=== PATIENT | female | born 1955 | race Caucasian/White ===

== ENCOUNTER → 2017-12-26 14:20 | Outpatient (CLI) | payer OTHER, SELFPAY ==
--- NOTE | 2017-12-26 | DI.MG.S_ITS ---
BILATERAL DIGITAL SCREENING MAMMOGRAM 3D/2D WITH CAD: 12/26/2017 CLINICAL: Routine screening. Family history of breast cancer. Comparison is made to exams dated: 04/11/2016 mammogram, 12/06/2013 mammogram, and 04/17/2010 mammogram - [facility]. There are scattered fibroglandular elements in both breasts. Current study was also evaluated with a Computer Aided Detection (CAD) system. There is a benign fine calcification within the skin of the right breast at 6 o'clock. There is a benign fine calcification within the skin of the left breast at 6 o'clock. No other significant masses or calcifications are seen in either breast. There has been no significant interval change. IMPRESSION: There is no mammographic evidence of malignancy. A 1 year screening mammogram is recommended. This exam was interpreted at Station ID: [id number]. NOTE: For mammograms, a report in lay terms will be sent to the patient. Approximately 15% of breast malignancies will not be visualized mammographically. In the management of a palpable breast mass, a negative mammogram must not discourage biopsy of a clinically suspicious lesion. Electronically Signed By: Adrián duran/heather:12/26/2017 16:20:25 letter sent: Normal Exam ACR BI-RADS Category 2: Benign Finding(s) 3342F
== END ==
PROVIDERS: PCP Family Medicine; Visit Provider Family Medicine
DX: Z12.31 Encounter for screening mammogram for malignant neoplasm of breast (principal); Z80.3 Family history of malignant neoplasm of breast
CPT/HCPCS: 77063; 77067

== ENCOUNTER → 2018-01-26 09:53 | Outpatient (CLI) | payer OTHER, SELFPAY ==
[2018-01-26 10:57] LABS: Alanine Aminotransferase 43 IU/L (9-52); Albumin 4.3 g/dL (3.5-5.0); Albumin Globulin Ratio 1.4 (1.0-2.8); Alkaline Phosphatase 62 U/L (38-126); Aspartate Aminotransferase 26 IU/L (14-36); BUN Creatinine Ratio 26.7 (6-22); Bilirubin Total 0.5 mg/dL (0.2-1.3); Blood Urea Nitrogen 16 mg/dL (7-17); Calcium 9.8 mg/dL (8.4-10.2); Carbon Dioxide 29 mmol/L (22-32); Chloride 101 mmol/L (98-107); Estimated Glomerular Filt Rate > 60.0 mL/min (>60); Globulin 3.1 g/dL (1.7-4.1); Glucose 96 mg/dL (80-110); HEMOLYSIS < 15 (0-50); Potassium 4.1 mmol/L (3.4-5.1); Sodium 140 mmol/L (137-145); Total Protein 7.4 g/dL (6.3-8.2)
[2018-01-26 11:04] LABS: Add Manual Diff / Slide Review NO; Eosinophils Percent Auto 1.7 % (2-4); Hematocrit 42.2 % (36-46); Mean Corpuscular HGB Conc 35.6 % (30-36); Mean Corpuscular Volume 109.9 fL (80-100); Monocytes Percent Auto 14.3 % (3-14); Neutrophils Absolute Auto 2500 /uL (3000-5900); Platelet Count 277 X10^3/uL (150-400); Red Blood Cell Count 3.84 X10^6/uL (4.0-5.2); Red Cell Distribution Width 15.7 % (11.6-14.8); White Blood Cell Count 4.2 X10^3/uL (4.5-11.0)
[2018-01-26 11:05] LABS: Mean Corpuscular Hemoglobin 39.1 PG (26-34)
== END ==
PROVIDERS: Family Provider Family Medicine; PCP Family Medicine; Visit Provider Internal Medicine Hematology & Oncology
DX: D68.61 Antiphospholipid syndrome (principal)
CPT/HCPCS: 36415; 80053; 85025; 85597; 85613; 85730; 86147

== ENCOUNTER → 2019-02-06 08:13 | Outpatient (CLI) | payer OTHER, SELFPAY ==
--- NOTE | 2019-02-06 | DI.MG.S_ITS ---
BILATERAL DIGITAL SCREENING MAMMOGRAM 3D/2D WITH CAD: 02/06/2019 CLINICAL: Routine screening. Family history of breast cancer. Comparison is made to exams dated: 12/26/2017 mammogram, 04/11/2016 mammogram, and 12/06/2013 mammogram - [facility]. The tissue of both breasts is heterogeneously dense. This may lower the sensitivity of mammography. Current study was also evaluated with a Computer Aided Detection (CAD) system. No significant masses, calcifications, or other findings are seen in either breast. There has been no significant interval change. IMPRESSION: NEGATIVE There is no mammographic evidence of malignancy. A 1 year screening mammogram is recommended. This exam was interpreted at Station ID: [id number]. NOTE: For mammograms, a report in lay terms will be sent to the patient. Approximately 15% of breast malignancies will not be visualized mammographically. In the management of a palpable breast mass, a negative mammogram must not discourage biopsy of a clinically suspicious lesion. Electronically Signed By: Mando sarmiento/heather:02/08/2019 07:31:49 letter sent: Normal Exam ACR BI-RADS Category 1: Negative 3341F
== END ==
PROVIDERS: PCP Family Medicine; Visit Provider Family Medicine
DX: Z12.31 Encounter for screening mammogram for malignant neoplasm of breast (principal); Z80.3 Family history of malignant neoplasm of breast
CPT/HCPCS: 77063; 77067

== ENCOUNTER → 2019-02-22 16:21 | Outpatient (CLI) | payer OTHER, SELFPAY ==
[2019-02-22 18:45] LABS: TSH w/ Reflex to FT4 1.53 uIU/mL (0.47-4.68)
== END ==
PROVIDERS: PCP Family Medicine; Visit Provider Family Medicine
DX: E03.9 Hypothyroidism, unspecified (principal)
CPT/HCPCS: 36415; 84443

== ENCOUNTER → 2019-03-11 09:20 | Oncology outpatient (ONC) | payer OTHER, SELFPAY ==
[2018-02-12 11:53] VITALS: BP 129/81; PULSE 70; RESP 18; TEMP 36.8; O2SAT 95
--- NOTE | 2018-02-12 12:23 | P.PNONC_ITS ---
PN -Subjective Interval history: Sakshi Garcia is 63 year old female. She carries a diagnosis of antiphospholipid antibody syndrome (APS) secondary to lupus anticoagulant. 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 Hypercoagulable workup dated 2006 and 2015: Factor II and factor V Leiden mutation negative (04/15/2006). Antithrombin III activity level normal at 113 ( 01/08/2016). Homocystine level 6.7 (normal less than 12). Anticardiolipin antibody for IgA IgG IgM all <6 ( normal 0-12). Beta-2 glycoprotein antibodies for IgG, IgA and IgM less than 5, 9, and 7, respectively (normal less than 20). Lupus anticoagulant detected on 05/16/2006: Dilute Thiago viper venom test positive at 82.6 seconds, (normal less than 44.5 seconds). She has been followed by Dr. Falk, and lifelong anticoagulation was recommended. She was started on coumadin and continues with Coumadin with INR checks every month which she does at home report. She presents today for her 1 year clinical evaluation. He was last seen by Dr. Falk on 02/11/2017. Clinically, she reports no bleeding or new events of leg pain or chest pain. - Additional ROS All systems PM: reviewed and no additional remarkable complaints except as stated Home Medications and Allergies Home Medications Medication Instructions Recorded Confirmed Type CHOLECALCIFEROL (VITAMIN D) 2,000 iu PO Q DAY #0 09/24/11 01/30/18 History [6 MP] 100 mg Q DAY #0 09/24/11 01/30/18 History infliximab [Remicade] 100 mg IV #0 09/24/11 01/30/18 History enoxaparin [Lovenox] 100 mg SQ QDAY #22 syr 03/28/17 01/30/18 Rx warfarin 7.5 mg tablet 7.5 mg PO QDAY #100 tab 09/25/17 01/30/18 Rx mercaptopurine 50 mg tablet 50 mg PO QDAY #30 tab 10/21/17 01/30/18 Rx levothyroxine 125 mcg tablet 62.5 mcg PO QAM #45 tab 01/07/18 01/30/18 Rx metoprolol tartrate 100 mg tablet 50 mg PO BID #90 tab 01/07/18 01/30/18 Rx omeprazole 20 mg capsule,delayed 20 mg PO QDAY #90 cap 01/07/18 01/30/18 Rx release spironolactone 25 mg tablet 75 mg PO BID #540 tab 01/07/18 01/30/18 Rx Allergies Allergy/AdvReac Type Severity Reaction Status Date / Time sulfamethoxazole Allergy Mild Verified 01/30/18 15:04 [From Bactrim] trimethoprim [From Bactrim] Allergy Mild Verified 01/30/18 15:04 Exam Vital signs: Last Vital Signs Temp 98.3 F 02/12/18 11:53 Pulse 70 02/12/18 11:53 Resp 18 02/12/18 11:53 BP 129/81 02/12/18 11:53 Pulse Ox 95 02/12/18 11:53 ECOG 1 Narrative: Gen: WDWN, NAD, pleasant and cooperative, here by herself. Heent: NCAT, EOMI, PERLLA, aniteric. Neck: supple, no palpable thyromegaly, no palpable lymphadenopathy Rest: no wheezes. clear to auscultation bilaterally Card: RRR, S1 and S2 normal, no MRG Abd: soft, non-tender, no palpable organomegaly Ext: no pitting edema noted Neuro: AOx3, nonfocal. Results - Labs Reviewed. Assessment and Plan (1) Venous thromboembolism (VTE) Problem details: She carries a diagnosis of antiphospholipid antibody syndrome (APS) secondary to lupus anticoagulant. 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 Assessment and Plan: Clinically, she has been doing well. I will continue current coumadin with INR monitoring without any changes. Return to clinic in one year.
[2019-02-15 12:07] LABS: Add Manual Diff / Slide Review NO; Basophils Absolute Auto 100 /uL (0-100); Basophils Percent Auto 0.9 % (0-2); Eosinophils Absolute Auto 100 /uL (0-450); Eosinophils Percent Auto 1.9 % (2-4); Hematocrit 44.8 % (36-46); Hemoglobin 15.5 g/dL (12.0-16.0); Lymphocytes Absolute Auto 1300 /uL (1100-4500); Lymphocytes Percent Auto 22.2 % (25-40); Mean Corpuscular HGB Conc 34.5 % (30-36); Mean Corpuscular Hemoglobin 36.4 PG (26-34); Mean Corpuscular Volume 105.6 fL (80-100); Monocytes Absolute Auto 600 /uL (0-900); Monocytes Percent Auto 10.7 % (3-14); Neutrophils Absolute Auto 3800 /uL (1500-7000); Neutrophils Percent Auto 64.3 % (50-75); Platelet Count 315 X10^3/uL (150-400); Red Blood Cell Count 4.25 X10^6/uL (4.0-5.2); Red Cell Distribution Width 14.3 % (11.6-14.8); White Blood Cell Count 5.9 X10^3/uL (4.5-11.0)
[2019-02-15 12:17] LABS: Alanine Aminotransferase 23 IU/L (<35); Albumin 4.6 g/dL (3.5-5.0); Albumin Globulin Ratio 1.4 (1.0-2.8); Alkaline Phosphatase 80 U/L (38-126); Aspartate Aminotransferase 26 IU/L (14-36); BUN Creatinine Ratio 24.3 (6-22); Bilirubin Total 0.5 mg/dL (0.2-1.3); Blood Urea Nitrogen 17 mg/dL (7-17); Calcium 9.8 mg/dL (8.4-10.2); Carbon Dioxide 31 mmol/L (22-32); Chloride 102 mmol/L (98-107); Estimated Glomerular Filt Rate > 60.0 mL/min (>60); Globulin 3.2 g/dL (1.7-4.1); Glucose 91 mg/dL (80-110); HEMOLYSIS < 15 (0-50); Potassium 3.9 mmol/L (3.4-5.1); Sodium 141 mmol/L (137-145); Total Protein 7.8 g/dL (6.3-8.2)
[2019-02-15 12:22] LABS: D Dimer < 200 ng/mL (<230)
--- NOTE | 2019-02-16 10:39 | ONC.SCHED ---
Patient has been moved for a new patient. Please don't move again.
[2019-03-11 09:54] VITALS: BP 123/76; PULSE 76; RESP 18; TEMP 36.8; O2SAT 96
--- NOTE | 2019-03-11 10:07 | P.PNONC_ITS ---
PN -Subjective Interval history: ID/CC: Sakshi Garcia is 63 year old female with APS and multiple VTE. Hematogy History: She carries a diagnosis of antiphospholipid antibody syndrome (APS) secondary to lupus anticoagulant. 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 Hypercoagulable workup dated 2006 and 2015: Factor II and factor V Leiden mutation negative (04/15/2006). Antithrombin III activity level normal at 113 (01/08/2016). Homocystine level 6.7 (normal less than 12). Anticardiolipin antibody for IgA IgG IgM all <6 ( normal 0-12). Beta-2 glycoprotein antibodies for IgG, IgA and IgM less than 5, 9, and 7, respectively (normal less than 20). Lupus anticoagulant detected on 05/16/2006: Dilute Thiago viper venom test positive at 82.6 seconds, (normal less than 44.5 seconds). She has been followed by Dr. Falk, and lifelong anticoagulation was recommended. She was started on coumadin and continues with Coumadin with INR checks every month which she does at home report. She presents today for her 1 year clinical evaluation. He was last seen by Dr. Falk on 02/11/2017. Treatments: Coumadin Interim Events: She is not using Coumadin and has been followed by Terrance Vallejo. She tolerated very well. No bleeding events. No worsening shortness of breath or chest pain. No abdominal pain. No lower extremity swelling. - Additional ROS All systems PM: reviewed and no additional remarkable complaints except as stated Home Medications and Allergies Home Medications Medication Instructions Recorded Confirmed Type CHOLECALCIFEROL (VITAMIN D) 2,000 iu PO Q DAY #0 09/24/11 03/11/19 History Remicade 100 mg IV Q12W #0 09/24/11 03/11/19 History omeprazole 20 mg capsule,delayed 20 mg PO QDAY #90 cap 01/07/18 03/11/19 Rx release warfarin 7.5 mg tablet 7.5 mg PO QDAY #100 tab 06/17/18 03/11/19 Rx prothrombin time test strips #6 each 07/09/19 01/23/20 Rx mercaptopurine 50 mg tablet 50 mg PO DAILY #90 tab 12/02/18 03/11/19 Rx metoprolol tartrate 100 mg tablet See Rx Instructions .ROUTE 12/03/18 03/11/19 Rx .COMPLEX #90 tablet spironolactone 25 mg tablet See Rx Instructions .ROUTE 12/03/18 03/11/19 Rx .COMPLEX #540 tablet warfarin 5 mg tablet 5 mg PO DAILY #30 tab 02/22/19 03/11/19 Rx levothyroxine 125 mcg tablet See Rx Instructions .ROUTE 02/23/19 03/11/19 Rx .COMPLEX #45 tablet Allergies Allergy/AdvReac Type Severity Reaction Status Date / Time sulfamethoxazole Allergy Mild Verified 02/02/19 09:41 [From Bactrim] trimethoprim [From Bactrim] Allergy Mild Verified 02/02/19 09:41 Exam Vital signs: Vital Signs Temp Pulse Resp BP Pulse Ox 03/11/19 09:54 98.3 F 76 18 123/76 96 Intake and Output 03/10/19 03/11/19 03/11/19 23:59 07:59 15:59 Other: Weight 72.5 kg Patient Weight 03/11/19 23:59 Weight 72.5 kg Narrative: Gen: WDWN, NAD, pleasant and cooperative. HEENT: NCAT, EOMI, PERRLA, anicteric sclera. Neck: Supple, No palpable thyromegaly or lymphadenopathy. Respiratory: CTAB, no wheezes audible. No JVD Cardiovascular: RRR, S1 and S2 normal, no M/G/R. Abdomen: Soft, NTND, BS normal, no palpable organomegaly Extremities: No LE pitting edema. Lymphatic: no palpable lymph nodes in the neck, axillae, or groins. Neurological: AOx3, CN II-XII grossly intact. No focal motor or sensory deficit. Psychiatric: Good judgment and insight; normal affect; normal thought process; cooperative, no depression, no anxiety. Results - Labs Laboratory Last Values WBC 5.9 X10^3/uL (4.5-11.0) 02/15/19 11:55 RBC 4.25 X10^6/uL (4.0-5.2) 02/15/19 11:55 Hgb 15.5 g/dL (12.0-16.0) 02/15/19 11:55 Hct 44.8 % (36-46) 02/15/19 11:55 MCV 105.6 fL (80-100) H 02/15/19 11:55 MCH 36.4 PG (26-34) H 02/15/19 11:55 MCHC 34.5 % (30-36) 02/15/19 11:55 RDW 14.3 % (11.6-14.8) 02/15/19 11:55 Plt Count 315 X10^3/uL (150-400) 02/15/19 11:55 Neut % (Auto) 64.3 % (50-75) 02/15/19 11:55 Lymph % (Auto) 22.2 % (25-40) L 02/15/19 11:55 Barry % (Auto) 10.7 % (3-14) 02/15/19 11:55 Eos % (Auto) 1.9 % (2-4) L 02/15/19 11:55 Baso % (Auto) 0.9 % (0-2) 02/15/19 11:55 Neut # (Auto) 3800 /uL (7419-6130) 02/15/19 11:55 Lymph # (Auto) 1300 /uL (6999-2692) 02/15/19 11:55 Barry # (Auto) 600 /uL (0-900) 02/15/19 11:55 Eos # (Auto) 100 /uL (0-450) 02/15/19 11:55 Baso # (Auto) 100 /uL (0-100) 02/15/19 11:55 D-Dimer < 200 ng/mL (<230) 02/15/19 11:55 Sodium 141 mmol/L (137-145) 02/15/19 11:55 Potassium 3.9 mmol/L (3.4-5.1) 02/15/19 11:55 Chloride 102 mmol/L (98-107) 02/15/19 11:55 Carbon Dioxide 31 mmol/L (22-32) 02/15/19 11:55 BUN 17 mg/dL (7-17) 02/15/19 11:55 Creatinine 0.70 mg/dL (0.52-1.04) 02/15/19 11:55 Estimated GFR > 60.0 mL/min (>60) 02/15/19 11:55 BUN/Creatinine Ratio 24.3 (6-22) H 02/15/19 11:55 Glucose 91 mg/dL (80-110) 02/15/19 11:55 Calcium 9.8 mg/dL (8.4-10.2) 02/15/19 11:55 Total Bilirubin 0.5 mg/dL (0.2-1.3) 02/15/19 11:55 AST 26 IU/L (14-36) 02/15/19 11:55 ALT 23 IU/L (<35) 02/15/19 11:55 Alkaline Phosphatase 80 U/L (38-126) 02/15/19 11:55 Total Protein 7.8 g/dL (6.3-8.2) 02/15/19 11:55 Albumin 4.6 g/dL (3.5-5.0) 02/15/19 11:55 Globulin 3.2 g/dL (1.7-4.1) 02/15/19 11:55 Albumin/Globulin Ratio 1.4 (1.0-2.8) 02/15/19 11:55 Assessment and Plan (1) Venous thromboembolism (VTE) Overview: 64 year old with antiphospholipid antibody syndrome (APS) secondary to lupus anticoagulant and three separate VTE events including portal vein thrombosis in December 2005, right renal vein thrombosis measuring 5 cm extending into the inferior vena cava in March 08, 2006, and right lower extremity DVT in 03/15/2006. Assessment: Clinically, she has been doing well. I recommend continue current coumadin with INR monitoring. I talked with the patient and her that she can either continue follow-up with me or follow-up her primary care provider. If there is any new change or new concern, I encouraged her to call us for a follow-up visit. Patient voiced understanding. Plan: RTC PRN.
== END ==
PROVIDERS: Family Provider Family Medicine; PCP Family Medicine; Visit Provider Internal Medicine Hematology & Oncology
DX: D68.62 Lupus anticoagulant syndrome (principal); Z86.718 Personal history of other venous thrombosis and embolism; Z79.01 Long term (current) use of anticoagulants
CPT/HCPCS: 36415; 80053; 85025; 85379; 99214

== ENCOUNTER 2020-07-17 22:50 | Emergency (ER) | payer MEDICARE, OTHER, SELFPAY ==
--- NOTE | 2020-07-17 22:58 | DI.CT.S_ITS ---
PROCEDURE: CT HEAD/BRAIN WO CON INDICATIONS: trauma TECHNIQUE: Noncontrast 4.5 mm thick angled axial sections acquired from the foramen magnum to the vertex, with coronal and sagittal reformats. For radiation dose reduction, the following was used: automated exposure control, adjustment of mA and/or kV according to patient size. COMPARISON: None. FINDINGS: Image quality: Excellent. CSF spaces: Basal cisterns are patent. No extra-axial fluid collections. The ventricles are symmetric in size and shape. Brain: No intracranial bleeds or masses. There is cerebral volume loss for age, with resultant ventricular and sulcal prominence. There are periventricular and deep white matter chronic small vessel ischemic changes. Skull and face: Calvarium and visualized facial bones appear intact, without suspicious lesions. Sinuses: Visualized sinuses and mastoids are clear. IMPRESSION: Negative for acute stroke, hemorrhage, or mass. No evidence of significant intracranial sequelae of acute trauma. Comment: Final report is concordant with preliminary interpretation provided by [facility]. Dictated by: Eriberto Cook M.D. on 07/18/2020 at 7:50 Approved by: Eriberto Cook M.D. on 07/18/2020 at 7:51
--- NOTE | 2020-07-17 22:58 | DI.CT.S_ITS ---
PROCEDURE: CT CERVICAL SPINE WO CON INDICATIONS: trauma TECHNIQUE: Noncontrast 3 mm thick sections acquired from the skull base to the T4 level. Sagittal and coronal reformats were then constructed. For radiation dose reduction, the following was used: automated exposure control, adjustment of mA and/or kV according to patient size. COMPARISON: None. FINDINGS: Image quality: Excellent. Bones: No fractures or dislocations. Visualized superior ribs are intact. Severe cervical spondylitic change. A large right posterior osteophyte at C2-C3 results in at least moderate narrowing of the right side of the canal at that level. A large left posterior osteophyte at C4-C5 severely narrows the left side of the canal at that level. There is moderate canal stenosis at C5-C6 and C6-C7. There is multilevel bony foraminal narrowing, including severe bilateral foraminal narrowing at C4-C5 and C5-C6. Soft tissues: Prevertebral soft tissues are normal in thickness. No paravertebral hematomas. No apical pneumothoraces. IMPRESSION: 1. No evidence acute cervical fracture or dislocation. 2. Severe cervical spondylosis with multilevel canal stenosis and foraminal stenosis. Comment: Final report is concordant with preliminary interpretation provided by [facility]. Dictated by: Eriberto Cook M.D. on 07/18/2020 at 7:59 Approved by: Eriberto Cook M.D. on 07/18/2020 at 8:01
[2020-07-17 23:00] VITALS: BP 124/76; PULSE 87; RESP 20; TEMP 37.5; O2SAT 97
--- NOTE | 2020-07-18 00:11 | ED_ITS ---
HPI - Fall General Chief Complaint: Trauma Stated Complaint: FALL HIT HEAD Time Seen by Provider: 07/18/20 00:10 Source: patient and family Mode of arrival: Wheelchair History of Present Illness HPI Narrative: Patient is a 65-year-old female who is an alcoholic on Coumadin for antiphospholipid antibody presenting after a ground level fall. She was sleeping she got out of bed tripped on the step stool to get into her bed hitting the nightstand. heard right away and came up there was no loss of consciousness. She has no neck pain she has a mild right ankle pains is ambulatory on. She does drink alcohol and admits to drinking alcohol tonight. Related Data Home Medications Medication Instructions Recorded Confirmed Remicade 100 mg IV Q12W #0 09/24/11 03/11/19 Previous Rx's Medication Instructions Recorded warfarin 7.5 mg tablet 7.5 mg PO QDAY #100 tab 06/17/18 prothrombin time test strips #6 each 08/25/18 warfarin 5 mg tablet 5 mg PO DAILY #90 tab 08/03/19 mercaptopurine 50 mg tablet 50 mg PO DAILY #90 tab 10/11/19 spironolactone 25 mg tablet See Rx Instructions .ROUTE 10/11/19 .COMPLEX #540 tablet omeprazole 20 mg capsule,delayed 20 mg PO QDAY #90 cap 10/21/19 release levothyroxine 125 mcg tablet See Rx Instructions .ROUTE 06/06/20 .COMPLEX #45 tablet metoprolol tartrate 100 mg tablet See Rx Instructions .ROUTE 06/06/20 .COMPLEX #90 tablet disulfiram 250 mg tablet 250 mg PO DAILY #90 tab 06/08/20 Allergies Allergy/AdvReac Type Severity Reaction Status Date / Time sulfamethoxazole Allergy Mild Verified 06/08/20 10:10 [From Bactrim] trimethoprim [From Bactrim] Allergy Mild Verified 06/08/20 10:10 Review of Systems Review of Systems Narrative: GENERAL: Denies chills, fatigue, malaise, fever, sweats, travel HEENT: Denies sinus pain, ear pain, sore throat, difficulty swallowing, neck pain RESPIRATORY: Denies dyspnea, cough, wheezing, hemoptysis, sputum. CARDIOVASCULAR: Denies chest pain, palpitations, orthopnea, edema GASTROINTESTINAL: Denies nausea, vomiting, abdominal pain, diarrhea, constipation, melena. : Denies dysuria, frequency, incontinence, hematuria, urinary retention, flank pain. MUSCULOSKELETAL: Denies weakness, joint pain, or bony pain SKIN: No rash, no erythema, no pruritus NEUROLOGIC: Head injury, see HPI PSYCHIATRIC: No concerning psychosocial issues. 12 point review of systems is negative except for those stated above and HPI Patient History Medical History Antiphospholipid antibody syndrome Deep vein thrombosis Depression Psoriasis Ulcerative colitis Surgical History S/P total abdominal hysterectomy and bilateral salpingo-oophorectomy Family History Mother Depression Father No problems noted. Social History marital status: Smoking Status: Never smoker alcohol intake: current (ON OCCASION) substance use type: does not use Smoking Status: Never smoker Exam Initial Vital Signs Initial Vital Signs: Vital Signs Temperature 99.5 F 07/17/20 23:00 Pulse Rate 87 07/17/20 23:00 Respiratory Rate 20 07/17/20 23:00 Blood Pressure 124/76 07/17/20 23:00 Pulse Oximetry 97 07/17/20 23:00 GENERAL: Alert well-appearing 65-year-old female and in no acute distress. HEENT: Head small right posterior contusion,EOMI, pupils reactive, face symmetric, moist mucous membranes NECK: No vertebral tenderness no step-off CARDIOVASCULAR: Regular rate and rhythm without murmurs, rubs or gallops. RESPIRATORY: Breath sounds equal bilaterally, no wheezes rales or rhonchi. ABDOMEN: Soft, nontender. Normoactive bowel sounds all 4 quadrants. No guarding or rebound. EXTREMITIES: Normal range of motion, no clubbing or edema. Neurovascularly intact. No swelling of right lower ankle distal pedal pulse intact no pain over malleoli NEUROLOGICAL: Alert and oriented x4.Normal gait and speech. Cranial nerves II through XII grossly intact. Good egrekn-wh-oojo, good [id number], strength equal bilaterally, no dysarthria or aphasia, sensation in tact to soft touch bilaterally, no visual changes, no facial droop SKIN: Warm, dry, no laceration, no petechiae, no rashes or lesions. Course Orders Ordered: ED Orders 07/17/20 22:58 CT cervical spine wo con Stat CT head/brain wo con Stat Vital Signs Vital signs: Vital Signs - 8 hr 07/17/20 23:00 Temperature 99.5 F Pulse Rate 87 Respiratory Rate 20 Blood Pressure 124/76 Pulse Oximetry 97 MDM - Fall Imaging Data CT - cervical spine: Radiologist's Impression: PROCEDURE: CT CERVICAL SPINE WO CON INDICATIONS: trauma TECHNIQUE: Noncontrast 3 mm thick sections acquired from the skull base to the T4 level. Sagittal and coronal reformats were then constructed. For radiation dose reduction, the following was used: automated exposure control, adjustment of mA and/or kV according to patient size. COMPARISON: None. FINDINGS: Image quality: Excellent. Bones: No fractures or dislocations. Visualized superior ribs are intact. Se karen cervical spondylitic change. A large right posterior osteophyte at C2-C3 results in at least moderate narrowing of the right side of the canal at that level. A large left posterior osteophyte at C4-C5 severely narrows the left side of the canal at that level. There is moderate canal stenosis at C5-C6 and C6-C7. There is multilevel bony foraminal narrowing, including severe bilateral foraminal narrowing at C4-C5 and C5-C6. Soft tissues: Prevertebral soft tissues are normal in thickness. No paravertebral hematomas. No apical pneumothoraces. IMPRESSION: 1. No evidence acute cervical fracture or dislocation. 2. Severe cervical spondylosis with multilevel canal stenosis and foraminal stenosis. Comment: Final report is concordant with preliminary interpretation provided by [facility]. Dictated by: Eriberto Cook M.D. on 07/18/2020 at 7:59 CT scan - head: Radiologist's Impression: PROCEDURE: CT HEAD/BRAIN WO CON INDICATIONS: trauma TECHNIQUE: Noncontrast 4.5 mm thick angled axial sections acquired from the foramen magnum to the vertex, with coronal and sagittal reformats. For radiation dose reduction, the following was used: automated exposure control, adjustment of mA and/or kV according to patient size. COMPARISON: None. FINDINGS: Image quality: Excellent. CSF spaces: Basal cisterns are patent. No extra-axial fluid collections. The ventricles are symmetric in size and shape. Brain: No intracranial bleeds or masses. There is cerebral volume loss for age, with resultant ventricular and sulcal prominence. There are periventricular and deep white matter chronic small vessel ischemic changes. Skull and face: Calvarium and visualized facial bones appear intact, without suspicious lesions. Sinuses: Visualized sinuses and mastoids are clear. IMPRESSION: Negative for acute stroke, hemorrhage, or mass. No evidence of significant intracranial sequelae of acute trauma. Comment: Final report is concordant with preliminary interpretation provided by [facility]. Dictated by: Eriberto Cook M.D. on 07/18/2020 at 7:50 MDM Narrative Medical decision making narrative: The patient is offered imaging of her ankle but she does not wanted at this time. She is on Coumadin she checked her INR at home it was actually subtherapeutic according her 1.7. She has a small contusion. Head CT is negative. She overall is feeling better and would like to go home. Her is with her and agrees this. Discharge Plan Departure Patient Disposition: Home Clinical Impression: Closed head injury, Right ankle sprain Instructions: Closed Head Injury Activity Restrictions/Additional Instructions: *You have been diagnosed with closed head injury right ankle sprain *What to do: At this time CT scans are negative. Increase activity as tolerated. If still having pain and right ankle you may require x-ray *Continue to take medications as directed Tylenol 650 mg only needed for pain *Follow up with your primary care provider in 2-3 days *Return to ER if you should have persistent vomiting, confusion, weakness numbness or tingling or any new, worsening or concerning symptoms Prescriptions: No Action disulfiram 250 mg tablet 250 mg PO DAILY Qty: 90 RF: 3 Remicade 100 MG recon soln 100 mg IV Q12W Qty: 0 RF: 0 warfarin [Coumadin] 7.5 mg tablet 7.5 mg PO QDAY Qty: 100 RF: 2 Hold Instructions: change dose (DME) [place] PT strip See Dose Instructions .ROUTE .MEDSUPPLY Qty: 6 RF: 11 warfarin 5 mg tablet 5 mg PO DAILY Qty: 90 RF: 3 spironolactone 25 mg tablet See Rx Instructions .ROUTE .COMPLEX Qty: 540 RF: 3 mercaptopurine 50 mg tablet 50 mg PO DAILY Qty: 90 RF: 3 omeprazole 20 mg capsule,delayed release(DR/EC) 20 mg PO QDAY Qty: 90 RF: 3 metoprolol tartrate 100 mg tablet See Rx Instructions .ROUTE .COMPLEX Qty: 90 RF: 0 levothyroxine 125 mcg tablet See Rx Instructions .ROUTE .COMPLEX Qty: 45 RF: 0 Referrals: Terrance Barrientos MD [Primary Care Provider] -
[2020-07-18 00:23] VITALS: BP 101/64; PULSE 87; RESP 18; O2SAT 92
== END 2020-07-18 00:24 | disposition home or self-care (01) ==
PROVIDERS: Emergency Provider Emergency Medicine; PCP Family Medicine
DX: S09.90XA Unspecified injury of head, initial encounter (principal); Z79.01 Long term (current) use of anticoagulants; W19.XXXA Unspecified fall, initial encounter; S93.401A Sprain of unspecified ligament of right ankle, initial encounter
CPT/HCPCS: 70450; 72125; 99283; 99284

== ENCOUNTER → 2020-08-23 14:36 | Outpatient (CLI) | payer MEDICARE, OTHER, SELFPAY ==
[2020-08-24 15:36] LABS: SARS CoV19 IgG Negative (Negative); SARS-CoV19- IgM Negative (Negative)
== END ==
PROVIDERS: PCP Family Medicine; Referring Provider Family Medicine; Visit Provider Family Medicine
DX: D84.9 Immunodeficiency, unspecified (principal); Z20.822 Contact with and (suspected) exposure to COVID-19
CPT/HCPCS: 36415; 86769

== ENCOUNTER → 2020-11-13 15:24 | Outpatient (CLI) | payer MEDICARE, OTHER, SELFPAY | PROVIDERS: PCP Family Medicine; Referring Provider Family Medicine; Visit Provider Family Medicine | DX: D68.61 Antiphospholipid syndrome (principal); K51.90 Ulcerative colitis, unspecified, without complications | CPT/HCPCS: 36415; 86769 ==

== ENCOUNTER 2021-06-04 16:59 | Emergency (ER) | payer MEDICARE, OTHER, SELFPAY ==
[2021-06-04 17:04] VITALS: BP 146/91; PULSE 83; RESP 18; TEMP 36.4; O2SAT 100
[2021-06-04 17:25] LABS: Add Manual Diff / Slide Review NO; Basophils Absolute Auto 100 /uL (0-100); Basophils Percent Auto 0.9 % (0-2); Eosinophils Absolute Auto 100 /uL (0-450); Eosinophils Percent Auto 1.8 % (2-4); Hematocrit 47.3 % (36-46); Hemoglobin 16.2 g/dL (12.0-16.0); Lymphocytes Absolute Auto 1100 /uL (1100-4500); Lymphocytes Percent Auto 13.9 % (25-40); Mean Corpuscular HGB Conc 34.3 % (30-36); Mean Corpuscular Hemoglobin 34.3 PG (26-34); Mean Corpuscular Volume 100.1 fL (80-100); Monocytes Absolute Auto 900 /uL (0-900); Monocytes Percent Auto 11.9 % (3-14); Neutrophils Absolute Auto 5600 /uL (1500-7000); Neutrophils Percent Auto 71.5 % (50-75); Platelet Count 319 X10^3/uL (150-400); Red Blood Cell Count 4.73 X10^6/uL (4.0-5.2); Red Cell Distribution Width 14.8 % (11.6-14.8); White Blood Cell Count 7.8 X10^3/uL (4.5-11.0)
[2021-06-04 17:47] LABS: BUN Creatinine Ratio 18.7 (6-22); Blood Urea Nitrogen 14 mg/dL (7-17); C-Reactive Protein Quant 1.2 mg/dL (<1.0); Calcium 9.5 mg/dL (8.4-10.2); Carbon Dioxide 27 mmol/L (22-32); Chloride 106 mmol/L (98-107); Estimated Glomerular Filt Rate > 60 mL/min (>60); Glucose 104 mg/dL (80-110); HEMOLYSIS < 15 (0-50); Sodium 140 mmol/L (137-145)
[2021-06-04 18:00] LABS: Erythrocyte Sedimentation Rate 8 MM/HR (0-20)
--- NOTE | 2021-06-04 20:45 | ED_ITS ---
HPI - Recheck/Abnormal Lab/Rx General Chief Complaint: Recheck/Abnormal Lab/Rx Stated Complaint: JAW PAIN Time Seen by Provider: 06/04/21 17:03 Source: patient Mode of arrival: Ambulatory History of Present Illness HPI narrative: 66-year-old female nonsmoker with history of ulcerative colitis and atrial fibrillation on Coumadin presents with her for evaluation of a left- sided jaw pain which has been present over the past few days. She denies any headache or blurred vision. She denies any neurologic symptoms such as difficulty with speech, dizziness, ataxia or extremity numbness, weakness or tingling. She denies any dental pain or intraoral drainage. She denies any eye pain, blurred or double vision. She has had no chest pain or shortness of breath and denies cough or fever. She has had no nausea or vomiting. She p resented initially to the walk-in clinic and was sent here for evaluation of the possibility of giant cell arteritis. Related Data Previous Rx's Medication Instructions Recorded warfarin 7.5 mg tablet (Coumadin) 7.5 mg PO QDAY #100 tab 06/17/18 prothrombin time test strips #6 each 08/25/18 ([facility] PT) disulfiram 250 mg tablet 250 mg PO DAILY #90 tab 06/08/20 levothyroxine 125 mcg tablet See Rx Instructions .ROUTE 08/17/20 .COMPLEX #45 tablet metoprolol tartrate 100 mg tablet See Rx Instructions .ROUTE 08/17/20 .COMPLEX #90 tablet warfarin 5 mg tablet 5 mg PO DAILY #90 tab 08/22/20 mercaptopurine 50 mg tablet 50 mg PO DAILY #90 tab 11/10/20 omeprazole 20 mg capsule,delayed 20 mg PO QDAY #90 cap 11/10/20 release spironolactone 25 mg tablet See Rx Instructions .ROUTE 11/10/20 .COMPLEX #540 tablet Allergies Allergy/AdvReac Type Severity Reaction Status Date / Time sulfamethoxazole Allergy Mild Verified 06/04/21 16:07 [From Bactrim] trimethoprim [From Bactrim] Allergy Mild Verified 06/04/21 16:07 Review of Systems Review of Systems Narrative: GENERAL: Denies chills, fatigue, malaise, fever, sweats. HEENT: See HPI RESPIRATORY: Denies dyspnea, cough, wheezing, hemoptysis, sputum. CARDIOVASCULAR: Denies chest pain, palpitations, orthopnea, edema, GASTROINTESTINAL: Denies nausea, vomiting, abdominal pain, diarrhea, constipation, melena. : Denies dysuria, frequency, incontinence, hematuria, urinary retention. MUSCULOSKELETAL: denies weakness, joint pain, or bony pain SKIN: Denies rash, skin lesions, or other NEUROLOGIC: Denies weakness, headache, numbness, change in speech, confusion, seizures, incoordination. PSYCHIATRIC: No concerning psychosocial issues. 12 point review of systems is negative except for those stated above Patient History Medical History (Updated 06/04/21 @ 21:35 by Marcelino Renteria DO) Antiphospholipid antibody syndrome Deep vein thrombosis Depression Psoriasis Ulcerative colitis Surgical History S/P total abdominal hysterectomy and bilateral salpingo-oophorectomy Family History Mother Depression Father No problems noted. Social History marital status: Smoking Status: Never smoker alcohol intake: current (ON OCCASION) substance use type: does not use Smoking Status: Never smoker Exam Narrative Exam Narrative: GENERAL: [66] year old patient appears stated age. Well-developed patient, in no obvious or significant distress HEAD: Atraumatic. Normocephalic. Note temporal tenderness, inflammation EYES: Pupils equal round and reactive. Extraocular motions intact. No scleral icterus. No injection or drainage. ENT: Patient tender to palpation in left TMJ, no popping or clicking, increased pain with lateral motion of as well as opening and closing, Nose without bleeding, purulent drainage. Throat without erythema, tonsillar hypertrophy or exudate. Airway patent. NECK: Trachea midline. Non tender CARDIOVASCULAR: Regular rate and rhythm without murmurs, gallops, or rubs. RESPIRATORY: Clear to auscultation. Breath sounds equal bilaterally. No wheezes, rales, or rhonchi. GASTROINTESTINAL: Abdomen soft, non-tender, nondistended. EXTREMITIES: No edema or joint tenderness. BACK: Nontender without deformity or crepitance. No flank tenderness. NEURO: AOx3. SKIN: No rash or erythema of visible areas NIH Stroke Scale 1a. LOC: Patient is alert and keenly responsive (0) 1b. LOC Questions: Patient answers both LOC questions accurately (0) 1c. LOC Commands: Patient performs both tasks correctly (0) 2. Best Gaze: Normal (0) 3. Visual: No visual loss (0) 4. Facial palsy: Normal symmetrical movements (0) 5. Motor arm: No drift (0) 6. Motor leg: No drift (0) 7. Limb ataxia: Absent (0) 8. Sensory: Normal (0) 9. Best language: No aphasia; normal (0) 10. Dysarthria: Normal (0) 11. Extinction and inattention: No abnormality (0) NIHSS: 0 Initial Vital Signs Initial Vital Signs: Vital Signs Temperature 97.5 F L 06/04/21 17:04 Pulse Rate 83 06/04/21 17:04 Respiratory Rate 18 06/04/21 17:04 Blood Pressure 146/91 H 06/04/21 17:04 Pulse Oximetry 100 06/04/21 17:04 Course Orders Ordered: ED Orders 06/04/21 17:15 BMP [Basic Metabolic Panel] Stat CBC Auto Diff [Complete Blood Count AUTO DIFF] Stat CRP [C-Reactive Protein Quant] Stat ESR [Erythrocyte Sedimentation Rate] Stat Vital Signs Vital signs: Vital Signs - 8 hr 06/04/21 21:39 Pulse Rate 78 Respiratory Rate 16 Blood Pressure 157/88 H Pulse Oximetry 93 MDM - Recheck/Abnormal Lab/Rx Lab Data Result diagrams: 06/04/21 17:15 06/04/21 17:15 Labs: Lab Results 06/04/21 06/04/21 Range/Units 17:15 17:15 WBC 7.8 (4.5-11.0) X10^3/uL RBC 4.73 (4.0-5.2) X10^6/uL Hgb 16.2 H (12.0-16.0) g/dL Hct 47.3 H (36-46) % MCV 100.1 H (80-100) fL MCH 34.3 H (26-34) PG MCHC 34.3 (30-36) % RDW 14.8 (11.6-14.8) % Plt Count 319 (150-400) X10^3/uL Neut % (Auto) 71.5 (50-75) % Lymph % (Auto) 13.9 L (25-40) % [place] % (Auto) 11.9 (3-14) % Eos % (Auto) 1.8 L (2-4) % Baso % (Auto) 0.9 (0-2) % Neut # (Auto) 5600 (8579-7118) /uL Lymph # (Auto) 1100 (5122-8102) /uL [place] # (Auto) 900 (0-900) /uL Eos # (Auto) 100 (0-450) /uL Baso # (Auto) 100 (0-100) /uL ESR 8 (0-20) MM/HR Sodium 140 (137-145) mmol/L Potassium 4.0 (3.4-5.1) mmol/L Chloride 106 (98-107) mmol/L Carbon Dioxide 27 (22-32) mmol/L BUN 14 (7-17) mg/dL Creatinine 0.75 (0.52-1.04) mg/dL Estimated GFR > 60 (>60) mL/min BUN/Creatinine Ratio 18.7 (6-22) Glucose 104 (80-110) mg/dL Calcium 9.5 (8.4-10.2) mg/dL C-Reactive Protein 1.2 H (<1.0) mg/dL MDM Narrative Medical decision making narrative: Patient has very reassuring history and physical exam. Multiple diagnoses considered including cardiac ischemia which is thought unlikely given history and physical. Giant cell arteritis is considered but thought unlikely given lack of temporal pain, no vision change, very minimally elevated inflammatory markers. TMJ pain considered most likely given history and physical. Extensive discussion at the bedside regarding her diagnosis and treatment options. Return precautions discussed and questions answered to her apparent satisfaction Discharge Plan Departure Patient Disposition: Home Clinical Impression: TMJ (temporomandibular joint disorder) Instructions: DI for Temporomandibular Disorder Activity Restrictions/Additional Instructions: *You have been diagnosed with [left-sided temporomandibular joint disorder] *What to do: *Please continue to take your regular medications as directed. [ ] New medication prescriptions sent to your pharmacy: [ ] [ ] New medication written as a paper prescription [ x] No new medications given *Please follow up with your primary care provider in 2-3 days, call for an appointment. Let them know you were seen in the Emergency Department and that we ask that you be seen in follow up. We will electronically transmit a record of today's note if your PCP is in our system *If you do not have a primary care provider please contact the [facility] Resource line at [phone]. They will ask some questions about your medical history and help get you set up with a doctor in the community. *Return to Emergency Department if you should have any new, worsening or concerning symptoms, such as [fever greater than 101 F, shaking chills, worsening pain, persistent vomiting or other bothersome symptoms] Prescriptions: No Action disulfiram 250 mg tablet 250 mg PO DAILY Qty: 90 3RF warfarin [Coumadin] 7.5 mg tablet 7.5 mg PO QDAY Qty: 100 2RF Hold Instructions: change dose Rx Instructions: Take 1.5 tabs (11.25mg)by mouth on Mon. Take 1 tab (7.5mg) the other 6 days or as directed. (DME) Co[facility] PT strip See Dose Instructions .ROUTE .MEDSUPPLY Qty: 6 11RF Dose Instruction: As directed Rx Instructions: As directed for blood coagulation testing every 2 weeks metoprolol tartrate 100 mg tablet See Rx Instructions .ROUTE .COMPLEX Qty: 90 3RF Dose Instruction: TAKE ONE-HALF (1/2) TABLET (50 MG) TWICE A DAY Rx Instructions: TAKE ONE-HALF (1/2) TABLET (50 MG) TWICE A DAY levothyroxine 125 mcg tablet See Rx Instructions .ROUTE .COMPLEX Qty: 45 3RF Dose Instruction: TAKE ONE-HALF (1/2) TABLET EVERY MORNING Rx Instructions: TAKE ONE-HALF (1/2) TABLET EVERY MORNING. warfarin 5 mg tablet 5 mg PO DAILY Qty: 90 3RF Rx Instructions: Take one tablet daily or as directed mercaptopurine 50 mg tablet 50 mg PO DAILY Qty: 90 3RF spironolactone 25 mg tablet See Rx Instructions .ROUTE .COMPLEX Qty: 540 3RF Dose Instruction: TAKE 3 TABLETS TWICE A DAY Rx Instructions: TAKE 3 TABLETS TWICE A DAY omeprazole 20 mg capsule,delayed release(DR/EC) 20 mg PO QDAY Qty: 90 3RF Referrals: Terrance Barrientos MD [Primary Care Provider] -
[2021-06-04 21:39] VITALS: BP 157/88; PULSE 78; RESP 16; O2SAT 93
== END 2021-06-04 21:40 | disposition home or self-care (01) ==
PROVIDERS: Emergency Medicine; Emergency Provider Emergency Medicine; PCP Family Medicine
DX: M26.602 Left temporomandibular joint disorder, unspecified (principal)
CPT/HCPCS: 80048; 85025; 85651; 86140; 99281; 99282

== ENCOUNTER → 2021-07-10 10:52 | Outpatient (CLI) | payer MEDICARE, OTHER, SELFPAY ==
--- NOTE | 2021-07-10 10:55 | DI.RAD.S_ITS ---
PROCEDURE: XR HIP W PEL IF DONE RT 2V INDICATIONS: hip and back TECHNIQUE: AP pelvis with lateral view(s) of the right hip(s). COMPARISON: None. FINDINGS: Bones: No fractures or dislocations. Moderate bilateral hip joint osteoarthritic changes are seen . No evidence of avascular necrosis of femoral head. Pelvic ring appears intact. No suspicious bony lesions. Degenerative disc disease in visualized lower lumbar spine is seen. Soft tissues: The visualized bowel gas pattern is normal. No suspicious soft tissue calcifications. Surgical clips are noted in lower pelvis. IVC filter is noted. IMPRESSION: Moderate bilateral hip joint osteoarthritis. No hip fracture or dislocation. No evidence of avascular necrosis. Dictated by: Temo Crowley M.D. on 07/10/2021 at 11:47 Approved by: Temo Crowley M.D. on 07/10/2021 at 11:50
--- NOTE | 2021-07-10 10:55 | DI.RAD.S_ITS ---
PROCEDURE: XR LUMBAR SPINE 2-3V INDICATIONS: hip and back TECHNIQUE: 3 views of the lumbar spine were acquired. COMPARISON: None. FINDINGS: Bones: 5 [id number] vertebrae are present. There is minimal 1-2 mm anterolisthesis of L4 on L5 and 4-6 mm retrolisthesis of L1 on L2, L2 on L3 and L3 on L4. Degenerative endplate changes and bilateral facet arthrosis throughout lumbar spine is seen. No vertebral body compression fractures. No suspicious bony lesions. Soft tissues: Overlying bowel gas pattern is normal. No suspicious soft tissue calcifications. IMPRESSION: Grade 1 spondylolisthesis throughout lumbar spine as described above. No acute compression fracture. Degenerative disc disease throughout lumbar spine. Dictated by: Temo Crowley M.D. on 07/10/2021 at 11:50 Approved by: Temo Crowley M.D. on 07/10/2021 at 11:51
== END ==
PROVIDERS: PCP Family Medicine; Referring Provider Family Medicine; Visit Provider Family Medicine
DX: M25.559 Pain in unspecified hip (principal); M43.16 Spondylolisthesis, lumbar region; M16.0 Bilateral primary osteoarthritis of hip
CPT/HCPCS: 72100; 73502

== ENCOUNTER → 2021-09-26 11:17 | Outpatient (CLI) | payer MEDICARE, OTHER, SELFPAY ==
--- NOTE | 2021-09-26 | DI.MG.S_ITS ---
BILATERAL DIGITAL SCREENING MAMMOGRAM 3D/2D WITH CAD: 09/26/2021 CLINICAL: Routine screening. Family history of breast cancer. Comparison is made to exams dated: 02/06/2019 mammogram, 12/26/2017 mammogram, and 04/11/2016 mammogram - [facility]. The tissue of both breasts is heterogeneously dense. This may lower the sensitivity of mammography. Current study was also evaluated with a Computer Aided Detection (CAD) system. No significant masses, calcifications, or other findings are seen in either breast. There has been no significant interval change. IMPRESSION: NEGATIVE There is no mammographic evidence of malignancy. A 1 year screening mammogram is recommended. Based on the Tyrer Cuzick model (a risk assessment model) the patient's lifetime risk is 6.9% and her 10 year risk is 3.4%. According to the ACR, ACS, and NCCN guidelines, an annual breast MRI exam along with mammogram is recommended if the patient's lifetime risk is 20% or greater. This exam was interpreted at Station ID: [id number]. NOTE: For mammograms, a report in lay terms will be sent to the patient. Approximately 15% of breast malignancies will not be visualized mammographically. In the management of a palpable breast mass, a negative mammogram must not discourage biopsy of a clinically suspicious lesion. Electronically Signed By: Terrance Valverde M.D., jr/heather:09/26/2021 15:12:26 letter sent: Normal Exam ACR BI-RADS Category 1: Negative [id number]
== END ==
PROVIDERS: Family Provider Family Medicine; PCP Family Medicine; Referring Provider Family Medicine; Visit Provider Family Medicine
DX: Z12.31 Encounter for screening mammogram for malignant neoplasm of breast (principal); Z80.3 Family history of malignant neoplasm of breast
CPT/HCPCS: 77063; 77067

== ENCOUNTER 2021-11-01 09:45 | Outpatient (RCR) | payer MEDICARE, OTHER, SELFPAY ==
--- NOTE | 2021-08-28 19:45 | PT.OIE ---
Current Diagnoses Pain in right hip (08/28/21) Dorsalgia, unspecified (08/28/21) Muscle weakness (generalized) (08/28/21) Past Medical History (Last Reviewed 07/18/20 @ 09:33 by Brittani Peterson DO) Antiphospholipid antibody syndrome Deep vein thrombosis Depression Psoriasis Ulcerative colitis Past Surgical History (Last Reviewed 07/18/20 @ 09:33 by Brittani Peterson DO) S/P total abdominal hysterectomy and bilateral salpingo-oophorectomy Visit Care Team Role Provider Type Terrance Barrientos MD Attending Provider Physician Family Provider Primary Care Provider Referring Provider Specialty: Family Practice Address: [address] [place] [address] Email: [email or web address] Physical Therapy Initial Evaluation PT-OP-A Visit Information Start: 08/23/21 17:58 Freq: Status: Active Protocol: Document 08/28/21 09:52 LRN (Rec: 08/28/21 12:46 LRN [id number]) Out-Patient Physical Therapy Visit Information Visit Information Visit Type Initial Evaluation Visit Start Time 09:52 Visit Stop Time 10:41 Total Visit Minutes 49 Visit Number 1 Evaluation Information Evaluation Date 08/28/21 Precautions Precautions Per intake form and pt: Osteoarthritis of R Hip, fingers & L toe (pre-surgery showed arthritis); DVT and 2 clots to R kidney and liver, and mild heart attack - in early 50's that pt attributes to being in bed a lot due sickness from Ulcerative colitis. 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 L TMJ dysfunction-couldn't open mouth x 1 (resolved on own) - 2 months ago. PT-OP-B Current Condition Start: 08/23/21 17:58 Freq: Status: Active Protocol: Document 08/28/21 09:52 LRN (Rec: 08/28/21 12:46 LRN [id number]) Current Condition History of Current Condition Onset Date R Hip pain 1 yr ago, Back pain ~ 6 months ago Current Complaints Deep R lateral hip pain, R LB/ SIJ pain History of Current Condition Started with R hip pain of insidious onset, recent x-rays showing arthritis. R low low back started to hurt because walking different. R Hip pain throbs, deep, Going up stairs painful, not painful descending, but fearful of falling. Denies falls on stairs. 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 Physical therapy for L hip 2017 for bursitis in [facility]. Had cortisone injections (2 in [place], 1 at [facility]), 3rd injection calmed the hip pain down to nothing, wouldn't even call it pain. Future Testing and Treatments Planned None. Developmental History Developmental History Mother of 2 children of vaginal births. Last difficulties due to bladder infections. 2 surgerical scars from hip to hip across abdomen due to 1) bladder lift at age 28-29, and 2) hyste age 40. Treatment Goals Patient/Caregiver Goals Pt goal with therapy: Walk daily to [facility] and back easily and without limp, Not have pain at night because hurting and disturbing sleep. Prior Functional Status Baseline Function- ADL's Independent Baseline Function- Mobility Independent Baseline Function- Work/School Walked 1-3 miles in neighborhoods/[place]. Baseline Function- Other No pain in R hip or R SIJ/LB previously. Current Functional Impairments (Reported) Functional Limitations- ADL's Interfers with sleeping, getting in/out of tub to shower (move slow and hangs onto sides), limited in bending over,. Balance has changed can't get in/out of tub without hanging onto sometihng. Denies difficulty with transfer up/down from commode. Functional Limitations- Mobility/Gait Interfers with walking, not able to walk to [facility] and back. Difficulty ascending stairs ( no difficulty descending stairs) Limps/Hobbles after prolonged sitting also after weeding. Personal Factors Other Personal Factors That May Effect OA R hip, Dx per pt of blood Therapy/Recovery clotting disorder. PT-OP-C Subjective Start: 08/23/21 17:58 Freq: Status: Active Protocol: Document 08/28/21 09:52 LRN (Rec: 08/28/21 12:46 LRN [id number]) Patient Questionnaires Lower Extremity Functional Scale LEFS Score 50 LEFS Impairment 20 to 39% Impaired (Score 48- 62) Oswestry Low Back Index Oswestry Score 18 Oswestry Impairment 1 to 19% Impaired (Score 1-19) OP-PT Pain Assessment Pain Assessment Grid Paper Pain Assessment Grid Completed Yes Location Hip Pain Location Details R hip Intensity 7 Description Radiating,Throbbing Frequency Intermittent Pain Duration Wakes at nihgt, not hurting going to bed Radiating Location Down into R leg to just beyond knee Pain Aggravating Factors Activity,Walking Other Pain Aggravating Factors NIghttime, any position Pain Alleviating Factors Cold,Medication Other Pain Alleviating Factors Tylenol to tolerate walking, ice to LB Low Back Pain Location Details R LB at SIJ Intensity 4 Scale Used Numeric (0 - 10) Frequency Intermittent Pain Aggravating Factors Walking Other Pain Aggravating Factors Sit to stand, turning over in bed and wakes up Pain Alleviating Factors Cold,Medication Other Pain Alleviating Factors Medication for R hip. PT-OP-J Posture/Palpation/Skin Start: 08/23/21 17:58 Freq: Status: Active Protocol: Document 08/28/21 09:52 LRN (Rec: 08/28/21 12:46 LRN [id number]) Posture Evaluation Position Standing Head/C-Spine Posture Forward Head L-Spine Posture Increased Lordosis,Shifted Left Shoulder Posture (R) Elevated Pelvis Posture Anteriorly Tilted,(R) Iliac Crest Superior Weight Distribution Weight Shifted Left Knee Posture (R) Excess Flexion Comments Posture Comments C-curve L/S with apex on left. Palpation Assessment Location R thigh Palpation Location R IT band Palpation Findings Tenderness LB Palpation Location R QL & R SIJ region Palpation Findings Muscle Guarding,Tenderness Palpation Details Sacrum in R rot. Paraspinals Palpation Location L Paraspinals of thoracic & lumbar region Palpation Findings Soft Tissue Tightness,Muscle Guarding PT-OP-K Range of Motion Start: 08/23/21 17:58 Freq: Status: Active Protocol: Document 08/28/21 09:52 LRN (Rec: 08/28/21 12:46 LRN [id number]) Lumbar Spine Range of Motion Lumbar Spine Active Degrees Testing Position Standing Flexion 40 Extension 12 Rotation Left 10 Rotation Right 5 Lateral Flexion Left 3 Lateral Flexion Right 5 ROM Limitations Pain Comments Trunk flexion is 40 deg's with hip flexion 25 deg's (true trunk flex is 15 deg's). Trunk extension is 12 deg's with hip ext 0 deg's (true trunk ext is 12 deg's). Hip Goniometric Range of Motion Hip Right Passive Hip ROM WFL No Testing Position Supine Straight Leg Raise 75 Abduction 40 Internal Rotation 20 External Rotation 70 Left Passive Testing Position Supine Straight Leg Raise 80 Abduction 40 Internal Rotation 25 External Rotation 75 PT-OP-L Special Tests Start: 08/23/21 17:58 Freq: Status: Active Protocol: Document 08/28/21 09:52 LRN (Rec: 08/28/21 12:46 LRN [id number]) Special Tests Lumbar Spine Special Tests Straight Leg Raise Test Results - bilaterally Comments 75 R, 80 L Compression Test Results neg Comments No increase pain, pt losses stability in L/S extension direction Standing Flexion Test Results neg Comments No change in R LBP Slump Test Results R LE: neg Comments No change in R LBP Hip Special Tests [place] Resisted Hip Flexion Test Results R hip: Positive Comments Pain Log Roll Test Test Results neg Comments No change in pain WILLIAMS Test Results R hip: Positive Comments Pain deep in R hip joint. PT-OP-M Strength Start: 08/23/21 17:58 Freq: Status: Active Protocol: Document 08/28/21 09:52 LRN (Rec: 08/28/21 12:46 LRN [id number]) Trunk Strength Trunk Manual Muscle Testing Core Stabilization Loss of core stability with R LE mvmt. Hip Strength Hip Manual Muscle Testing Right Flexion (L2) 5 Normal External Rotation 5 Normal Internal Rotation 3- Fair- Left Flexion (L2) 4 Good External Rotation 3+ Fair+ Internal Rotation 3- Fair- PT-OP-Q Treatments Start: 08/23/21 17:58 Freq: Status: Active Protocol: Document 08/28/21 09:52 LRN (Rec: 08/28/21 12:46 LRN [id number]) Self-Care/Home Management Treatment Education Patient Education Home Exercise Program Other Education Discussed results of evaluation, goals, and plan of care (POC). Pt agreeable to goals and POC. Activities Self-Care/Home Management Activities I/S pt in HEP: DKTC and rotation (LTR) stretch, Equal weightbearing (WBing) through Iscial Tubs in sitting and equal WBing in LE's in standing. PT-OP-T Assessment and Plan Start: 08/23/21 17:58 Freq: Status: Active Protocol: Document 08/28/21 09:52 LRN (Rec: 08/28/21 12:46 LRN [id number]) Physical Therapy Assessment Rehab Potential Rehabilitation Potential Good Evaluation Complexity Number of Personal Factors/Comorbidities 1-2 Number of Body Systems Impaired 4 or More Clinical Presentation at Evaluation Evolving Impairments Impairments Gait,Pain,Posture,ROM,Strength Goals Four Impairment Decreased function. Impairment Function limited due to pain: LEFS score 50 (20-39% impaired, score 48-62) JOHN: = 18/100 (1-19% impaired, score 1-19). Prison Goal (LTG) Improve function per LEFS score > 62 (1-19% impaired, score 63-79), or JOHN score 10 or less. LTG Duration 11/25/21 Three Impairment Decreased ambulatory ability due to R hip pain. Impairment Antalgic gait. Not able to walk for exercise due to R hip pain. Short Term Goal (STG) Pt will be able to tolerate walking [place]/[address] [place] back prior to onset of pain causing antalgic gait. STG Duration 10/12/21 Prison Goal (LTG) Walk daily to [place] and back easily and without limp, LTG Duration 11/25/21 Two Impairment R hip pain (6-7) & R LBP (3 -/) Impairment Diffculty sleeping due to R hip and R low back pain. Short Term Goal (STG) Pt will be educated in best positions for nighttime sleep to minimize R hip/R LB pain. STG Duration 08/31/21 Pen And Pencil Repairer Goal (LTG) Pt will be able to sleep at night in a comfortable position without disturbing sleep due to pain. LTG Duration 11/25/21 One Impairment Lacks appropriate HEP Short Term Goal (STG) Pt will be educated in proper standing posture to minimize LB strain. STG Duration 09/14/21 Pen And Pencil Repairer Goal (LTG) Pt will be independent with a self care HEP to manage her R hip/LBP. LTG Duration 11/25/21 Assessment Summary Assessment Pt presents with R hip pain that is mechanical in nature, probably due to degeneration at the R hip and lateral hip pain due to dysfunctional gait mechanics. Pt has decreased R passive hip mobility, primarily with IR (~5 deg's less than L side). Trunk mobility is very limited due to back pain. She also presents with + provacation tests for R SIJ dysfunction and soft tissue dysfunction of her R low back, most notably at her R Quadratus Lumorum. Mechanically X-ray report indicates DDD of the lower lumbar spine that may be causeing some of her increased R LB/hip pain with gait. At this time neural tests for the lumbar spine are negative. 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 Iontophoresis may be helpful with this pateint; therefore if you feel it would be appropriate for this patient please sign the POC. Please contact me if you have any questions or concerns using this modality. The pt will benefit from skilled physical therapy to achieve the above stated goals. Physical Therapy Plan Frequency and Duration Frequency of Treatment 2x/Week Plan of Care Start Date 08/28/21 Plan of Care End Date 11/25/21 Therapeutic Interventions Therapeutic Interventions Aquatic Therapy,Gait Training, Home Exercise Program,Joint Mobilizations,Manual Therapy, Neuromuscular Re-education, Patient/Caregiver Education, Self-Care/Home Management,Soft Tissue Mobilization,Taping, Therapeutic Exercises Modalities Cold Pack/Ice Massage,Hot Packs Other Therapeutic Interventions Iontophoresis with 4mg/ml Dexamethasone with Sodium Phosphate. Next Visit Focus/Plan Next Note Type Treatment Note Next Visit Plan HEP: trunk flex/R rot, L SB), Piriformis stretch (jimmie), Hamstring/neural stretch (R>L) , Core stab, Check Leg length/SIJ positioning & R IT Band. Check Provocation Tests: R hip Scour & Piriformis. Assess hip strength, (AB/AD/ ext), hip ext mobility ( iliopsoas); sacral balance. POC: Improve trunk mobility ( flex, R rot, L SB); posture and transfer training; manual therapy (balance pelvis, scar mob, R Ilipsoas & QL release, K-tape at R hip and R QL & abdomen; Core Stabilization; Gait training.
--- NOTE | 2021-08-28 19:46 | PT.OPPOC ---
Physical, Occupational & Speech Therapy At [facility] Current Diagnoses Pain in right hip (08/28/21) Dorsalgia, unspecified (08/28/21) Muscle weakness (generalized) (08/28/21) Visit Care Team Role Provider Type Terrance Barrientos MD Attending Provider Physician Family Provider Primary Care Provider Referring Provider Specialty: Family Practice Address: [address] [place] [address], [facility] Email: [email or web address] Plan Of Care PT-OP-T Assessment and Plan Start: 08/23/21 17:58 Freq: Status: Active Protocol: Document 08/28/21 09:52 LRN (Rec: 08/28/21 12:46 LRN [id number]) Physical Therapy Assessment Rehab Potential Rehabilitation Potential Good Evaluation Complexity Number of Personal Factors/Comorbidities 1-2 Number of Body Systems Impaired 4 or More Clinical Presentation at Evaluation Evolving Impairments Impairments Gait,Pain,Posture,ROM,Strength Goals Four Impairment Decreased function. Impairment Function limited due to pain: LEFS score 50 (20-39% impaired, score 48-62) JOHN: 9/50 = 18/100 (1-19% impaired, score 1-19). Underwriting Support Specialist Goal (LTG) Improve function per LEFS score > 62 (1-19% impaired, score 63-79), or JOHN score 10 or less. LTG Duration 11/25/21 Three Impairment Decreased ambulatory ability due to R hip pain. Impairment Antalgic gait. Not able to walk for exercise due to R hip pain. Short Term Goal (STG) Pt will be able to tolerate walking 1/[address] to [place] and back prior to onset of pain causing antalgic gait. STG Duration 10/12/21 [facility] Goal (LTG) Walk daily to [place] park and back easily and without limp, LTG Duration 11/25/21 Two Impairment R hip pain (6-7) & R LBP (3 -05/27) Impairment Diffculty sleeping due to R hip and R low back pain. Short Term Goal (STG) Pt will be educated in best positions for nighttime sleep to minimize R hip/R LB pain. STG Duration 08/31/21 Underwriting Support Specialist Goal (LTG) Pt will be able to sleep at night in a comfortable position without disturbing sleep due to pain. LTG Duration 11/25/21 One Impairment Lacks appropriate HEP Short Term Goal (STG) Pt will be educated in proper standing posture to minimize LB strain. STG Duration 09/14/21 [facility] Goal (LTG) Pt will be independent with a self care HEP to manage her R hip/LBP. LTG Duration 11/25/21 Assessment Summary Assessment Pt presents with R hip pain that is mechanical in nature, probably due to degeneration at the R hip and lateral hip pain due to dysfunctional gait mechanics. Pt has decreased R passive hip mobility, primarily with IR (~5 deg's less than L side). Trunk mobility is very limited due to back pain. She also presents with + provacation tests for R SIJ dysfunction and soft tissue dysfunction of her R low back, most notably at her R Quadratus Lumorum. Mechanically X-ray report indicates DDD of the lower lumbar spine that may be causeing some of her increased R LB/hip pain with gait. At this time neural tests for the lumbar spine are negative. 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 Iontophoresis may be helpful with this pateint; therefore if you feel it would be appropriate for this patient please sign the POC. Please contact me if you have any questions or concerns using this modality. The pt will benefit from skilled physical therapy to achieve the above stated goals. Physical Therapy Plan Frequency and Duration Frequency of Treatment 2x/Week Plan of Care Start Date 08/28/21 Plan of Care End Date 11/25/21 Therapeutic Interventions Therapeutic Interventions Aquatic Therapy,Gait Training, Home Exercise Program,Joint Mobilizations,Manual Therapy, Neuromuscular Re-education, Patient/Caregiver Education, Self-Care/Home Management,Soft Tissue Mobilization,Taping, Therapeutic Exercises Modalities Cold Pack/Ice Massage,Hot Packs Other Therapeutic Interventions Iontophoresis with 4mg/ml Dexamethasone with Sodium Phosphate. Next Visit Focus/Plan Next Note Type Treatment Note Next Visit Plan HEP: trunk flex/R rot, L SB), Piriformis stretch (jimmie), Hamstring/neural stretch (R>L) , Core stab, Check Leg length/SIJ positioning & R IT Band. Check Provocation Tests: R hip Scour & Piriformis. Assess hip strength, (AB/AD/ ext), hip ext mobility ( iliopsoas); sacral balance. POC: Improve trunk mobility ( flex, R rot, L SB); posture and transfer training; manual therapy (balance pelvis, scar mob, R Ilipsoas & QL release, K-tape at R hip and R QL & abdomen; Core Stabilization; Gait training. Plan of Care Dates Plan of Care Start Date 08/28/21 Plan of Care End Date 11/25/21 Electronically Signed by: Kamala Parnell, PT 08/28/21 1946 If you are in agreement with this Plan of Care, please return a signed and dated copy. I have reviewed this Plan of Care and certify that the skilled therapy services above are required to meet the patient?s needs. Physician Signature Date Printed Name and Credentials Clinical Instructor Signature Printed Name and Credentials
--- NOTE | 2021-08-31 17:27 | PT.OTN ---
Current Diagnoses Pain in right hip (08/31/21) Dorsalgia, unspecified (08/31/21) Muscle weakness (generalized) (08/31/21) Physical Therapy Treatment Note PT-OP-A Visit Information Start: 08/23/21 17:58 Freq: Status: Active Protocol: Document 08/31/21 09:57 LRN (Rec: 08/31/21 10:41 LRN [id number]) Out-Patient Physical Therapy Visit Information Visit Information Visit Type Treatment Note Visit Start Time 09:58 Visit Stop Time 10:39 Total Visit Minutes 41 Visit Number 2 PT-OP-B Current Condition Start: 08/23/21 17:58 Freq: Status: Active Protocol: Document 08/28/21 09:52 LRN (Rec: 08/28/21 12:46 LRN [id number]) Current Condition History of Current Condition Onset Date R Hip pain 1 yr ago, Back pain ~ 6 months ago Current Complaints Deep R lateral hip pain, R LB/ SIJ pain History of Current Condition Started with R hip pain of insidious onset, recent x-rays showing arthritis. R low low back started to hurt because walking different. R Hip pain throbs, deep, Going up stairs painful, not painful descending, but fearful of falling. Denies falls on stairs. 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 Physical therapy for L hip 2017 for bursitis in [facility]. Had cortisone injections (2 in [place], 1 at [facility]), 3rd injection calmed the hip pain down to nothing, wouldn't even call it pain. Future Testing and Treatments Planned None. Developmental History Developmental History Mother of 2 children of vaginal births. Last difficulties due to bladder infections. 2 surgerical scars from hip to hip across abdomen due to 1) bladder lift at age 28-29, and 2) hyste age 40. Treatment Goals Patient/Caregiver Goals Pt goal with therapy: Walk daily to [place] park and back easily and without limp, Not have pain at night because hurting and disturbing sleep. Prior Functional Status Baseline Function- ADL's Independent Baseline Function- Mobility Independent Baseline Function- Work/School Walked 1-3 miles in neighborhoods/[place]. Baseline Function- Other No pain in R hip or R SIJ/LB previously. Current Functional Impairments (Reported) Functional Limitations- ADL's Interfers with sleeping, getting in/out of tub to shower (move slow and hangs onto sides), limited in bending over,. Balance has changed can't get in/out of tub without hanging onto sometihng. Denies difficulty with transfer up/down from commode. Functional Limitations- Mobility/Gait Interfers with walking, not able to walk to [place] park and back. Difficulty ascending stairs ( no difficulty descending stairs) Limps/Hobbles after prolonged sitting also after weeding. Personal Factors Other Personal Factors That May Effect OA R hip, Dx per pt of blood Therapy/Recovery clotting disorder. PT-OP-C Subjective Start: 08/23/21 17:58 Freq: Status: Active Protocol: Document 08/31/21 09:57 LRN (Rec: 08/31/21 10:41 LRN [id number]) OP-PT Subjective Patient Comments Patient Comments R Hip bothers her most when driving, moving the R LE into the car is very painful. Getting in on passenger side is not painful. Moderate pain in R hip. PT-OP-J Posture/Palpation/Skin Start: 08/23/21 17:58 Freq: Status: Active Protocol: Document 08/31/21 09:57 LRN (Rec: 08/31/21 10:41 LRN [id number]) Palpation Assessment Location Leg length Palpation Location Ankles Palpation Details Supine L leg long > Long sit R leg long. PT-OP-K Range of Motion Start: 08/23/21 17:58 Freq: Status: Active Protocol: Document 08/28/21 09:52 LRN (Rec: 08/28/21 12:46 LRN [id number]) Lumbar Spine Range of Motion Lumbar Spine Active Degrees Testing Position Standing Flexion 40 Extension 12 Rotation Left 10 Rotation Right 5 Lateral Flexion Left 3 Lateral Flexion Right 5 ROM Limitations Pain Comments Trunk flexion is 40 deg's with hip flexion 25 deg's (true trunk flex is 15 deg's). Trunk extension is 12 deg's with hip ext 0 deg's (true trunk ext is 12 deg's). Hip Goniometric Range of Motion Hip Right Passive Hip ROM WFL No Testing Position Supine Straight Leg Raise 75 Abduction 40 Internal Rotation 20 External Rotation 70 Left Passive Testing Position Supine Straight Leg Raise 80 Abduction 40 Internal Rotation 25 External Rotation 75 PT-OP-L Special Tests Start: 08/23/21 17:58 Freq: Status: Active Protocol: Document 08/28/21 09:52 LRN (Rec: 08/28/21 12:46 LRN [id number]) Special Tests Lumbar Spine Special Tests Straight Leg Raise Test Results - bilaterally Comments 75 R, 80 L Compression Test Results neg Comments No increase pain, pt losses stability in L/S extension direction Standing Flexion Test Results neg Comments No change in R LBP Slump Test Results R LE: neg Comments No change in R LBP Hip Special Tests [facility] Resisted Hip Flexion Test Results R hip: Positive Comments Pain Log Roll Test Test Results neg Comments No change in pain WILLIAMS Test Results R hip: Positive Comments Pain deep in R hip joint. PT-OP-M Strength Start: 08/23/21 17:58 Freq: Status: Active Protocol: Document 08/28/21 09:52 LRN (Rec: 08/28/21 12:46 LRN [id number]) Trunk Strength Trunk Manual Muscle Testing Core Stabilization Loss of core stability with R LE mvmt. Hip Strength Hip Manual Muscle Testing Right Flexion (L2) 5 Normal External Rotation 5 Normal Internal Rotation 3- Fair- Left Flexion (L2) 4 Good External Rotation 3+ Fair+ Internal Rotation 3- Fair- PT-OP-Q Treatments Start: 08/23/21 17:58 Freq: Status: Active Protocol: Document 08/31/21 09:57 LRN (Rec: 08/31/21 10:41 LRN [id number]) Therapeutic Exercises Supine Exercises Transfer training Supine Exercise Name In/out of car, up/down chair, picking up purse, rolling over , supine<>sit. Comments Much cuing needed for equal WBing & for understanding of core stab w/mvmts TA tightening Supine Exercise Name Training to tighten and to hold. Use of haha, cough, and with transfers Comments Pt able to TA tight best with cue of Cough. Manual Therapy Treatment Soft Tissue Mobilization Balancing of sacrum Body Location Sacrum, Ischial Tuberosity's. Mobilization Type Myofascial Release,Sustained Pressure Intensity/Depth Moderate Body Position Prone Comments Correction obtained. Pt had no pain unless lifting R LE Joint Mobilizations L innominate Joint L SIJ Direction Correcting schedule checker rot/inflare Body Position Supine R innominate Joint R SIJ Direction Correcting an anterior rot Body Position Supine PT-OP-T Assessment and Plan Start: 08/23/21 17:58 Freq: Status: Active Protocol: Document 08/31/21 09:57 LRN (Rec: 08/31/21 10:41 LRN [id number]) Physical Therapy Assessment Goals Four Impairment Decreased function. Impairment Function limited due to pain: LEFS score 50 (20-39% impaired, score 48-62) JOHN: 9/50 = 18/100 (1-19% impaired, score 1-19). [facility] Goal (LTG) Improve function per LEFS score > 62 (1-19% impaired, score 63-79), or JOHN score 10 or less. LTG Duration 11/25/21 Three Impairment Decreased ambulatory ability due to R hip pain. Impairment Antalgic gait. Not able to walk for exercise due to R hip pain. Short Term Goal (STG) Pt will be able to tolerate walking 1/[address] to [place] park and back prior to onset of pain causing antalgic gait. STG Duration 10/12/21 [facility] Goal (LTG) Walk daily to [place] park and back easily and without limp, LTG Duration 11/25/21 Two Impairment R hip pain (6-7/10) & R LBP (3 -4/10) Impairment Diffculty sleeping due to R hip and R low back pain. Short Term Goal (STG) Pt will be educated in best positions for nighttime sleep to minimize R hip/R LB pain. STG Duration 08/31/21 [facility] Goal (LTG) Pt will be able to sleep at night in a comfortable position without disturbing sleep due to pain. LTG Duration 11/25/21 One Impairment Lacks appropriate HEP Short Term Goal (STG) Pt will be educated in proper standing posture to minimize LB strain. STG Duration 09/14/21 Med Specialist Goal (LTG) Pt will be independent with a self care HEP to manage her R hip/LBP. (08/31/21: I/S pt in TA tightening for core stability) LTG Duration 11/25/21 (08/31/21: Progressed) Assessment Summary Assessment Pt has poor ability to contract TA; therefore much training needed. Pt requires phys and verbal cuing throughout treatment. Pt had + response to Sacral balancing with change in pain at the start to discomfort of R hip. Pt pain does not appear to be joint related with - Scour test of R hip. Physical Therapy Plan Frequency and Duration Frequency of Treatment 2x/Week Plan of Care Start Date 08/28/21 Plan of Care End Date 11/25/21 Next Visit Focus/Plan Next Note Type Treatment Note Next Visit Plan Assess response to treatment and further sacral balance if needed. Educate pt in best sleeping positions to decrease R hip/ LBP (STG #2). Review Core stab TA tightening. HEP: trunk flex/R rot, L SB), Piriformis stretch (jimmie), Hamstring/neural stretch (R>L) . Check R IT Band. Check Provocation Tests: R Piriformis. Assess hip strength, (AB/AD/ ext), hip ext mobility ( iliopsoas). POC: Improve trunk mobility ( flex, R rot, L SB); posture and painfree transfers; manual therapy (balance pelvis, scar mob, R Ilipsoas & QL release, K-tape at R hip and R QL & abdomen; Core Stabilization; Gait training.
--- NOTE | 2021-09-04 17:17 | PT.OTN ---
Current Diagnoses Pain in right hip (09/04/21) Dorsalgia, unspecified (09/04/21) Muscle weakness (generalized) (09/04/21) Physical Therapy Treatment Note PT-OP-A Visit Information Start: 08/23/21 17:58 Freq: Status: Active Protocol: Document 09/04/21 10:33 LRN (Rec: 09/04/21 11:18 LRN [id number]) Out-Patient Physical Therapy Visit Information Visit Information Visit Type Treatment Note Visit Start Time 10:33 Visit Stop Time 11:13 Total Visit Minutes 40 Visit Number 3 Evaluation Information Evaluation Date 08/28/21 Precautions Precautions Per intake form and pt: Osteoarthritis of R Hip, fingers & L toe (pre-surgery showed arthritis); DVT and 2 clots to R kidney and liver, and mild heart attack - in early 50's that pt attributes to being in bed a lot due sickness from Ulcerative colitis. 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 L TMJ dysfunction-couldn't open mouth x 1 (resolved on own) - 2 months ago. PT-OP-B Current Condition Start: 08/23/21 17:58 Freq: Status: Active Protocol: Document 08/28/21 09:52 LRN (Rec: 08/28/21 12:46 LRN [id number]) Current Condition History of Current Condition Onset Date R Hip pain 1 yr ago, Back pain ~ 6 months ago Current Complaints Deep R lateral hip pain, R LB/ SIJ pain History of Current Condition Started with R hip pain of insidious onset, recent x-rays showing arthritis. R low low back started to hurt because walking different. R Hip pain throbs, deep, Going up stairs painful, not painful descending, but fearful of falling. Denies falls on stairs. 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 Physical therapy for L hip 2017 for bursitis in [facility]. Had cortisone injections (2 in [place], 1 at [facility]), 3rd injection calmed the hip pain down to nothing, wouldn't even call it pain. Future Testing and Treatments Planned None. Developmental History Developmental History Mother of 2 children of vaginal births. Last difficulties due to bladder infections. 2 surgerical scars from hip to hip across abdomen due to 1) bladder lift at age 28-29, and 2) hyste age 40. Treatment Goals Patient/Caregiver Goals Pt goal with therapy: Walk daily to [place] park and back easily and without limp, Not have pain at night because hurting and disturbing sleep. Prior Functional Status Baseline Function- ADL's Independent Baseline Function- Mobility Independent Baseline Function- Work/School Walked 1-3 miles in neighborhoods/[place]. Baseline Function- Other No pain in R hip or R SIJ/LB previously. Current Functional Impairments (Reported) Functional Limitations- ADL's Interfers with sleeping, getting in/out of tub to shower (move slow and hangs onto sides), limited in bending over,. Balance has changed can't get in/out of tub without hanging onto sometihng. Denies difficulty with transfer up/down from commode. Functional Limitations- Mobility/Gait Interfers with walking, not able to walk to [place] park and back. Difficulty ascending stairs ( no difficulty descending stairs) Limps/Hobbles after prolonged sitting also after weeding. Personal Factors Other Personal Factors That May Effect OA R hip, Dx per pt of blood Therapy/Recovery clotting disorder. PT-OP-C Subjective Start: 08/23/21 17:58 Freq: Status: Active Protocol: Document 09/04/21 10:33 LRN (Rec: 09/04/21 11:18 LRN [id number]) OP-PT Subjective Patient Comments Patient Comments Feeling pretty good. Trying to get in/out of car as taught . Since last visit pain is not as intense in the R hip. Turning over in bed, doesn't hurt as much. PT-OP-J Posture/Palpation/Skin Start: 08/23/21 17:58 Freq: Status: Active Protocol: Document 08/31/21 09:57 LRN (Rec: 08/31/21 10:41 LRN [id number]) Palpation Assessment Location Leg length Palpation Location Ankles Palpation Details Supine L leg long > Long sit R leg long. PT-OP-K Range of Motion Start: 08/23/21 17:58 Freq: Status: Active Protocol: Document 08/28/21 09:52 LRN (Rec: 08/28/21 12:46 LRN [id number]) Lumbar Spine Range of Motion Lumbar Spine Active Degrees Testing Position Standing Flexion 40 Extension 12 Rotation Left 10 Rotation Right 5 Lateral Flexion Left 3 Lateral Flexion Right 5 ROM Limitations Pain Comments Trunk flexion is 40 deg's with hip flexion 25 deg's (true trunk flex is 15 deg's). Trunk extension is 12 deg's with hip ext 0 deg's (true trunk ext is 12 deg's). Hip Goniometric Range of Motion Hip Right Passive Hip ROM WFL No Testing Position Supine Straight Leg Raise 75 Abduction 40 Internal Rotation 20 External Rotation 70 Left Passive Testing Position Supine Straight Leg Raise 80 Abduction 40 Internal Rotation 25 External Rotation 75 PT-OP-L Special Tests Start: 08/23/21 17:58 Freq: Status: Active Protocol: Document 08/28/21 09:52 LRN (Rec: 08/28/21 12:46 LRN [id number]) Special Tests Lumbar Spine Special Tests Straight Leg Raise Test Results - bilaterally Comments 75 R, 80 L Compression Test Results neg Comments No increase pain, pt losses stability in L/S extension direction Standing Flexion Test Results neg Comments No change in R LBP Slump Test Results R LE: neg Comments No change in R LBP Hip Special Tests [facility] Resisted Hip Flexion Test Results R hip: Positive Comments Pain Log Roll Test Test Results neg Comments No change in pain WILLIAMS Test Results R hip: Positive Comments Pain deep in R hip joint. PT-OP-M Strength Start: 08/23/21 17:58 Freq: Status: Active Protocol: Document 08/28/21 09:52 LRN (Rec: 08/28/21 12:46 LRN [id number]) Trunk Strength Trunk Manual Muscle Testing Core Stabilization Loss of core stability with R LE mvmt. Hip Strength Hip Manual Muscle Testing Right Flexion (L2) 5 Normal External Rotation 5 Normal Internal Rotation 3- Fair- Left Flexion (L2) 4 Good External Rotation 3+ Fair+ Internal Rotation 3- Fair- PT-OP-Q Treatments Start: 08/23/21 17:58 Freq: Status: Active Protocol: Document 09/04/21 10:33 LRN (Rec: 09/04/21 11:18 LRN [id number]) Therapeutic Exercises Supine Exercises PPT Supine Exercise Name PPT w/Glut squeeze Reps/Minutes 10SH x 10 Comments Extra time for training. TA tightening Supine Exercise Name Training to tighten and to hold. Use of haha, cough, and with transfers Comments Pt able to TA tight best with cue of Cough. Sitting Exercises Trunk flex stretch Sitting Exercise Name Trunk FB to stretch R QL Reps/Minutes 4' Comments Extra time to determine max tolerated stretch and position Manual Therapy Treatment Soft Tissue Mobilization R IT Band Body Location R IT band mid and proximal to hip Mobilization Type Myofascial Release Intensity/Depth Superficial Body Position Prone R Trunk Body Location Fascial rot to R Mobilization Type Myofascial Release Intensity/Depth Superficial Body Position Prone Self-Care/Home Management Treatment Education Patient Education Posture Other Education Educated and practiced positioning for nighttime in sidelie bilaterally. Pillow under knee when in L sidelie. Discussed avoiding twisting of back and dropping forward of R knee. PT-OP-T Assessment and Plan Start: 08/23/21 17:58 Freq: Status: Active Protocol: Document 09/04/21 10:33 LRN (Rec: 09/04/21 11:18 LRN [id number]) Physical Therapy Assessment Goals Four Impairment Decreased function. Impairment Function limited due to pain: LEFS score 50 (20-39% impaired, score 48-62) JOHN: 9/50 = 18/100 (1-19% impaired, score 1-19). Director Of Database Marketing Goal (LTG) Improve function per LEFS score > 62 (1-19% impaired, score 63-79), or JOHN score 10 or less. LTG Duration 11/25/21 Three Impairment Decreased ambulatory ability due to R hip pain. Impairment Antalgic gait. Not able to walk for exercise due to R hip pain. Short Term Goal (STG) Pt will be able to tolerate walking 1/[address] to [place] park and back prior to onset of pain causing antalgic gait. STG Duration 10/12/21 Director Of Database Marketing Goal (LTG) Walk daily to [facility] and back easily and without limp, LTG Duration 11/25/21 Two Impairment R hip pain (6-7/10) & R LBP (3 -4/10) Impairment Diffculty sleeping due to R hip and R low back pain. Short Term Goal (STG) Pt will be educated in best positions for nighttime sleep to minimize R hip/R LB pain. STG Duration 08/31/21 (09/04/21; MET GOAL) Director Of Database Marketing Goal (LTG) Pt will be able to sleep at night in a comfortable position without disturbing sleep due to pain. LTG Duration 11/25/21 One Impairment Lacks appropriate HEP Short Term Goal (STG) Pt will be educated in proper standing posture to minimize LB strain. STG Duration 09/14/21 Intermediate Goal (LTG) Pt will be independent with a self care HEP to manage her R hip/LBP. (08/31/21: I/S pt in TA tightening for core stability) (09/04/21: I/S pt in trunk flex stretch in sitting) LTG Duration 11/25/21 (09/04/21: Progressed) Progress Towards Goals Progress Comments Progressed HEP. Less pain getting in/out of car. STG #2 MET. Assessment Summary Assessment Pt pelvis appears balanced. Still sore from mobilization. She had tightness of her trunk fascia in R rotation in prone. Cuing needed for TA stab, veronica at start of breathing and during breathing . Pt not able to contract TA during spontaneous laugh or cough. She is having less pain getting in/out of car when stabilizing core and moving legs together. Physical Therapy Plan Frequency and Duration Frequency of Treatment 2x/Week Plan of Care Start Date 08/28/21 Plan of Care End Date 11/25/21 Next Visit Focus/Plan Next Note Type Treatment Note Next Visit Plan Review I/S HEP: sitting trunk flex stretch and issue handout . HEP: trunk flex/R rot, L SB), Piriformis stretch (jimmie), Hamstring/neural stretch (R>L) . Check R IT Band. Check Provocation Tests: R Piriformis. Assess hip strength, (AB/AD/ ext), hip ext mobility ( iliopsoas). POC: Improve trunk mobility ( flex, R rot, L SB); posture and painfree transfers; manual therapy (scar mob, R Ilipsoas & QL release, K-tape at R hip and R QL & abdomen, balance pelvis as needed; Core Stabilization; Gait training.
--- NOTE | 2021-09-07 17:13 | PT.OTN ---
Current Diagnoses Pain in right hip (09/07/21) Dorsalgia, unspecified (09/07/21) Muscle weakness (generalized) (09/07/21) Physical Therapy Treatment Note PT-OP-A Visit Information Start: 08/23/21 17:58 Freq: Status: Active Protocol: Document 09/07/21 09:49 LRN (Rec: 09/07/21 10:33 LRN [id number]) Out-Patient Physical Therapy Visit Information Visit Information Visit Type Treatment Note Visit Start Time 09:49 Visit Stop Time 10:31 Total Visit Minutes 42 Visit Number 4 Evaluation Information Evaluation Date 08/28/21 Precautions Precautions Per intake form and pt: Osteoarthritis of R Hip, fingers & L toe (pre-surgery showed arthritis); DVT and 2 clots to R kidney and liver, and mild heart attack - in early 50's that pt attributes to being in bed a lot due sickness from Ulcerative colitis. 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 L TMJ dysfunction-couldn't open mouth x 1 (resolved on own) - 2 months ago. PT-OP-B Current Condition Start: 08/23/21 17:58 Freq: Status: Active Protocol: Document 08/28/21 09:52 LRN (Rec: 08/28/21 12:46 LRN [id number]) Current Condition History of Current Condition Onset Date R Hip pain 1 yr ago, Back pain ~ 6 months ago Current Complaints Deep R lateral hip pain, R LB/ SIJ pain History of Current Condition Started with R hip pain of insidious onset, recent x-rays showing arthritis. R low low back started to hurt because walking different. R Hip pain throbs, deep, Going up stairs painful, not painful descending, but fearful of falling. Denies falls on stairs. 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 Physical therapy for L hip 2017 for bursitis in [facility]. Had cortisone injections (2 in [place], [address] [facility]), 3rd injection calmed the hip pain down to nothing, wouldn't even call it pain. Future Testing and Treatments Planned None. Developmental History Developmental History Mother of 2 children of vaginal births. Last difficulties due to bladder infections. 2 surgerical scars from hip to hip across abdomen due to 1) bladder lift at age 28-29, and 2) hyste age 40. Treatment Goals Patient/Caregiver Goals Pt goal with therapy: Walk daily to [place] park and back easily and without limp, Not have pain at night because hurting and disturbing sleep. Prior Functional Status Baseline Function- ADL's Independent Baseline Function- Mobility Independent Baseline Function- Work/School Walked 1-3 miles in neighborhoods/[place]. Baseline Function- Other No pain in R hip or R SIJ/LB previously. Current Functional Impairments (Reported) Functional Limitations- ADL's Interfers with sleeping, getting in/out of tub to shower (move slow and hangs onto sides), limited in bending over,. Balance has changed can't get in/out of tub without hanging onto sometihng. Denies difficulty with transfer up/down from commode. Functional Limitations- Mobility/Gait Interfers with walking, not able to walk to [place] park and back. Difficulty ascending stairs ( no difficulty descending stairs) Limps/Hobbles after prolonged sitting also after weeding. Personal Factors Other Personal Factors That May Effect OA R hip, Dx per pt of blood Therapy/Recovery clotting disorder. PT-OP-C Subjective Start: 08/23/21 17:58 Freq: Status: Active Protocol: Document 09/07/21 09:49 LRN (Rec: 09/07/21 10:33 LRN [id number]) OP-PT Subjective Patient Comments Patient Comments Pain now a 3/10, nighttime 4-5 /10. States after the last session everything felt good ( able to amb stairs normal) until last night, woke several times due to R hip, back and lateral thigh. Tried using pillow btn legs but wasn't helpful. PT-OP-J Posture/Palpation/Skin Start: 08/23/21 17:58 Freq: Status: Active Protocol: Document 08/31/21 09:57 LRN (Rec: 08/31/21 10:41 LRN [id number]) Palpation Assessment Location Leg length Palpation Location Ankles Palpation Details Supine L leg long > Long sit R leg long. PT-OP-K Range of Motion Start: 08/23/21 17:58 Freq: Status: Active Protocol: Document 08/28/21 09:52 LRN (Rec: 08/28/21 12:46 LRN [id number]) Lumbar Spine Range of Motion Lumbar Spine Active Degrees Testing Position Standing Flexion 40 Extension 12 Rotation Left 10 Rotation Right 5 Lateral Flexion Left 3 Lateral Flexion Right 5 ROM Limitations Pain Comments Trunk flexion is 40 deg's with hip flexion 25 deg's (true trunk flex is 15 deg's). Trunk extension is 12 deg's with hip ext 0 deg's (true trunk ext is 12 deg's). Hip Goniometric Range of Motion Hip Right Passive Hip ROM WFL No Testing Position Supine Straight Leg Raise 75 Abduction 40 Internal Rotation 20 External Rotation 70 Left Passive Testing Position Supine Straight Leg Raise 80 Abduction 40 Internal Rotation 25 External Rotation 75 PT-OP-L Special Tests Start: 08/23/21 17:58 Freq: Status: Active Protocol: Document 08/28/21 09:52 LRN (Rec: 08/28/21 12:46 LRN [id number]) Special Tests Lumbar Spine Special Tests Straight Leg Raise Test Results - bilaterally Comments 75 R, 80 L Compression Test Results neg Comments No increase pain, pt losses stability in L/S extension direction Standing Flexion Test Results neg Comments No change in R LBP Slump Test Results R LE: neg Comments No change in R LBP Hip Special Tests [facility] Resisted Hip Flexion Test Results R hip: Positive Comments Pain Log Roll Test Test Results neg Comments No change in pain WILLIAMS Test Results R hip: Positive Comments Pain deep in R hip joint. PT-OP-M Strength Start: 08/23/21 17:58 Freq: Status: Active Protocol: Document 08/28/21 09:52 LRN (Rec: 08/28/21 12:46 LRN [id number]) Trunk Strength Trunk Manual Muscle Testing Core Stabilization Loss of core stability with R LE mvmt. Hip Strength Hip Manual Muscle Testing Right Flexion (L2) 5 Normal External Rotation 5 Normal Internal Rotation 3- Fair- Left Flexion (L2) 4 Good External Rotation 3+ Fair+ Internal Rotation 3- Fair- PT-OP-Q Treatments Start: 08/23/21 17:58 Freq: Status: Active Protocol: Document 09/07/21 09:49 LRN (Rec: 09/07/21 10:33 LRN [id number]) Manual Therapy Treatment Soft Tissue Mobilization R Trunk Body Location Fascial rot to R Mobilization Type Myofascial Release Intensity/Depth Superficial Body Position Prone Balancing of sacrum Body Location Sacrum, Ischial Tuberosity's. Mobilization Type Myofascial Release,Sustained Pressure Intensity/Depth Moderate Body Position Prone Comments Correction obtained. 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 Impairment Function limited due to pain: LEFS score 50 (20-39% impaired, score 48-62) JOHN: 9/50 = 18/100 (1-19% impaired, score 1-19). Penitentiary Goal (LTG) Improve function per LEFS score > 62 (1-19% impaired, score 63-79), or JOHN score 10 or less. LTG Duration 11/25/21 Three Impairment Decreased ambulatory ability due to R hip pain. Impairment Antalgic gait. Not able to walk for exercise due to R hip pain. Short Term Goal (STG) Pt will be able to tolerate walking 1/[address] to [facility] and back prior to onset of pain causing antalgic gait. STG Duration 10/12/21 Green Energy Marketing Analyst Goal (LTG) Walk daily to [facility] and back easily and without limp, LTG Duration 11/25/21 Two Impairment R hip pain (6-7/10) & R LBP (3 -4/10) Impairment Diffculty sleeping due to R hip and R low back pain. Short Term Goal (STG) Pt will be educated in best positions for nighttime sleep to minimize R hip/R LB pain. STG Duration 08/31/21 (09/04/21; MET GOAL) Penitentiary Goal (LTG) Pt will be able to sleep at night in a comfortable position without disturbing sleep due to pain. LTG Duration 11/25/21 One Impairment Lacks appropriate HEP Short Term Goal (STG) Pt will be educated in proper standing posture to minimize LB strain. STG Duration 09/14/21 Green Energy Marketing Analyst Goal (LTG) Pt will be independent with a self care HEP to manage her R hip/LBP. (08/31/21: I/S pt in TA tightening for core stability) (09/04/21: I/S pt in trunk flex stretch in sitting) LTG Duration 11/25/21 (09/04/21: Progressed) Assessment Summary Assessment DDD of L/S and arthritis in hips. Pt presents with pelvic obliquity that is not stabilized, possibly from daily activities. Pt has poor awareness of proper body mechanics. Correction of her R rotated sacrum and anterior rot innominate was not completed. Was not able to balance pelvis/sacrum. She has muscle guarding of her LB and sacrum is in flexion. Poor core stabilization. Pt needs to use cryotherapy more at home. Held review of sitting trunk flex stretch due to pt in flare up. Physical Therapy Plan Frequency and Duration Frequency of Treatment 2x/Week Plan of Care Start Date 08/28/21 Plan of Care End Date 11/25/21 Next Visit Focus/Plan Next Note Type Treatment Note Next Visit Plan Review I/S HEP: sitting trunk flex stretch and issue handout . HEP: trunk flex/R rot, L SB), Piriformis stretch (jimmie), Hamstring/neural stretch (R>L) . Check R IT Band. Check Provocation Tests: R Piriformis. Assess hip strength, (AB/AD/ ext), hip ext mobility ( iliopsoas). POC: Improve trunk mobility ( flex, R rot, L SB); posture and painfree transfers; manual therapy (scar mob, R Ilipsoas & QL release, K-tape at R hip and R QL & abdomen, balance pelvis as needed; Core Stabilization; Gait training.
--- NOTE | 2021-09-11 13:30 | PT.OTN ---
Current Diagnoses Pain in right hip (09/11/21) Dorsalgia, unspecified (09/11/21) Muscle weakness (generalized) (09/11/21) Physical Therapy Treatment Note PT-OP-A Visit Information Start: 08/23/21 17:58 Freq: Status: Active Protocol: Document 09/11/21 09:50 LRN (Rec: 09/11/21 10:35 LRN [id number]) Out-Patient Physical Therapy Visit Information Visit Information Visit Type Treatment Note Visit Start Time 09:50 Visit Stop Time 10:32 Total Visit Minutes 42 Visit Number 5 Evaluation Information Evaluation Date 08/28/21 Precautions Precautions Per intake form and pt: Osteoarthritis of R Hip, fingers & L toe (pre-surgery showed arthritis); DVT and 2 clots to R kidney and liver, and mild heart attack - in early 50's that pt attributes to being in bed a lot due sickness from Ulcerative colitis. 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 L TMJ dysfunction-couldn't open mouth x 1 (resolved on own) - 2 months ago. PT-OP-B Current Condition Start: 08/23/21 17:58 Freq: Status: Active Protocol: Document 08/28/21 09:52 LRN (Rec: 08/28/21 12:46 LRN [id number]) Current Condition History of Current Condition Onset Date R Hip pain 1 yr ago, Back pain ~ 6 months ago Current Complaints Deep R lateral hip pain, R LB/ SIJ pain History of Current Condition Started with R hip pain of insidious onset, recent x-rays showing arthritis. R low low back started to hurt because walking different. R Hip pain throbs, deep, Going up stairs painful, not painful descending, but fearful of falling. Denies falls on stairs. 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 Physical therapy for L hip 2017 for bursitis in [facility]. Had cortisone injections (2 in [place], 1 at [facility]), 3rd injection calmed the hip pain down to nothing, wouldn't even call it pain. Future Testing and Treatments Planned None. Developmental History Developmental History Mother of 2 children of vaginal births. Last difficulties due to bladder infections. 2 surgerical scars from hip to hip across abdomen due to 1) bladder lift at age 28-29, and 2) hyste age 40. Treatment Goals Patient/Caregiver Goals Pt goal with therapy: [place] and back easily and without limp, Not have pain at night because hurting and disturbing sleep. Prior Functional Status Baseline Function- ADL's Independent Baseline Function- Mobility Independent Baseline Function- Work/School Walked 1-3 miles in neighborhoods/[place]. Baseline Function- Other No pain in R hip or R SIJ/LB previously. Current Functional Impairments (Reported) Functional Limitations- ADL's Interfers with sleeping, getting in/out of tub to shower (move slow and hangs onto sides), limited in bending over,. Balance has changed can't get in/out of tub without hanging onto sometihng. Denies difficulty with transfer up/down from commode. Functional Limitations- Mobility/Gait Interfers with walking, not able to walk to [place] and back. Difficulty ascending stairs ( no difficulty descending stairs) Limps/Hobbles after prolonged sitting also after weeding. Personal Factors Other Personal Factors That May Effect OA R hip, Dx per pt of blood Therapy/Recovery clotting disorder. PT-OP-C Subjective Start: 08/23/21 17:58 Freq: Status: Active Protocol: Document 09/11/21 09:50 LRN (Rec: 09/11/21 10:35 LRN [id number]) OP-PT Subjective Patient Comments Patient Comments States she has had visitors and was climbing in and out of cars, and she is in a lot of pain in the R LB. Pain rated 5/10 PT-OP-J Posture/Palpation/Skin Start: 08/23/21 17:58 Freq: Status: Active Protocol: Document 08/31/21 09:57 LRN (Rec: 08/31/21 10:41 LRN [id number]) Palpation Assessment Location Leg length Palpation Location Ankles Palpation Details Supine L leg long > Long sit R leg long. PT-OP-K Range of Motion Start: 08/23/21 17:58 Freq: Status: Active Protocol: Document 08/28/21 09:52 LRN (Rec: 08/28/21 12:46 LRN [id number]) Lumbar Spine Range of Motion Lumbar Spine Active Degrees Testing Position Standing Flexion 40 Extension 12 Rotation Left 10 Rotation Right 5 Lateral Flexion Left 3 Lateral Flexion Right 5 ROM Limitations Pain Comments Trunk flexion is 40 deg's with hip flexion 25 deg's (true trunk flex is 15 deg's). Trunk extension is 12 deg's with hip ext 0 deg's (true trunk ext is 12 deg's). Hip Goniometric Range of Motion Hip Right Passive Hip ROM WFL No Testing Position Supine Straight Leg Raise 75 Abduction 40 Internal Rotation 20 External Rotation 70 Left Passive Testing Position Supine Straight Leg Raise 80 Abduction 40 Internal Rotation 25 External Rotation 75 PT-OP-L Special Tests Start: 08/23/21 17:58 Freq: Status: Active Protocol: Document 08/28/21 09:52 LRN (Rec: 08/28/21 12:46 LRN [id number]) Special Tests Lumbar Spine Special Tests Straight Leg Raise Test Results - bilaterally Comments 75 R, 80 L Compression Test Results neg Comments No increase pain, pt losses stability in L/S extension direction Standing Flexion Test Results neg Comments No change in R LBP Slump Test Results R LE: neg Comments No change in R LBP Hip Special Tests [facility] Resisted Hip Flexion Test Results R hip: Positive Comments Pain Log Roll Test Test Results neg Comments No change in pain WILLIAMS Test Results R hip: Positive Comments Pain deep in R hip joint. PT-OP-M Strength Start: 08/23/21 17:58 Freq: Status: Active Protocol: Document 08/28/21 09:52 LRN (Rec: 08/28/21 12:46 LRN [id number]) Trunk Strength Trunk Manual Muscle Testing Core Stabilization Loss of core stability with R LE mvmt. Hip Strength Hip Manual Muscle Testing Right Flexion (L2) 5 Normal External Rotation 5 Normal Internal Rotation 3- Fair- Left Flexion (L2) 4 Good External Rotation 3+ Fair+ Internal Rotation 3- Fair- PT-OP-Q Treatments Start: 08/23/21 17:58 Freq: Status: Active Protocol: Document 09/11/21 09:50 LRN (Rec: 09/11/21 10:35 LRN [id number]) Therapeutic Exercises Supine Exercises R KTC stretch Supine Exercise Name R KTC stretch Equipment Used Strap Comments Extra time to find max tolerated stretch PPT Supine Exercise Name PPT w/Glut squeeze Reps/Minutes 10SH x 10 Comments Extra time for training. TA tightening Supine Exercise Name Training to tighten and to hold. Use with transfers Comments Extra time for awareness of tightening L > R. Manual Therapy Treatment Soft Tissue Mobilization R Piriformis Body Location R Piriformis REILLY stretch Body Position Prone Comments pillow under chest Balancing of sacrum Body Location Sacrum, Ischial Tuberosity's. Mobilization Type Myofascial Release,Sustained Pressure Intensity/Depth Moderate Body Position Prone Comments Correction obtained. Pt had no pain unless lifting R LE Joint Mobilizations L innominate Joint L SIJ Direction Correcting outflare Body Position Supine R innominate Joint R SIJ Direction Correcting inflare Body Position Supine Self-Care/Home Management Treatment Education Patient Education Body Mechanics Other Education Transfer training sit<>supine onto R side of plinth. Activities Self-Care/Home Management Activities I/S pt in active hip ER/IR and stretch to hip ER (fig 4 sitting) and hip IR stretch ( knee to opp shldr in fig 4 position) prior to standing after prolonged sitting. PT-OP-T Assessment and Plan Start: 08/23/21 17:58 Freq: Status: Active Protocol: Document 09/11/21 09:50 LRN (Rec: 09/11/21 10:35 LRN [id number]) Physical Therapy Assessment Goals Four Impairment Decreased function. Impairment Function limited due to pain: LEFS score 50 (20-39% impaired, score 48-62) JOHN: 9/50 = 18/100 (1-19% impaired, score 1-19). Skilled Nursing Goal (LTG) Improve function per LEFS score > 62 (1-19% impaired, score 63-79), or JOHN score 10 or less. LTG Duration 11/25/21 Three Impairment Decreased ambulatory ability due to R hip pain. Impairment Antalgic gait. Not able to walk for exercise due to R hip pain. Short Term Goal (STG) Pt will be able to tolerate walking 1/[address] to [place] [employer] and back prior to onset of pain causing antalgic gait. STG Duration 10/12/21 Skilled Nursing Goal (LTG) Walk daily to [facility] and back easily and without limp, LTG Duration 11/25/21 Two Impairment R hip pain (6-7/10) & R LBP (3 -4/10) Impairment Diffculty sleeping due to R hip and R low back pain. Short Term Goal (STG) Pt will be educated in best positions for nighttime sleep to minimize R hip/R LB pain. STG Duration 08/31/21 (09/04/21; MET GOAL) Skilled Nursing Goal (LTG) Pt will be able to sleep at night in a comfortable position without disturbing sleep due to pain. LTG Duration 11/25/21 One Impairment Lacks appropriate HEP Short Term Goal (STG) Pt will be educated in proper standing posture to minimize LB strain. STG Duration 09/14/21 Skilled Nursing Goal (LTG) Pt will be independent with a self care HEP to manage her R hip/LBP. (08/31/21: I/S pt in TA tightening for core stability) (09/04/21: I/S pt in trunk flex stretch in sitting) LTG Duration 11/25/21 (09/04/21: Progressed) Progress Towards Goals Progress Comments Pain decreased from 5/10 to 4/ 10 after treatment. Assessment Summary Assessment Pt in R LB flare up after getting in/out of cars. SKTC stretch before PPT, KTC and TA ex's was helpful to loosen QL . Not able to fully correct sacral torsion, but corrected innominate inflare/outflare. Pt was mildly less in pain after treatement. Physical Therapy Plan Frequency and Duration Frequency of Treatment 2x/Week Plan of Care Start Date 08/28/21 Plan of Care End Date 11/25/21 Next Visit Focus/Plan Next Note Type Treatment Note Next Visit Plan Review I/S HEP: sitting trunk flex stretch and issue handout . Might try K-tape to relax R QL if ms guarding persists. HEP: trunk flex/R rot, L SB), Piriformis stretch (jimmie), Hamstring/neural stretch (R>L) . Check R IT Band. Check Provocation Tests: R Piriformis. Assess hip strength, (AB/AD/ ext), hip ext mobility ( iliopsoas). POC: Improve trunk mobility ( flex, R rot, L SB); posture and painfree transfers; manual therapy (scar mob, R Ilipsoas & QL release, K-tape at R hip and R QL & abdomen, balance pelvis as needed; Core Stabilization; Gait training.
--- NOTE | 2021-09-14 13:16 | PT.OTN ---
Current Diagnoses Pain in right hip (09/14/21) Dorsalgia, unspecified (09/14/21) Muscle weakness (generalized) (09/14/21) Physical Therapy Treatment Note PT-OP-A Visit Information Start: 08/23/21 17:58 Freq: Status: Active Protocol: Document 09/14/21 09:51 LRN (Rec: 09/14/21 10:35 LRN [id number]) Out-Patient Physical Therapy Visit Information Visit Information Visit Type Treatment Note Visit Start Time 09:51 Visit Stop Time 10:31 Total Visit Minutes 40 Visit Number 6 Evaluation Information Evaluation Date 08/28/21 Precautions Precautions Per intake form and pt: Osteoarthritis of R Hip, fingers & L toe (pre-surgery showed arthritis); DVT and 2 clots to R kidney and liver, and mild heart attack - in early 50's that pt attributes to being in bed a lot due sickness from Ulcerative colitis. 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 L TMJ dysfunction-couldn't open mouth x 1 (resolved on own) - 2 months ago. PT-OP-B Current Condition Start: 08/23/21 17:58 Freq: Status: Active Protocol: Document 08/28/21 09:52 LRN (Rec: 08/28/21 12:46 LRN [id number]) Current Condition History of Current Condition Onset Date R Hip pain 1 yr ago, Back pain ~ 6 months ago Current Complaints Deep R lateral hip pain, R LB/ SIJ pain History of Current Condition Started with R hip pain of insidious onset, recent x-rays showing arthritis. R low low back started to hurt because walking different. R Hip pain throbs, deep, Going up stairs painful, not painful descending, but fearful of falling. Denies falls on stairs. 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 Physical therapy for L hip 2017 for bursitis in [facility]. Had cortisone injections (2 in [place], 1 at [facility]), 3rd injection calmed the hip pain down to nothing, wouldn't even call it pain. Future Testing and Treatments Planned None. Developmental History Developmental History Mother of 2 children of vaginal births. Last difficulties due to bladder infections. 2 surgerical scars from hip to hip across abdomen due to 1) bladder lift at age 28-29, and 2) hyste age 40. Treatment Goals Patient/Caregiver Goals Pt goal with therapy: Walk daily [place] and back easily and without limp, Not have pain at night because hurting and disturbing sleep. Prior Functional Status Baseline Function- ADL's Independent Baseline Function- Mobility Independent Baseline Function- Work/School Walked 1-3 miles in neighborhoods/[place]. Baseline Function- Other No pain in R hip or R SIJ/LB previously. Current Functional Impairments (Reported) Functional Limitations- ADL's Interfers with sleeping, getting in/out of tub to shower (move slow and hangs onto sides), limited in bending over,. Balance has changed can't get in/out of tub without hanging onto sometihng. Denies difficulty with transfer up/down from commode. Functional Limitations- Mobility/Gait Interfers with walking, not able to walk to [place] and back. Difficulty ascending stairs ( no difficulty descending stairs) Limps/Hobbles after prolonged sitting also after weeding. Personal Factors Other Personal Factors That May Effect OA R hip, Dx per pt of blood Therapy/Recovery clotting disorder. PT-OP-C Subjective Start: 08/23/21 17:58 Freq: Status: Active Protocol: Document 09/14/21 09:51 LRN (Rec: 09/14/21 10:35 LRN [id number]) OP-PT Subjective Patient Comments Patient Comments R hip woke her up at night laying or L side: R hip and down the leg was 7/10; currently 3-4/10 PT-OP-J Posture/Palpation/Skin Start: 08/23/21 17:58 Freq: Status: Active Protocol: Document 08/31/21 09:57 LRN (Rec: 08/31/21 10:41 LRN [id number]) Palpation Assessment Location Leg length Palpation Location Ankles Palpation Details Supine L leg long > Long sit R leg long. PT-OP-K Range of Motion Start: 08/23/21 17:58 Freq: Status: Active Protocol: Document 08/28/21 09:52 LRN (Rec: 08/28/21 12:46 LRN [id number]) Lumbar Spine Range of Motion Lumbar Spine Active Degrees Testing Position Standing Flexion 40 Extension 12 Rotation Left 10 Rotation Right 5 Lateral Flexion Left 3 Lateral Flexion Right 5 ROM Limitations Pain Comments Trunk flexion is 40 deg's with hip flexion 25 deg's (true trunk flex is 15 deg's). Trunk extension is 12 deg's with hip ext 0 deg's (true trunk ext is 12 deg's). Hip Goniometric Range of Motion Hip Right Passive Hip ROM WFL No Testing Position Supine Straight Leg Raise 75 Abduction 40 Internal Rotation 20 External Rotation 70 Left Passive Testing Position Supine Straight Leg Raise 80 Abduction 40 Internal Rotation 25 External Rotation 75 PT-OP-L Special Tests Start: 08/23/21 17:58 Freq: Status: Active Protocol: Document 08/28/21 09:52 LRN (Rec: 08/28/21 12:46 LRN [id number]) Special Tests Lumbar Spine Special Tests Straight Leg Raise Test Results - bilaterally Comments 75 R, 80 L Compression Test Results neg Comments No increase pain, pt losses stability in L/S extension direction Standing Flexion Test Results neg Comments No change in R LBP Slump Test Results R LE: neg Comments No change in R LBP Hip Special Tests [facility] Resisted Hip Flexion Test Results R hip: Positive Comments Pain Log Roll Test Test Results neg Comments No change in pain WILLIAMS Test Results R hip: Positive Comments Pain deep in R hip joint. PT-OP-M Strength Start: 08/23/21 17:58 Freq: Status: Active Protocol: Document 08/28/21 09:52 LRN (Rec: 08/28/21 12:46 LRN [id number]) Trunk Strength Trunk Manual Muscle Testing Core Stabilization Loss of core stability with R LE mvmt. Hip Strength Hip Manual Muscle Testing Right Flexion (L2) 5 Normal External Rotation 5 Normal Internal Rotation 3- Fair- Left Flexion (L2) 4 Good External Rotation 3+ Fair+ Internal Rotation 3- Fair- PT-OP-Q Treatments Start: 08/23/21 17:58 Freq: Status: Active Protocol: Document 09/14/21 09:51 LRN (Rec: 09/14/21 10:35 LRN [id number]) Therapeutic Exercises Sitting Exercises Trunk Rot Sitting Exercise Name Trunk Rot stretch Side right Reps/Minutes 1' Manual Therapy Treatment Soft Tissue Mobilization L QL Body Location L QL Mobilization Type Strumming,Sustained Pressure R Trunk Body Location Upper trunk Fascial rot to R Mobilization Type Myofascial Release Intensity/Depth Superficial Body Position Prone Balancing of sacrum Body Location Sacrum at KINGSLEY & shear, Ischial Tuberosity's. Mobilization Type Myofascial Release,Sustained Pressure Intensity/Depth Moderate Body Position Prone Comments Correction obtained. Pt had no pain unless lifting R LE Joint Mobilizations L innominate Joint L SIJ Direction Correcting L chair mechanic rot/ inflare R innominate Joint R SIJ Direction Correcting Body Position Supine Self-Care/Home Management Treatment Education Patient Education Home Exercise Program Activities Self-Care/Home Management Activities Issued & reviewed HEP: Sitting QL stretch of R rot & Standing trunk SB to stretch R side of body. PT-OP-T Assessment and Plan Start: 08/23/21 17:58 Freq: Status: Active Protocol: Document 09/14/21 09:51 LRN (Rec: 09/14/21 10:35 LRN [id number]) Physical Therapy Assessment Goals Four Impairment Decreased function. Impairment Function limited due to pain: LEFS score 50 (20-39% impaired, score 48-62) JOHN: 9/50 = 18/100 (1-19% impaired, score 1-19). Fdc Goal (LTG) Improve function per LEFS score > 62 (1-19% impaired, score 63-79), or JOHN score 10 or less. LTG Duration 11/25/21 Three Impairment Decreased ambulatory ability due to R hip pain. Impairment Antalgic gait. Not able to walk for exercise due to R hip pain. Short Term Goal (STG) Pt will be able to tolerate walking 1/[address] to [facility] and back prior to onset of pain causing antalgic gait. STG Duration 10/12/21 Fdc Goal (LTG) Walk daily to [facility] and back easily and without limp, LTG Duration 11/25/21 Two Impairment R hip pain (6-7) & R LBP (3 -4/10) Impairment Diffculty sleeping due to R hip and R low back pain. Short Term Goal (STG) Pt will be educated in best positions for nighttime sleep to minimize R hip/R LB pain. STG Duration 08/31/21 (09/04/21; MET GOAL) [employer] Goal (LTG) Pt will be able to sleep at night in a comfortable position without disturbing sleep due to pain. LTG Duration 11/25/21 One Impairment Lacks appropriate HEP Short Term Goal (STG) Pt will be educated in proper standing posture to minimize LB strain. STG Duration 09/14/21 Fdc Goal (LTG) Pt will be independent with a self care HEP to manage her R hip/LBP. (08/31/21: I/S pt in TA tightening for core stability) (09/04/21: I/S pt in trunk flex stretch in sitting) (09/14/21: HEP: Trunk rot & SB stretch) LTG Duration 11/25/21 (09/14/21: Progressed) Progress Towards Goals Progress Comments Progressed HEP Assessment Summary Assessment Pt L innom posterior rot/ inflare appeared corrected, but sacrum remained mildly R rotated with increased R hip and R mid>upper back ms tightness. L QL was tight but appeared to normalized after STM. Pt reported feeling good after treatment, but noted dysfunctional body mechanics for picking up her items after therapy (rotating to bend over to reach and with feet in scissor positioning). Further body mechanics training may be needed. Pt is probably straining her R hip during the night due to her R knee dropping over the left when in L sidelie. Physical Therapy Plan Frequency and Duration Frequency of Treatment 2x/Week Plan of Care Start Date 08/28/21 Plan of Care End Date 11/25/21 Next Visit Focus/Plan Next Note Type Treatment Note Next Visit Plan Review issued R trunk rot & L SB stretch, review I/S HEP: sitting trunk flex stretch and issue handout. Might try K- tape to relax R hip ms if guarding persists. HEP: Piriformis stretch (R>L) , Hamstring/neural stretch (R> L). Check R IT Band. Check Provocation Tests: R Piriformis. Assess hip strength, (AB/AD/ ext), hip ext mobility ( iliopsoas). POC: Improve trunk mobility ( flex, R rot, L SB) & core stability; posture and painfree transfers; manual therapy (scar mob, R Ilipsoas & QL release, K-tape at R hip and R QL & abdomen, balance pelvis as needed; Gait training.
--- NOTE | 2021-09-21 10:30 | PT.OTN ---
Current Diagnoses Pain in right hip (09/21/21) Dorsalgia, unspecified (09/21/21) Muscle weakness (generalized) (09/21/21) Physical Therapy Treatment Note PT-OP-A Visit Information Start: 08/23/21 17:58 Freq: Status: Active Protocol: Document 09/21/21 09:51 SP (Rec: 09/21/21 10:37 SP [id number]) Out-Patient Physical Therapy Visit Information Visit Information Visit Type Treatment Note Visit Note TERESA Fallon assisted in ther ex instruction to pt under direct supervision and instruction of KILN FURNITURE SAW TENDER Reza throughout tx. Visit Start Time 09:51 Visit Stop Time 10:30 Total Visit Minutes 39 Visit Number 7 Number of KILN FURNITURE SAW TENDER Visits 1 Evaluation Information Evaluation Date 08/28/21 Precautions Precautions Per intake form and pt: Osteoarthritis of R Hip, fingers & L toe (pre-surgery showed arthritis); DVT and 2 clots to R kidney and liver, and mild heart attack - in early 50's that pt attributes to being in bed a lot due sickness from Ulcerative colitis. 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 L TMJ dysfunction-couldn't open mouth x 1 (resolved on own) - 2 months ago. PT-OP-B Current Condition Start: 08/23/21 17:58 Freq: Status: Active Protocol: Document 08/28/21 09:52 LRN (Rec: 08/28/21 12:46 LRN [id number]) Current Condition History of Current Condition Onset Date R Hip pain 1 yr ago, Back pain ~ 6 months ago Current Complaints Deep R lateral hip pain, R LB/ SIJ pain History of Current Condition Started with R hip pain of insidious onset, recent x-rays showing arthritis. R low low back started to hurt because walking different. R Hip pain throbs, deep, Going up stairs painful, not painful descending, but fearful of falling. Denies falls on stairs. 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 Physical therapy for L hip 2017 for bursitis in [facility]. Had cortisone injections (2 in [place], 1 at [facility]), 3rd injection calmed the hip pain down to nothing, wouldn't even call it pain. Future Testing and Treatments Planned None. Developmental History Developmental History Mother of 2 children of vaginal births. Last difficulties due to bladder infections. 2 surgerical scars from hip to hip across abdomen due to 1) bladder lift at age 28-29, and 2) hyste age 40. Treatment Goals Patient/Caregiver Goals Pt goal with therapy: Walk daily to [facility] and back easily and without limp, Not have pain at night because hurting and disturbing sleep. Prior Functional Status Baseline Function- ADL's Independent Baseline Function- Mobility Independent Baseline Function- Work/School Walked 1-3 miles in neighborhoods/[place]. Baseline Function- Other No pain in R hip or R SIJ/LB previously. Current Functional Impairments (Reported) Functional Limitations- ADL's Interfers with sleeping, getting in/out of tub to shower (move slow and hangs onto sides), limited in bending over,. Balance has changed can't get in/out of tub without hanging onto sometihng. Denies difficulty with transfer up/down from commode. Functional Limitations- Mobility/Gait Interfers with walking, not able to walk to [facility] and back. Difficulty ascending stairs ( no difficulty descending stairs) Limps/Hobbles after prolonged sitting also after weeding. Personal Factors Other Personal Factors That May Effect OA R hip, Dx per pt of blood Therapy/Recovery clotting disorder. PT-OP-C Subjective Start: 08/23/21 17:58 Freq: Status: Active Protocol: Document 09/21/21 09:51 SP (Rec: 09/21/21 10:37 SP [id number]) OP-PT Subjective Patient Comments Patient Comments Pt reports she can do stairs but she still hurts. Thinks that manual sometimes makes the pain worse. PT-OP-J Posture/Palpation/Skin Start: 08/23/21 17:58 Freq: Status: Active Protocol: Document 08/31/21 09:57 LRN (Rec: 08/31/21 10:41 LRN [id number]) Palpation Assessment Location Leg length Palpation Location Ankles Palpation Details Supine L leg long > Long sit R leg long. PT-OP-K Range of Motion Start: 08/23/21 17:58 Freq: Status: Active Protocol: Document 08/28/21 09:52 LRN (Rec: 08/28/21 12:46 LRN [id number]) Lumbar Spine Range of Motion Lumbar Spine Active Degrees Testing Position Standing Flexion 40 Extension 12 Rotation Left 10 Rotation Right 5 Lateral Flexion Left 3 Lateral Flexion Right 5 ROM Limitations Pain Comments Trunk flexion is 40 deg's with hip flexion 25 deg's (true trunk flex is 15 deg's). Trunk extension is 12 deg's with hip ext 0 deg's (true trunk ext is 12 deg's). Hip Goniometric Range of Motion Hip Right Passive Hip ROM WFL No Testing Position Supine Straight Leg Raise 75 Abduction 40 Internal Rotation 20 External Rotation 70 Left Passive Testing Position Supine Straight Leg Raise 80 Abduction 40 Internal Rotation 25 External Rotation 75 PT-OP-L Special Tests Start: 08/23/21 17:58 Freq: Status: Active Protocol: Document 08/28/21 09:52 LRN (Rec: 08/28/21 12:46 LRN [id number]) Special Tests Lumbar Spine Special Tests Straight Leg Raise Test Results - bilaterally Comments 75 R, 80 L Compression Test Results neg Comments No increase pain, pt losses stability in L/S extension direction Standing Flexion Test Results neg Comments No change in R LBP Slump Test Results R LE: neg Comments No change in R LBP Hip Special Tests [facility] Resisted Hip Flexion Test Results R hip: Positive Comments Pain Log Roll Test Test Results neg Comments No change in pain WILLIAMS Test Results R hip: Positive Comments Pain deep in R hip joint. PT-OP-M Strength Start: 08/23/21 17:58 Freq: Status: Active Protocol: Document 08/28/21 09:52 LRN (Rec: 08/28/21 12:46 LRN [id number]) Trunk Strength Trunk Manual Muscle Testing Core Stabilization Loss of core stability with R LE mvmt. Hip Strength Hip Manual Muscle Testing Right Flexion (L2) 5 Normal External Rotation 5 Normal Internal Rotation 3- Fair- Left Flexion (L2) 4 Good External Rotation 3+ Fair+ Internal Rotation 3- Fair- PT-OP-Q Treatments Start: 08/23/21 17:58 Freq: Status: Active Protocol: Document 09/21/21 09:51 SP (Rec: 09/21/21 10:37 SP [id number]) Therapeutic Exercises Supine Exercises Pelvic realignment ex Supine Exercise Name L HS isometric, R hip flexion isometric, B pelvic lift, reynaldo hip abd/ add Equipment Used (see manual 8/5) Reps/Minutes 5 sec hold x3 each Comments Time spent set up and gentle performance, no pain LTR Supine Exercise Name added to HEP Side bilateral Reps/Minutes 3 sec hold x5 each side Comments cued set up and form- good stretch response HS neural glide Supine Exercise Name added to HEP Side bilateral Equipment Used w / strap and AP Reps/Minutes 5 reps each side Comments cues for set up and good feedback painfree response ITB stretch Supine Exercise Name in PT Equipment Used use strap over foot Reps/Minutes 30 Comments Pt didn't tolerated ITB stretch so DC. piriformis stretch Supine Exercise Name foot over opp knee- added to HEP Side bilateral Equipment Used towel held behind thigh Reps/Minutes 30 Comments cues for set up and directioning R KTC stretch Supine Exercise Name R KTC stretch Equipment Used Strap Reps/Minutes 30 x2 Comments occasional cue for set up review TA tightening Supine Exercise Name Training to tighten and to hold, cues for with transfers Comments cued for log roll and TA during supine>sit stabilization Sitting Exercises Trunk flex stretch Sitting Exercise Name Trunk FB to stretch R QL Resistance HEP reviewed Reps/Minutes 15 sec x2 Comments better response to forward, not sheron deviate to L for RQL isolate Manual Therapy Treatment Soft Tissue Mobilization Balancing of sacrum Body Location L derotation posterior, R derotation anterior- utilized MET techniques Intensity/Depth Moderate Body Position Supine supported LE 90 hip /90 knee Comments manual then instructed L Isometric hamstring/LE ext manual, R isometric hip flexion and instruction on self. Pelvic realignment exercises. Ball squeeze between knees, isometric abd Level 2 TB around knees. Added to HEP Self-Care/Home Management Treatment Education Patient Education Home Exercise Program Other Education HEP review, added: LTR, HS neural glide, piriformis stretch, trunk flexion stretch , pelvic realignment exercises , see HOs provided. PT-OP-T Assessment and Plan Start: 08/23/21 17:58 Freq: Status: Active Protocol: Document 09/21/21 09:51 SP (Rec: 09/21/21 10:37 SP [id number]) Physical Therapy Assessment Goals Four Impairment Decreased function. Impairment Function limited due to pain: LEFS score 50 (20-39% impaired, score 48-62) JOHN: 9/50 = 18/100 (1-19% impaired, score 1-19). Prison Goal (LTG) Improve function per LEFS score > 62 (1-19% impaired, score 63-79), or JOHN score 10 or less. LTG Duration 11/25/21 Three Impairment Decreased ambulatory ability due to R hip pain. Impairment Antalgic gait. Not able to walk for exercise due to R hip pain. Short Term Goal (STG) Pt will be able to tolerate walking [address] [place] and back prior to onset of pain causing antalgic gait. STG Duration 10/12/21 Ampoule Examiner Goal (LTG) Walk daily to [place] and back easily and without limp, LTG Duration 11/25/21 Two Impairment R hip pain (6-7) & R LBP ( -05/27) Impairment Diffculty sleeping due to R hip and R low back pain. Short Term Goal (STG) Pt will be educated in best positions for nighttime sleep to minimize R hip/R LB pain. STG Duration 08/31/21 (09/04/21; MET GOAL) Ampoule Examiner Goal (LTG) Pt will be able to sleep at night in a comfortable position without disturbing sleep due to pain. LTG Duration 11/25/21 One Impairment Lacks appropriate HEP Short Term Goal (STG) Pt will be educated in proper standing posture to minimize LB strain. STG Duration 09/14/21 Prison Goal (LTG) Pt will be independent with a self care HEP to manage her R hip/LBP. (08/31/21: I/S pt in TA tightening for core stability) (09/04/21: I/S pt in trunk flex stretch in sitting) (09/14/21: HEP: Trunk rot & SB stretch) 09/21/21: added: LTR, HS neural glide, piriformis stretch, trunk flexion stretch, pelvic realignment exercises, see HOs provided. LTG Duration 11/25/21 (09/21/21: Progressed ) Assessment Summary Assessment Pt reported low to no pain during ther ex and newly added exercises/stretches, good stretch . Cued for gentle musculature engagement to not excessive recruit irritation to R hip/LB. Pt reported not significant change in pain 5- R hip/LB pain end tx but stated the ther ex found benefical and understood gentle movement/stretch. Recommend continue skilled therapy for psychological assistant with pain, trial functional strengthening mobility and assess response next tx. Physical Therapy Plan Frequency and Duration Frequency of Treatment 2x/Week Plan of Care Start Date 08/28/21 Plan of Care End Date 11/25/21 Therapeutic Interventions Therapeutic Interventions Aquatic Therapy,Gait Training, Home Exercise Program,Joint Mobilizations,Manual Therapy, Neuromuscular Re-education, Patient/Caregiver Education, Self-Care/Home Management,Soft Tissue Mobilization,Taping, Therapeutic Exercises Modalities Cold Pack/Ice Massage,Hot Packs Other Therapeutic Interventions Iontophoresis with 4mg/ml Dexamethasone with Sodium Phosphate. Next Visit Focus/Plan Next Note Type Treatment Note Next Visit Plan Assess response to stretching, pelvic realignment exercises added last tx. Next tx: functional mobility and gentle strengthening, maybe instruct self STMs ball wall glut/LB and or LE rolling pin for self massage relief. Ask if uses modalities for pain relief. POC: Review issued R trunk rot & L SB stretch, review I/S HEP: sitting trunk flex stretch and issue handout. Might try K-tape to relax R hip ms if guarding persists. HEP: Piriformis stretch (R>L) , Hamstring/neural stretch (R> L). Check R IT Band. Check Provocation Tests: R Piriformis. Assess hip strength, (AB/AD/ ext), hip ext mobility ( iliopsoas). POC: Improve trunk mobility ( flex, R rot, L SB) & core stability; posture and painfree transfers; manual therapy (scar mob, R Ilipsoas & QL release, K-tape at R hip and R QL & abdomen, balance pelvis as needed; Gait training.
--- NOTE | 2021-09-25 11:30 | PT.OTN ---
Current Diagnoses Pain in right hip (09/25/21) Dorsalgia, unspecified (09/25/21) Muscle weakness (generalized) (09/25/21) Physical Therapy Treatment Note PT-OP-A Visit Information Start: 08/23/21 17:58 Freq: Status: Active Protocol: Document 09/25/21 10:39 SP (Rec: 09/25/21 11:40 SP [id number]) Out-Patient Physical Therapy Visit Information Visit Information Visit Type Treatment Note Visit Start Time 10:39 Visit Stop Time 11:30 Total Visit Minutes 51 Visit Number 8 Number of [employer]BE[employer] INSPECTOR Visits 2 Evaluation Information Evaluation Date 08/28/21 Precautions Precautions Per intake form and pt: Osteoarthritis of R Hip, fingers & L toe (pre-surgery showed arthritis); DVT and 2 clots to R kidney and liver, and mild heart attack - in early 50's that pt attributes to being in bed a lot due sickness from Ulcerative colitis. 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 L TMJ dysfunction-couldn't open mouth x 1 (resolved on own) - 2 months ago. PT-OP-B Current Condition Start: 08/23/21 17:58 Freq: Status: Active Protocol: Document 08/28/21 09:52 LRN (Rec: 08/28/21 12:46 LRN [id number]) Current Condition History of Current Condition Onset Date R Hip pain 1 yr ago, Back pain ~ 6 months ago Current Complaints Deep R lateral hip pain, R LB/ SIJ pain History of Current Condition Started with R hip pain of insidious onset, recent x-rays showing arthritis. R low low back started to hurt because walking different. R Hip pain throbs, deep, Going up stairs painful, not painful descending, but fearful of falling. Denies falls on stairs. 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 Physical therapy for L hip 2017 [facility] burs[facility]. Had cortisone injections (2 in [place], 1 at [facility]), 3rd injection calmed the hip pain down to nothing, wouldn't even call it pain. Future Testing and Treatments Planned None. Developmental History Developmental History Mother of 2 children of vaginal births. Last difficulties due to bladder infections. 2 surgerical scars from hip to hip across abdomen due to 1) bladder lift at age 28-29, and 2) hyste age 40. Treatment Goals Patient/Caregiver Goals Pt goal with therapy: Walk daily to [facility] and back easily and without limp, Not have pain at night because hurting and disturbing sleep. Prior Functional Status Baseline Function- ADL's Independent Baseline Function- Mobility Independent Baseline Function- Work/School Walked 1-3 miles in neighborhoods/[place]. Baseline Function- Other No pain in R hip or R SIJ/LB previously. Current Functional Impairments (Reported) Functional Limitations- ADL's Interfers with sleeping, getting in/out of tub to shower (move slow and hangs onto sides), limited in bending over,. Balance has changed can't get in/out of tub without hanging onto sometihng. Denies difficulty with transfer up/down from commode. Functional Limitations- Mobility/Gait Interfers with walking, not able to walk to [place] and back. Difficulty ascending stairs ( no difficulty descending stairs) Limps/Hobbles after prolonged sitting also after weeding. Personal Factors Other Personal Factors That May Effect OA R hip, Dx per pt of blood Therapy/Recovery clotting disorder. PT-OP-C Subjective Start: 08/23/21 17:58 Freq: Status: Active Protocol: Document 09/25/21 10:39 SP (Rec: 09/25/21 11:40 SP [id number]) OP-PT Subjective Patient Comments Patient Comments Pt reports she is able to ascend/descend stairs with light contact rails receiprocal stepping light contact rail, able to walk from [place] to [facility] and back about 1 mile early in am and no LBP. LBP gets worse as day goes on. Reports hasn't been doing her exercises, procrastinates when remembers. PT-OP-J Posture/Palpation/Skin Start: 08/23/21 17:58 Freq: Status: Active Protocol: Document 08/31/21 09:57 LRN (Rec: 08/31/21 10:41 LRN [id number]) Palpation Assessment Location Leg length Palpation Location Ankles Palpation Details Supine L leg long > Long sit R leg long. PT-OP-K Range of Motion Start: 08/23/21 17:58 Freq: Status: Active Protocol: Document 08/28/21 09:52 LRN (Rec: 08/28/21 12:46 LRN [id number]) Lumbar Spine Range of Motion Lumbar Spine Active Degrees Testing Position Standing Flexion 40 Extension 12 Rotation Left 10 Rotation Right 5 Lateral Flexion Left 3 Lateral Flexion Right 5 ROM Limitations Pain Comments Trunk flexion is 40 deg's with hip flexion 25 deg's (true trunk flex is 15 deg's). Trunk extension is 12 deg's with hip ext 0 deg's (true trunk ext is 12 deg's). Hip Goniometric Range of Motion Hip Right Passive Hip ROM WFL No Testing Position Supine Straight Leg Raise 75 Abduction 40 Internal Rotation 20 External Rotation 70 Left Passive Testing Position Supine Straight Leg Raise 80 Abduction 40 Internal Rotation 25 External Rotation 75 PT-OP-L Special Tests Start: 08/23/21 17:58 Freq: Status: Active Protocol: Document 08/28/21 09:52 LRN (Rec: 08/28/21 12:46 LRN [id number]) Special Tests Lumbar Spine Special Tests Straight Leg Raise Test Results - bilaterally Comments 75 R, 80 L Compression Test Results neg Comments No increase pain, pt losses stability in L/S extension direction Standing Flexion Test Results neg Comments No change in R LBP Slump Test Results R LE: neg Comments No change in R LBP Hip Special Tests [facility] Resisted Hip Flexion Test Results R hip: Positive Comments Pain Log Roll Test Test Results neg Comments No change in pain WILLIAMS Test Results R hip: Positive Comments Pain deep in R hip joint. PT-OP-M Strength Start: 08/23/21 17:58 Freq: Status: Active Protocol: Document 08/28/21 09:52 LRN (Rec: 08/28/21 12:46 LRN [id number]) Trunk Strength Trunk Manual Muscle Testing Core Stabilization Loss of core stability with R LE mvmt. Hip Strength Hip Manual Muscle Testing Right Flexion (L2) 5 Normal External Rotation 5 Normal Internal Rotation 3- Fair- Left Flexion (L2) 4 Good External Rotation 3+ Fair+ Internal Rotation 3- Fair- PT-OP-Q Treatments Start: 08/23/21 17:58 Freq: Status: Active Protocol: Document 09/25/21 10:39 SP (Rec: 09/25/21 11:40 SP [id number]) Therapeutic Exercises Supine Exercises LTR Supine Exercise Name reviewed HEP Side bilateral Reps/Minutes 3 sec hold x5 each side Comments cued set up and form- good stretch response HS neural glide Supine Exercise Name reviewed HEP Side right Equipment Used w / strap and AP Reps/Minutes X10 AP Comments good feedback painfree stretch piriformis stretch Supine Exercise Name foot over opp knee- reviewed HEP Side bilateral Equipment Used towel held behind thigh Reps/Minutes 30 Comments cues for set up and directioning Sitting Exercises Trunk Rot Sitting Exercise Name Trunk Rot stretch R>L Side bilateral Resistance AAROM Equipment Used seated in chair, 1 UE on leg/ other chair seat Reps/Minutes 10s hold x5 Comments cued breath with hold- good feedback stretch Trunk flex stretch Sitting Exercise Name Trunk FB to stretch R QL Resistance HEP reviewed Reps/Minutes 15 sec x2 Comments better response to forward, not sheron deviate to L for RQL isolate Standing Exercises sink QL, ES stretch Standing Exercise Name added toHEP Resistance R>L Reps/Minutes 15 s hold x3 each side Comments good feedback response stretch self STMs Standing Exercise Name added to HEP- ball on wall glut, ES Side right Equipment Used racquetball Reps/Minutes 1 min Comments good feedback response Manual Therapy Treatment Soft Tissue Mobilization R Piriformis Body Location R Piriformis, QL Mobilization Type Myofascial Release,Sustained Pressure Body Position Sidelying Comments manual and instruction how use ball wall at home R IT Band Body Location R IT band mid and proximal to hip Mobilization Type Myofascial Release Intensity/Depth Superficial Body Position Sidelying Comments manual and instruction use of ball wall R Trunk Body Location Upper trunk Fascial rot to R Mobilization Type Myofascial Release Intensity/Depth Superficial Body Position Sidelying Comments manual QL, lat, intercostals Self-Care/Home Management Treatment Education Patient Education Home Exercise Program Other Education Initiated ball wall STMs in standing and sink stretch for LB stretch/massage. Ed for continued performance at home for carryover. PT-OP-R Modalities Start: 08/23/21 17:58 Freq: Status: Active Protocol: Document 09/25/21 10:39 SP (Rec: 09/25/21 11:40 SP [id number]) Hot Pack/Cold Pack Treatment MHP LB Location LB Patient Position Sitting Treatment Duration (minutes) 10 Patient Tolerance Good Comments Good feedback response to MHP for LB discomfort. Trial benefit for home use vs CP. Reported like the heat better. PT-OP-T Assessment and Plan Start: 08/23/21 17:58 Freq: Status: Active Protocol: Document 09/25/21 10:39 SP (Rec: 09/25/21 11:40 SP [id number]) Physical Therapy Assessment Goals Four Impairment Decreased function. Impairment Function limited due to pain: LEFS score 50 (20-39% impaired, score 48-62) JOHN: 50 = 18/100 (1-19% impaired, score 1-19). [facility] Goal (LTG) Improve function per LEFS score > 62 (1-19% impaired, score 63-79), or JOHN score 10 or less. LTG Duration 11/25/21 Three Impairment Decreased ambulatory ability due to R hip pain. Impairment Antalgic gait. Not able to walk for exercise due to R hip pain. Short Term Goal (STG) Pt will be able to tolerate walking [address] [place] park and back prior to onset of pain causing antalgic gait. 09/25/21: MET GOAL: was able to walk to park and back with no pain, did sit on bench for rest. STG Duration 10/12/21 GOAL MET: 09/25/21 [facility] Goal (LTG) Walk daily to [place] and back easily and without limp. 09/25/21: Progressing: maybe little trunk wt shift/ limp when returned to /from park and seated rest, can't walk there, full loop and back yet. LTG Duration 11/25/21 progressin09/25/21 Two Impairment R hip pain (6-7/10) & R LBP (3 -4/10) Impairment Diffculty sleeping due to R hip and R low back pain. Short Term Goal (STG) Pt will be educated in best positions for nighttime sleep to minimize R hip/R LB pain. STG Duration 08/31/21 (09/04/21; MET GOAL) [facility] Goal (LTG) Pt will be able to sleep at night in a comfortable position without disturbing sleep due to pain. LTG Duration 11/25/21 One Impairment Lacks appropriate HEP Short Term Goal (STG) Pt will be educated in proper standing posture to minimize LB strain. STG Duration 09/14/21 [facility] Goal (LTG) Pt will be independent with a self care HEP to manage her R hip/LBP. (08/31/21: I/S pt in TA tightening for core stability) (09/04/21: I/S pt in trunk flex stretch in sitting) (09/14/21: HEP: Trunk rot & SB stretch) 09/21/21: added: LTR, HS neural glide, piriformis stretch, trunk flexion stretch, pelvic realignment exercises, see HOs provided. LTG Duration 11/25/21 (09/21/21: Progressed ) Progress Towards Goals Progress Towards Goals Progressing Toward Goals Progress Comments MET STG #3. Assessment Summary Assessment Pt responded well to manual, stretching, stated little sore welcoming to [facility] trial for home use. Cues for set up stretch and ed for continued HEP at home throughout day for carryover response. Physical Therapy Plan Frequency and Duration Frequency of Treatment 2x/Week Plan of Care Start Date 08/28/21 Plan of Care End Date 11/25/21 Therapeutic Interventions Therapeutic Interventions Aquatic Therapy,Gait Training, Home Exercise Program,Joint Mobilizations,Manual Therapy, Neuromuscular Re-education, Patient/Caregiver Education, Self-Care/Home Management,Soft Tissue Mobilization,Taping, Therapeutic Exercises Modalities Cold Pack/Ice Massage,Hot Packs Other Therapeutic Interventions Iontophoresis with 4mg/ml Dexamethasone with Sodium Phosphate. Next Visit Focus/Plan Next Note Type Treatment Note Next Visit Plan Assess response to sink and supine HEP stretches, Next tx : functional mobility and gentle strengthening, use of HP home vs CP. Check goals POC: Review issued R trunk rot & L SB stretch, review I/S HEP: sitting trunk flex stretch and issue handout. Might try K-tape to relax R hip ms if guarding persists. HEP: Piriformis stretch (R>L) , Hamstring/neural stretch (R> L). Check R IT Band. Check Provocation Tests: R Piriformis. Assess hip strength, (AB/AD/ ext), hip ext mobility ( iliopsoas). POC: Improve trunk mobility ( flex, R rot, L SB) & core stability; posture and painfree transfers; manual therapy (scar mob, R Ilipsoas & QL release, K-tape at R hip and R QL & abdomen, balance pelvis as needed; Gait training.
--- NOTE | 2021-09-28 10:30 | PT.OTN ---
Current Diagnoses Pain in right hip (09/28/21) Dorsalgia, unspecified (09/28/21) Muscle weakness (generalized) (09/28/21) Physical Therapy Treatment Note PT-OP-A Visit Information Start: 08/23/21 17:58 Freq: Status: Active Protocol: Document 09/28/21 09:48 SP (Rec: 09/28/21 10:37 SP [id number]) Out-Patient Physical Therapy Visit Information Visit Information Visit Type Treatment Note Visit Note 10th visit next tx, due for PN Visit Start Time 09:48 Visit Stop Time 10:30 Total Visit Minutes 42 Visit Number 9 Number of TAPEMAN Visits 3 Evaluation Information Evaluation Date 08/28/21 Precautions Precautions Per intake form and pt: Osteoarthritis of R Hip, fingers & L toe (pre-surgery showed arthritis); DVT and 2 clots to R kidney and liver, and mild heart attack - in early 50's that pt attributes to being in bed a lot due sickness from Ulcerative colitis. 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 L TMJ dysfunction-couldn't open mouth x 1 (resolved on own) - 2 months ago. PT-OP-B Current Condition Start: 08/23/21 17:58 Freq: Status: Active Protocol: Document 08/28/21 09:52 LRN (Rec: 08/28/21 12:46 LRN [id number]) Current Condition History of Current Condition Onset Date R Hip pain 1 yr ago, Back pain ~ 6 months ago Current Complaints Deep R lateral hip pain, R LB/ SIJ pain History of Current Condition Started with R hip pain of insidious onset, recent x-rays showing arthritis. R low low back started to hurt because walking different. R Hip pain throbs, deep, Going up stairs painful, not painful descending, but fearful of falling. Denies falls on stairs. 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 Physical therapy for L hip 2017 for bursitis in [facility]. Had cortisone injections (2 in [place], 1 at [facility]), 3rd injection calmed the hip pain down to nothing, wouldn't even call it pain. Future Testing and Treatments Planned None. Developmental History Developmental History Mother of 2 children of vaginal births. Last difficulties due to bladder infections. 2 surgerical scars from hip to hip across abdomen due to 1) bladder lift at age 28-29, and 2) hyste age 40. Treatment Goals Patient/Caregiver Goals Pt goal with therapy: Walk daily to [facility] and back easily and without limp, Not have pain at night because hurting and disturbing sleep. Prior Functional Status Baseline Function- ADL's Independent Baseline Function- Mobility Independent Baseline Function- Work/School Walked 1-3 miles in neighborhoods/[place]. Baseline Function- Other No pain in R hip or R SIJ/LB previously. Current Functional Impairments (Reported) Functional Limitations- ADL's Interfers with sleeping, getting in/out of tub to shower (move slow and hangs onto sides), limited in bending over,. Balance has changed can't get in/out of tub without hanging onto sometihng. Denies difficulty with transfer up/down from commode. Functional Limitations- Mobility/Gait Interfers with walking, not able to walk to [place] and back. Difficulty ascending stairs ( no difficulty descending stairs) Limps/Hobbles after prolonged sitting also after weeding. Personal Factors Other Personal Factors That May Effect OA R hip, Dx per pt of blood Therapy/Recovery clotting disorder. PT-OP-C Subjective Start: 08/23/21 17:58 Freq: Status: Active Protocol: Document 09/28/21 09:48 SP (Rec: 09/28/21 10:37 SP [id number]) OP-PT Subjective Patient Comments Patient Comments Pt reports having pain over R LB into R buttocks today. She reports doing really well on stairs now. She also reports does walks in neighborhood aroudn blocks and doing well. PT-OP-J Posture/Palpation/Skin Start: 08/23/21 17:58 Freq: Status: Active Protocol: Document 08/31/21 09:57 LRN (Rec: 08/31/21 10:41 LRN [id number]) Palpation Assessment Location Leg length Palpation Location Ankles Palpation Details Supine L leg long > Long sit R leg long. PT-OP-K Range of Motion Start: 08/23/21 17:58 Freq: Status: Active Protocol: Document 08/28/21 09:52 LRN (Rec: 08/28/21 12:46 LRN [id number]) Lumbar Spine Range of Motion Lumbar Spine Active Degrees Testing Position Standing Flexion 40 Extension 12 Rotation Left 10 Rotation Right 5 Lateral Flexion Left 3 Lateral Flexion Right 5 ROM Limitations Pain Comments Trunk flexion is 40 deg's with hip flexion 25 deg's (true trunk flex is 15 deg's). Trunk extension is 12 deg's with hip ext 0 deg's (true trunk ext is 12 deg's). Hip Goniometric Range of Motion Hip Right Passive Hip ROM WFL No Testing Position Supine Straight Leg Raise 75 Abduction 40 Internal Rotation 20 External Rotation 70 Left Passive Testing Position Supine Straight Leg Raise 80 Abduction 40 Internal Rotation 25 External Rotation 75 PT-OP-L Special Tests Start: 08/23/21 17:58 Freq: Status: Active Protocol: Document 08/28/21 09:52 LRN (Rec: 08/28/21 12:46 LRN [id number]) Special Tests Lumbar Spine Special Tests Straight Leg Raise Test Results - bilaterally Comments 75 R, 80 L Compression Test Results neg Comments No increase pain, pt losses stability in L/S extension direction Standing Flexion Test Results neg Comments No change in R LBP Slump Test Results R LE: neg Comments No change in R LBP Hip Special Tests [facility] Resisted Hip Flexion Test Results R hip: Positive Comments Pain Log Roll Test Test Results neg Comments No change in pain WILLIAMS Test Results R hip: Positive Comments Pain deep in R hip joint. PT-OP-M Strength Start: 08/23/21 17:58 Freq: Status: Active Protocol: Document 08/28/21 09:52 LRN (Rec: 08/28/21 12:46 LRN [id number]) Trunk Strength Trunk Manual Muscle Testing Core Stabilization Loss of core stability with R LE mvmt. Hip Strength Hip Manual Muscle Testing Right Flexion (L2) 5 Normal External Rotation 5 Normal Internal Rotation 3- Fair- Left Flexion (L2) 4 Good External Rotation 3+ Fair+ Internal Rotation 3- Fair- PT-OP-Q Treatments Start: 08/23/21 17:58 Freq: Status: Active Protocol: Document 09/28/21 09:48 SP (Rec: 09/28/21 10:37 SP [id number]) Therapeutic Exercises Supine Exercises Pelvic realignment ex Supine Exercise Name L HS isometric, R hip flexion isometric, B pelvic lift, reynaldo hip abd/ add Equipment Used (see manual 8/5) Reps/Minutes 5 sec hold x3 each Comments Time spent set up and gentle performance, no pain LTR Supine Exercise Name reviewed HEP Side bilateral Reps/Minutes 3-5 sec hold x5 each side Comments good stretch response HS neural glide Supine Exercise Name reviewed HEP Side right Equipment Used w / strap and AP Reps/Minutes X10 AP Comments good feedback painfree active HS stretch piriformis stretch Supine Exercise Name foot over opp knee- reviewed HEP Side bilateral Equipment Used strap held behind thigh Reps/Minutes 30 x2 Comments cues for set up and directioning Sitting Exercises Trunk Rot Sitting Exercise Name Trunk Rot stretch R>L Side bilateral Resistance AAROM into rotation Equipment Used seated in chair with UE support on seat for over pressure stretch Reps/Minutes 10s hold x5 Comments cued breath with hold- good feedback stretch Trunk flex stretch Sitting Exercise Name Trunk FB to stretch for R QL Resistance HEP reviewed Reps/Minutes 15 sec x2 Comments good feedback stretch forward, not viering to side. Standing Exercises LS extension Standing Exercise Name added to HEP Equipment Used hands on hips, pelvis forward shift Reps/Minutes 5 sec hold x5 Comments good feedback LS stretch wall posture roll ups Standing Exercise Name added to HEP Equipment Used u Reps/Minutes x5 reps Comments cued TA segmental rolling spine up wall, CS neutral chin tuck/nod pos sink QL, ES stretch Standing Exercise Name reviewed HEP Resistance R>L Reps/Minutes 15 s hold x3 each side Comments good feedback response stretch to R L pelvis tilt Manual Therapy Treatment Soft Tissue Mobilization L QL Body Location R QL Mobilization Type Myofascial Release,Strumming, Sustained Pressure Intensity/Depth Moderate Body Position Prone over pillows Comments manual and instruction how use ball wall at home (hasn't gotten ball yet) R Piriformis Body Location R Piriformis, QL Mobilization Type Myofascial Release,Sustained Pressure Intensity/Depth Moderate Body Position Prone over pillows Comments manual and instruction how use ball wall at home (hasn't gotten ball yet) Self-Care/Home Management Treatment Education Patient Education Home Exercise Program Other Education Ed for continued stretching at home for carryover flex and mobility in hips. Added LS ext standing with good feedback stretch and wall roll up with ed for carryover tall elevated posture standing/walking to allow decrease forward posture and pressure on LS. Better understanding. PT-OP-R Modalities Start: 08/23/21 17:58 Freq: Status: Active Protocol: Document 09/25/21 10:39 SP (Rec: 09/25/21 11:40 SP [id number]) Hot Pack/Cold Pack Treatment MHP LB Location LB Patient Position Sitting Treatment Duration (minutes) 10 Patient Tolerance Good Comments Good feedback response to MHP for LB discomfort. Trial benefit for home use vs CP. Reported like the heat better. PT-OP-T Assessment and Plan Start: 08/23/21 17:58 Freq: Status: Active Protocol: Document 09/28/21 09:48 SP (Rec: 09/28/21 10:37 SP [id number]) Physical Therapy Assessment Goals Four Impairment Decreased function. Impairment Function limited due to pain: LEFS score 50 (20-39% impaired, score 48-62) JOHN: 50 = 18/100 (1-19% impaired, score 1-19). Intermediate Goal (LTG) Improve function per LEFS score > 62 (1-19% impaired, score 63-79), or JOHN score 10 or less. LTG Duration 11/25/21 Three Impairment Decreased ambulatory ability due to R hip pain. Impairment Antalgic gait. Not able to walk for exercise due to R hip pain. Short Term Goal (STG) Pt will be able to tolerate walking [address] [place] and back prior to onset of pain causing antalgic gait. 09/25/21: MET GOAL: was able to walk to park and back with no pain, did sit on bench for rest. STG Duration 10/12/21 GOAL MET: 09/25/21 Intermediate Goal (LTG) Walk daily to [place] and back easily and without limp. 09/25/21: Progressing: maybe little trunk wt shift/ limp when returned to /from park and seated rest, can't walk there, full loop and back yet. LTG Duration 11/25/21 progressin09/25/21 Two Impairment R hip pain (6-7/10) & R LBP (3 -4/10) Impairment Diffculty sleeping due to R hip and R low back pain. Short Term Goal (STG) Pt will be educated in best positions for nighttime sleep to minimize R hip/R LB pain. STG Duration 08/31/21 (09/04/21; MET GOAL) Director Of Rotc Goal (LTG) Pt will be able to sleep at night in a comfortable position without disturbing sleep due to pain. 09/28/21: progressing in 7 day incriment waking up 3 nights due to back pain. She reports takes Tylenol pm nightly to assist sleep. LTG Duration 11/25/21 progressing 09/28/21 One Impairment Lacks appropriate HEP Short Term Goal (STG) Pt will be educated in proper standing posture to minimize LB strain. 09/28/21: progressing: added wall posture for awareness in trunk alignment then away from wall. STG Duration 09/14/21 progressing 09/28/21 Intermediate Goal (LTG) Pt will be independent with a self care HEP to manage her R hip/LBP. (08/31/21: I/S pt in TA tightening for core stability) (09/04/21: I/S pt in trunk flex stretch in sitting) (09/14/21: HEP: Trunk rot & SB stretch) 09/21/21: added: LTR, HS neural glide, piriformis stretch, trunk flexion stretch, pelvic realignment exercises, see HOs provided. LTG Duration 11/25/21 (09/21/21: Progressed ) Assessment Summary Assessment Pt improved LB tension forward trunk flexion, HS neural glide and LS ext added to HEP with better understanding postural alignment with use wall to allow decrease LB tension. Ed for continued stretching and posturing at home for carryover outside of PT. Has noticed improvement in community walking since PT. Physical Therapy Plan Frequency and Duration Frequency of Treatment 2x/Week Plan of Care Start Date 08/28/21 Plan of Care End Date 11/25/21 Therapeutic Interventions Therapeutic Interventions Aquatic Therapy,Gait Training, Home Exercise Program,Joint Mobilizations,Manual Therapy, Neuromuscular Re-education, Patient/Caregiver Education, Self-Care/Home Management,Soft Tissue Mobilization,Taping, Therapeutic Exercises Modalities Cold Pack/Ice Massage,Hot Packs Other Therapeutic Interventions Iontophoresis with 4mg/ml Dexamethasone with Sodium Phosphate. Next Visit Focus/Plan Next Note Type Treatment Note Next Visit Plan Assess response to sink and supine HEP stretches, Next tx : functional mobility and gentle strengthening, use of HP home vs CP. Check goals POC: Review issued R trunk rot & L SB stretch, review I/S HEP: sitting trunk flex stretch and issue handout. Might try K-tape to relax R hip ms if guarding persists. HEP: Piriformis stretch (R>L) , Hamstring/neural stretch (R> L). Check R IT Band. Check Provocation Tests: R Piriformis. Assess hip strength, (AB/AD/ ext), hip ext mobility ( iliopsoas). POC: Improve trunk mobility ( flex, R rot, L SB) & core stability; posture and painfree transfers; manual therapy (scar mob, R Ilipsoas & QL release, K-tape at R hip and R QL & abdomen, balance pelvis as needed; Gait training.
--- NOTE | 2021-10-02 09:00 | PT.OTN ---
Current Diagnoses Pain in right hip (10/02/21) Dorsalgia, unspecified (10/02/21) Muscle weakness (generalized) (10/02/21) Physical Therapy Treatment Note PT-OP-A Visit Information Start: 08/23/21 17:58 Freq: Status: Active Protocol: Document 10/02/21 08:17 SP (Rec: 10/02/21 09:01 SP [id number]) Out-Patient Physical Therapy Visit Information Visit Information Visit Type Treatment Note Visit Note 11visit next tx, due for PN. Visit Start Time 08:17 Visit Stop Time 09:00 Total Visit Minutes 42 Visit Number 10 Number of ANODIZER Visits 4 Evaluation Information Evaluation Date 08/28/21 Precautions Precautions Per intake form and pt: Osteoarthritis of R Hip, fingers & L toe (pre-surgery showed arthritis); DVT and 2 clots to R kidney and liver, and mild heart attack - in early 50's that pt attributes to being in bed a lot due sickness from Ulcerative colitis. 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 L TMJ dysfunction-couldn't open mouth x 1 (resolved on own) - 2 months ago. PT-OP-B Current Condition Start: 08/23/21 17:58 Freq: Status: Active Protocol: Document 08/28/21 09:52 LRN (Rec: 08/28/21 12:46 LRN [id number]) Current Condition History of Current Condition Onset Date R Hip pain 1 yr ago, Back pain ~ 6 months ago Current Complaints Deep R lateral hip pain, R LB/ SIJ pain History of Current Condition Started with R hip pain of insidious onset, recent x-rays showing arthritis. R low low back started to hurt because walking different. R Hip pain throbs, deep, Going up stairs painful, not painful descending, but fearful of falling. Denies falls on stairs. 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 Physical therapy for L hip 2017 for bursitis in [facility]. Had cortisone injections (2 in [place], 1 at [facility]), 3rd injection calmed the hip pain down to nothing, wouldn't even call it pain. Future Testing and Treatments Planned None. Developmental History Developmental History Mother of 2 children of vaginal births. Last difficulties due to bladder infections. 2 surgerical scars from hip to hip across abdomen due to 1) bladder lift at age 28-29, and 2) hyste age 40. Treatment Goals Patient/Caregiver Goals Pt goal with therapy: Walk daily to [facility] and back easily and without limp, Not have pain at night because hurting and disturbing sleep. Prior Functional Status Baseline Function- ADL's Independent Baseline Function- Mobility Independent Baseline Function- Work/School Walked 1-3 miles in neighborhoods/[place]. Baseline Function- Other No pain in R hip or R SIJ/LB previously. Current Functional Impairments (Reported) Functional Limitations- ADL's Interfers with sleeping, getting in/out of tub to shower (move slow and hangs onto sides), limited in bending over,. Balance has changed can't get in/out of tub without hanging onto sometihng. Denies difficulty with transfer up/down from commode. Functional Limitations- Mobility/Gait Interfers with walking, not able to walk to [place] park and back. Difficulty ascending stairs ( no difficulty descending stairs) Limps/Hobbles after prolonged sitting also after weeding. Personal Factors Other Personal Factors That May Effect OA R hip, Dx per pt of blood Therapy/Recovery clotting disorder. PT-OP-C Subjective Start: 08/23/21 17:58 Freq: Status: Active Protocol: Document 10/02/21 08:17 SP (Rec: 10/02/21 09:01 SP [id number]) OP-PT Subjective Patient Comments Patient Comments Pt reports didn't sleep more than 2 hrs last night, had to get up due to back pain and utilized HP, stretching, self massage as instructed but didn 't help diminishpain. Doing ok today. Was able to increase 1 .5 miles with little more incline than used to needing to stop partial way for breath recovery but stated better. PT-OP-J Posture/Palpation/Skin Start: 08/23/21 17:58 Freq: Status: Active Protocol: Document 08/31/21 09:57 LRN (Rec: 08/31/21 10:41 LRN [id number]) Palpation Assessment Location Leg length Palpation Location Ankles Palpation Details Supine L leg long > Long sit R leg long. PT-OP-K Range of Motion Start: 08/23/21 17:58 Freq: Status: Active Protocol: Document 08/28/21 09:52 LRN (Rec: 08/28/21 12:46 LRN [id number]) Lumbar Spine Range of Motion Lumbar Spine Active Degrees Testing Position Standing Flexion 40 Extension 12 Rotation Left 10 Rotation Right 5 Lateral Flexion Left 3 Lateral Flexion Right 5 ROM Limitations Pain Comments Trunk flexion is 40 deg's with hip flexion 25 deg's (true trunk flex is 15 deg's). Trunk extension is 12 deg's with hip ext 0 deg's (true trunk ext is 12 deg's). Hip Goniometric Range of Motion Hip Right Passive Hip ROM WFL No Testing Position Supine Straight Leg Raise 75 Abduction 40 Internal Rotation 20 External Rotation 70 Left Passive Testing Position Supine Straight Leg Raise 80 Abduction 40 Internal Rotation 25 External Rotation 75 PT-OP-L Special Tests Start: 08/23/21 17:58 Freq: Status: Active Protocol: Document 08/28/21 09:52 LRN (Rec: 08/28/21 12:46 LRN [id number]) Special Tests Lumbar Spine Special Tests Straight Leg Raise Test Results - bilaterally Comments 75 R, 80 L Compression Test Results neg Comments No increase pain, pt losses stability in L/S extension direction Standing Flexion Test Results neg Comments No change in R LBP Slump Test Results R LE: neg Comments No change in R LBP Hip Special Tests Stinchfield Resisted Hip Flexion Test Results R hip: Positive Comments Pain Log Roll Test Test Results neg Comments No change in pain WILLIAMS Test Results R hip: Positive Comments Pain deep in R hip joint. PT-OP-M Strength Start: 08/23/21 17:58 Freq: Status: Active Protocol: Document 08/28/21 09:52 LRN (Rec: 08/28/21 12:46 LRN [id number]) Trunk Strength Trunk Manual Muscle Testing Core Stabilization Loss of core stability with R LE mvmt. Hip Strength Hip Manual Muscle Testing Right Flexion (L2) 5 Normal External Rotation 5 Normal Internal Rotation 3- Fair- Left Flexion (L2) 4 Good External Rotation 3+ Fair+ Internal Rotation 3- Fair- PT-OP-Q Treatments Start: 08/23/21 17:58 Freq: Status: Active Protocol: Document 10/02/21 08:17 SP (Rec: 10/02/21 09:01 SP [id number]) Therapeutic Exercises Supine Exercises bug Supine Exercise Name added to HEP: LE modified ext, hands front stationary Side bilateral Reps/Minutes 5 reps x2 Comments cued PPT, good core fac response, tires quickly limit 3-5 reps ed LTR Supine Exercise Name reviewed HEP Side bilateral Reps/Minutes 3-5 sec hold x5 each side Comments good stretch response HS neural glide Supine Exercise Name reviewed HEP Side right Equipment Used towel behind thigh, w/ added AP Reps/Minutes X10 AP Comments good feedback painfree active HS stretch piriformis stretch Supine Exercise Name foot over opp knee- reviewed HEP Side bilateral Equipment Used towel held behind thigh Reps/Minutes 30 x2 Comments cues for set up and directioning PPT Supine Exercise Name PPT w/ TA engagement Reps/Minutes 10SH x 10 Comments good feedback performs at home as well Sitting Exercises STS Sitting Exercise Name added to HEP: w/ TA fac Resistance arms crossed over chest Equipment Used mesh chair Reps/Minutes x5 Comments cued posturing, hip hinge- little back involvement but gone w/core cues Trunk flex stretch Sitting Exercise Name Trunk FB to stretch for R QL Resistance HEP reviewed Reps/Minutes 15 sec x2 Comments good feedback stretch forward, not viering to side. Standing Exercises resisted rows, ext Standing Exercise Name added to HEP Side bilateral Resistance TB #2 Reps/Minutes x10 each Comments ed for set up and posturing during performance sink QL, ES stretch Standing Exercise Name discussion review, not performed today: HEP Resistance R>L Reps/Minutes 15 s hold x3 each side Comments states has performed at home, discussed use out for walk Self-Care/Home Management Treatment Education Patient Education Home Exercise Program Other Education added deady bug 3-5 reps, standing rows, shld ext w/ #2 TB. Discussed compliant with stretching HEP and use pillows between BLEs doing at home sleep for spinal/ pelvic alignment. PT-OP-R Modalities Start: 08/23/21 17:58 Freq: Status: Active Protocol: Document 10/02/21 08:17 SP (Rec: 10/02/21 09:01 SP [id number]) Hot Pack/Cold Pack Treatment MHP LB Location LB Patient Position Sitting Treatment Duration (minutes) 4 Patient Tolerance Good Comments Good feedback response to MHP for LB discomfort. States uses at home. PT-OP-T Assessment and Plan Start: 08/23/21 17:58 Freq: Status: Active Protocol: Document 10/02/21 08:17 SP (Rec: 10/02/21 09:01 SP [id number]) Physical Therapy Assessment Goals Four Impairment Decreased function. Impairment Function limited due to pain: LEFS score 50 (20-39% impaired, score 48-62) JOHN: 950 = 18/100 (1-19% impaired, score 1-19). Surveillance Camera Technician Goal (LTG) Improve function per LEFS score > 62 (1-19% impaired, score 63-79), or JOHN score 10 or less. LTG Duration 11/25/21 Three Impairment Decreased ambulatory ability due to R hip pain. Impairment Antalgic gait. Not able to walk for exercise due to R hip pain. Short Term Goal (STG) Pt will be able to tolerate walking 1/[address] [place] park and back prior to onset of pain causing antalgic gait. 09/25/21: MET GOAL: was able to walk to park and back with no pain, did sit on bench for rest. STG Duration 10/12/21 GOAL MET: 09/25/21 Senior Living Goal (LTG) Walk daily to [place] park and back easily and without limp. 09/25/21: Progressing: maybe little trunk wt shift/ limp when returned to /from park and seated rest, can't walk there, full loop and back yet. 10/02/21: progressing able walk 1.5 miles with incline only breath recovery stand rest needed. LTG Duration 11/25/21 progressin10/02/21 Two Impairment R hip pain (6-7/10) & R LBP (3 -4/10) Impairment Diffculty sleeping due to R hip and R low back pain. Short Term Goal (STG) Pt will be educated in best positions for nighttime sleep to minimize R hip/R LB pain. STG Duration 08/31/21 (09/04/21; MET GOAL) Surveillance Camera Technician Goal (LTG) Pt will be able to sleep at night in a comfortable position without disturbing sleep due to pain. 09/28/21: progressing in 7 day incriment waking up 3 nights due to back pain. She reports takes Tylenol pm nightly to assist sleep. 10/02/21: progressing: was doing well but last night had back pain unableto get relief. LTG Duration 11/25/21 progressing 10/02/21 One Impairment Lacks appropriate HEP Short Term Goal (STG) Pt will be educated in proper standing posture to minimize LB strain. 09/28/21: progressing: added wall posture for awareness in trunk alignment then away from wall. STG Duration 09/14/21 progressing 09/28/21 Senior Living Goal (LTG) Pt will be independent with a self care HEP to manage her R hip/LBP. (08/31/21: I/S pt in TA tightening for core stability) (09/04/21: I/S pt in trunk flex stretch in sitting) (09/14/21: HEP: Trunk rot & SB stretch) 09/21/21: added: LTR, HS neural glide, piriformis stretch, trunk flexion stretch, pelvic realignment exercises, see HOs provided. 10/02/21: added , standing rows, shld ext w/ #2 TB, STS. LTG Duration 11/25/21 (10/02/21: Progressed) Assessment Summary Assessment Pt responded well to HEP review, added bug limited reps due to tires quickly, no pain. Pt reported little dizzy walking over to do standing exercise after supine activities. She reported didnt' take her BP meds or eat before left only coffee. BP 134/91 seated with recovery no dizziness. Pt reports very tired from lack of sleep, MHP felt good at end tx. Physical Therapy Plan Frequency and Duration Frequency of Treatment 2x/Week Plan of Care Start Date 08/28/21 Plan of Care End Date 11/25/21 Therapeutic Interventions Therapeutic Interventions Aquatic Therapy,Gait Training, Home Exercise Program,Joint Mobilizations,Manual Therapy, Neuromuscular Re-education, Patient/Caregiver Education, Self-Care/Home Management,Soft Tissue Mobilization,Taping, Therapeutic Exercises Modalities Cold Pack/Ice Massage,Hot Packs Other Therapeutic Interventions Iontophoresis with 4mg/ml Dexamethasone with Sodium Phosphate. Next Visit Focus/Plan Next Note Type Treatment Note Next Visit Plan Assess response to sink and supine HEP stretches, Next tx : functional mobility and gentle strengthening, use of HP home vs CP. Check goals POC: Review issued R trunk rot & L SB stretch, review I/S HEP: sitting trunk flex stretch and issue handout. Might try K-tape to relax R hip ms if guarding persists. HEP: Piriformis stretch (R>L) , Hamstring/neural stretch (R> L). Check R IT Band. Check Provocation Tests: R Piriformis. Assess hip strength, (AB/AD/ ext), hip ext mobility ( iliopsoas). POC: Improve trunk mobility ( flex, R rot, L SB) & core stability; posture and painfree transfers; manual therapy (scar mob, R Ilipsoas & QL release, K-tape at R hip and R QL & abdomen, balance pelvis as needed; Gait training.
--- NOTE | 2021-10-04 13:17 | PT.OTN ---
Current Diagnoses Pain in right hip (10/04/21) Dorsalgia, unspecified (10/04/21) Muscle weakness (generalized) (10/04/21) Physical Therapy Treatment Note PT-OP-A Visit Information Start: 08/23/21 17:58 Freq: Status: Active Protocol: Document 10/04/21 11:23 LRN (Rec: 10/04/21 12:15 LRN [id number]) Out-Patient Physical Therapy Visit Information Visit Information Visit Type Progress Note Visit Start Time 11:23 Visit Stop Time 12:02 Total Visit Minutes 39 Visit Number 11 Evaluation Information Evaluation Date 08/28/21 Precautions Precautions Per intake form and pt: Osteoarthritis of R Hip, fingers & L toe (pre-surgery showed arthritis); DVT and 2 clots to R kidney and liver, and mild heart attack - in early 50's that pt attributes to being in bed a lot due sickness from Ulcerative colitis. 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 L TMJ dysfunction-couldn't open mouth x 1 (resolved on own) - 2 months ago. PT-OP-B Current Condition Start: 08/23/21 17:58 Freq: Status: Active Protocol: Document 08/28/21 09:52 LRN (Rec: 08/28/21 12:46 LRN [id number]) Current Condition History of Current Condition Onset Date R Hip pain 1 yr ago, Back pain ~ 6 months ago Current Complaints Deep R lateral hip pain, R LB/ SIJ pain History of Current Condition Started with R hip pain of insidious onset, recent x-rays showing arthritis. R low low back started to hurt because walking different. R Hip pain throbs, deep, Going up stairs painful, not painful descending, but fearful of falling. Denies falls on stairs. 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 Physical therapy for L hip 2017 for bursitis in [facility]. Had cortisone injections (2 in [place], 1 at [facility]), 3rd injection calmed the hip pain down to nothing, wouldn't even call it pain. Future Testing and Treatments Planned None. Developmental History Developmental History Mother of 2 children of vaginal births. Last difficulties due to bladder infections. 2 surgerical scars from hip to hip across abdomen due to 1) bladder lift at age 28-29, and 2) hyste age 40. Treatment Goals Patient/Caregiver Goals Pt goal with therapy: Walk daily to [place] park and back easily and without limp, Not have pain at night because hurting and disturbing sleep. Prior Functional Status Baseline Function- ADL's Independent Baseline Function- Mobility Independent Baseline Function- Work/School Walked 1-3 miles in neighborhoods/[place]. Baseline Function- Other No pain in R hip or R SIJ/LB previously. Current Functional Impairments (Reported) Functional Limitations- ADL's Interfers with sleeping, getting in/out of tub to shower (move slow and hangs onto sides), limited in bending over,. Balance has changed can't get in/out of tub without hanging onto sometihng. Denies difficulty with transfer up/down from commode. Functional Limitations- Mobility/Gait Interfers with walking, not able to walk to [place] park and back. Difficulty ascending stairs ( no difficulty descending stairs) Limps/Hobbles after prolonged sitting also after weeding. Personal Factors Other Personal Factors That May Effect OA R hip, Dx per pt of blood Therapy/Recovery clotting disorder. PT-OP-C Subjective Start: 08/23/21 17:58 Freq: Status: Active Protocol: Document 10/04/21 11:23 LRN (Rec: 10/04/21 12:15 LRN [id number]) OP-PT Subjective Patient Comments Patient Comments States no change in last 2 days. Pt states she hasn't done her HEP today. Pt prefers no aquatic therapy due to fear of water. States her hip is not bothering her anymore and is able to do the stairs normal, not one at a time. Started going for walks again, 1.5 3 days ago on incline and level. Patient Questionnaires Oswestry Low Back Index Oswestry Score 10 Oswestry Impairment 1 to 19% Impaired (Score 1-19) OP-PT Pain Assessment Location Low Back Pain Location Details R LB Intensity 3 Scale Used Numeric (0 - 10) PT-OP-J Posture/Palpation/Skin Start: 08/23/21 17:58 Freq: Status: Active Protocol: Document 08/31/21 09:57 LRN (Rec: 08/31/21 10:41 LRN [id number]) Palpation Assessment Location Leg length Palpation Location Ankles Palpation Details Supine L leg long > Long sit R leg long. PT-OP-K Range of Motion Start: 08/23/21 17:58 Freq: Status: Active Protocol: Document 08/28/21 09:52 LRN (Rec: 08/28/21 12:46 LRN [id number]) Lumbar Spine Range of Motion Lumbar Spine Active Degrees Testing Position Standing Flexion 40 Extension 12 Rotation Left 10 Rotation Right 5 Lateral Flexion Left 3 Lateral Flexion Right 5 ROM Limitations Pain Comments Trunk flexion is 40 deg's with hip flexion 25 deg's (true trunk flex is 15 deg's). Trunk extension is 12 deg's with hip ext 0 deg's (true trunk ext is 12 deg's). Hip Goniometric Range of Motion Hip Right Passive Hip ROM WFL No Testing Position Supine Straight Leg Raise 75 Abduction 40 Internal Rotation 20 External Rotation 70 Left Passive Testing Position Supine Straight Leg Raise 80 Abduction 40 Internal Rotation 25 External Rotation 75 PT-OP-L Special Tests Start: 08/23/21 17:58 Freq: Status: Active Protocol: Document 08/28/21 09:52 LRN (Rec: 08/28/21 12:46 LRN [id number]) Special Tests Lumbar Spine Special Tests Straight Leg Raise Test Results - bilaterally Comments 75 R, 80 L Compression Test Results neg Comments No increase pain, pt losses stability in L/S extension direction Standing Flexion Test Results neg Comments No change in R LBP Slump Test Results R LE: neg Comments No change in R LBP Hip Special Tests Stinchfield Resisted Hip Flexion Test Results R hip: Positive Comments Pain Log Roll Test Test Results neg Comments No change in pain WILLIAMS Test Results R hip: Positive Comments Pain deep in R hip joint. PT-OP-M Strength Start: 08/23/21 17:58 Freq: Status: Active Protocol: Document 10/04/21 11:23 LRN (Rec: 10/04/21 12:15 LRN [id number]) Hip Strength Hip Manual Muscle Testing Right Flexion (L2) 5 Normal Extension (S1) 5 Normal Abduction 3 Fair Adduction 2 Poor External Rotation 5 Normal Internal Rotation 3 Fair Left Flexion (L2) 4 Good Extension (S1) 5 Normal Abduction 3 Fair Adduction 5 Normal External Rotation 3+ Fair+ Internal Rotation 3 Fair PT-OP-Q Treatments Start: 08/23/21 17:58 Freq: Status: Active Protocol: Document 10/04/21 11:23 LRN (Rec: 10/04/21 12:15 LRN [id number]) Therapeutic Exercises Supine Exercises bug Supine Exercise Name added to HEP: LE modified ext, hands front stationary Side bilateral Reps/Minutes 8 reps x2 Comments Extra time for positioning/ proper ex, cued PPT/and mvmt LTR Supine Exercise Name LTR (HEP) Side bilateral Reps/Minutes 3-5 sec hold x5 each side Comments Pt shows good understanding. HS neural glide Supine Exercise Name reviewed HEP Side right Equipment Used towel behind thigh, w/ added AP Reps/Minutes X10 AP Comments good feedback painfree active HS stretch piriformis stretch Supine Exercise Name foot over opp knee- (HEP) Side bilateral Equipment Used towel held behind thigh Reps/Minutes 30 x2 Comments cue for directioning Prone Exercises Hip Ext Prone Exercise Name Hip Ext Side bilateral Comments MMT taken Sidelying Exercises Hip AB/AD Sidelying Exercise Name Hip AB/AD Side bilateral Comments MMT taken Sitting Exercises Trunk Rot Sitting Exercise Name Trunk Rot stretch Side bilateral Reps/Minutes 10s hold x5 Trunk flex stretch Sitting Exercise Name Trunk FB to stretch for R QL Resistance HEP reviewed Reps/Minutes 10 sec x 10 Comments good feedback stretch forward, not viering to side. Self-Care/Home Management Treatment Education Patient Education Posture Other Education Discussed & educated pt in proper posture in sit, stand and presures in various positions. Issued and reviewed handouts for Cherry to safe movement. Activities Self-Care/Home Management Activities Verbally reviewed LB sink stretch. PT-OP-R Modalities Start: 08/23/21 17:58 Freq: Status: Active Protocol: Document 10/02/21 08:17 SP (Rec: 10/02/21 09:01 SP [id number]) Hot Pack/Cold Pack Treatment MHP LB Location LB Patient Position Sitting Treatment Duration (minutes) 4 Patient Tolerance Good Comments Good feedback response to MHP for LB discomfort. States uses at home. PT-OP-T Assessment and Plan Start: 08/23/21 17:58 Freq: Status: Active Protocol: Document 10/04/21 11:23 LRN (Rec: 10/04/21 12:15 LRN [id number]) Physical Therapy Assessment Rehab Potential Rehabilitation Potential Good Evaluation Complexity Number of Personal Factors/Comorbidities 1-2 Number of Body Systems Impaired 4 or More Clinical Presentation at Evaluation Evolving Impairments Impairments Gait,Pain,Posture,ROM,Strength Goals Four Impairment Decreased function. Impairment Function limited due to pain: LEFS score 50 (20-39% impaired, score 48-62) JOHN: 50 = 18/100 (1-19% impaired, score 1-19). [employer] Goal (LTG) Improve function per LEFS score > 62 (1-19% impaired, score 63-79), or JOHN score 10 or less. (10/04/21: JOHN score is 10)) LTG Duration 11/25/21 (10/04/21: MET GOAL) Three Impairment Decreased ambulatory ability due to R hip pain. Impairment Antalgic gait. Not able to walk for exercise due to R hip pain. Short Term Goal (STG) Pt will be able to tolerate walking 1/[address] [place] park and back prior to onset of pain causing antalgic gait. 09/25/21: MET GOAL: was able to walk to park and back with no pain, did sit on bench for rest. STG Duration 10/12/21 (GOAL MET: 09/25/21) [employer] Goal (LTG) Walk daily to [place] park and back easily and without limp. 09/25/21: Progressing: maybe little trunk wt shift/ limp when returned to /from park and seated rest, can't walk there, full loop and back yet. 10/02/21: progressing able walk 1.5 miles with incline only breath recovery stand rest needed. (10/04/21: Able to walk to park and back). LTG Duration 11/25/21 (progressin) Two Impairment R hip pain (6-7) & R LBP (3 -4/10) Impairment Diffculty sleeping due to R hip and R low back pain. Short Term Goal (STG) Pt will be educated in best positions for nighttime sleep to minimize R hip/R LB pain. STG Duration 08/31/21 (09/04/21; MET GOAL) Fdc Goal (LTG) Pt will be able to sleep at night in a comfortable position without disturbing sleep due to pain. 09/28/21: progressing in 7 day incriment waking up 3 nights due to back pain. She reports takes Tylenol pm nightly to assist sleep. 10/02/21: progressing: was doing well but last night had back pain unable to get relief . (10/04/21: Has R LBP most notably when turning, NO R hip pain). LTG Duration 11/25/21 (10/04/21: progressing) One Impairment Lacks appropriate HEP Short Term Goal (STG) Pt will be educated in proper standing posture to minimize LB strain. 09/28/21: progressing: added wall posture for awareness in trunk alignment then away from wall. STG Duration 09/14/21 progressing 09/28/21 [employer] Goal (LTG) Pt will be independent with a self care HEP to manage her R hip/LBP. (08/31/21: I/S pt in TA tightening for core stability) (09/04/21: I/S pt in trunk flex stretch in sitting) (09/14/21: HEP: Trunk rot & SB stretch) 09/21/21: added: LTR, HS neural glide, piriformis stretch, trunk flexion stretch, pelvic realignment exercises, see HOs provided. 10/02/21: added , standing rows, shld ext w/ #2 TB, STS. LTG Duration 11/25/21 (10/02/21: Progressed) Assessment Summary Assessment Pt is slowly improving with resolution of R hip pain and centralization of pain to the low back. The pt has just started core strengthening stabilization ex's and is weak , requiring more strengthening . She appears to have a good understanding of her LB sink stretch, sup and sitting trunk /hip stretches, but needed review for proper form and execution of stretches. Pt weakness in hip's. Pt will benefit from further physical therapy for core strengthening to return her to prior function and improved tolerance to activities. Physical Therapy Plan Frequency and Duration Frequency of Treatment 2x/Week Plan of Care Start Date 08/28/21 Plan of Care End Date 11/25/21 Therapeutic Interventions Therapeutic Interventions Gait Training,Home Exercise Program,Joint Mobilizations, Manual Therapy,Neuromuscular Re-education,Patient/Caregiver Education,Self-Care/Home Management,Soft Tissue Mobilization,Taping, Therapeutic Exercises Modalities Cold Pack/Ice Massage,Hot Packs Other Therapeutic Interventions Iontophoresis with 4mg/ml Dexamethasone with Sodium Phosphate. Next Visit Focus/Plan Next Note Type Treatment Note Next Visit Plan Next tx: functional mobility and gentle strengthening. Check R IT Band. End MH only due to hx of blood clots. HEP: Add ex's for hip strengthening: R AB/AD/IR; L AB/ER/IR. Assess: hip ext mobility ( iliopsoas). POC: Brent flexion for LBP due to DDD in lower lumbar spine. Improve trunk mobility (flex, R rot, L SB) & core stability; manual therapy (scar mob, R Ilipsoas & QL release, K-tape ?abdomen, balance pelvis as needed; Gait training.
--- NOTE | 2021-10-09 10:10 | PT.OTN ---
Current Diagnoses Pain in right hip (10/09/21) Dorsalgia, unspecified (10/09/21) Muscle weakness (generalized) (10/09/21) Physical Therapy Treatment Note PT-OP-A Visit Information Start: 08/23/21 17:58 Freq: Status: Active Protocol: Document 10/09/21 09:07 LRN (Rec: 10/09/21 10:08 LRN [id number]) Out-Patient Physical Therapy Visit Information Visit Information Visit Type Treatment Note Visit Start Time 09:07 Visit Stop Time 09:51 Total Visit Minutes 44 Visit Number 12 Evaluation Information Evaluation Date 08/28/21 Precautions Precautions Per intake form and pt: Osteoarthritis of R Hip, fingers & L toe (pre-surgery showed arthritis); DVT and 2 clots to R kidney and liver, and mild heart attack - in early 50's that pt attributes to being in bed a lot due sickness from Ulcerative colitis. 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 L TMJ dysfunction-couldn't open mouth x 1 (resolved on own) - 2 months ago. PT-OP-B Current Condition Start: 08/23/21 17:58 Freq: Status: Active Protocol: Document 08/28/21 09:52 LRN (Rec: 08/28/21 12:46 LRN [id number]) Current Condition History of Current Condition Onset Date R Hip pain 1 yr ago, Back pain ~ 6 months ago Current Complaints Deep R lateral hip pain, R LB/ SIJ pain History of Current Condition Started with R hip pain of insidious onset, recent x-rays showing arthritis. R low low back started to hurt because walking different. R Hip pain throbs, deep, Going up stairs painful, not painful descending, but fearful of falling. Denies falls on stairs. 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 Physical therapy for L hip 2017 for bursitis in [facility]. Had cortisone injections (2 in [place], 1 at [facility]), 3rd injection calmed the hip pain down to nothing, wouldn't even call it pain. Future Testing and Treatments Planned None. Developmental History Developmental History Mother of 2 children of vaginal births. Last difficulties due to bladder infections. 2 surgerical scars from hip to hip across abdomen due to 1) bladder lift at age 28-29, and 2) hyste age 40. Treatment Goals Patient/Caregiver Goals Pt goal with therapy: Walk daily to [place] park and back easily and without limp, Not have pain at night because hurting and disturbing sleep. Prior Functional Status Baseline Function- ADL's Independent Baseline Function- Mobility Independent Baseline Function- Work/School Walked 1-3 miles in neighborhoods/[place]. Baseline Function- Other No pain in R hip or R SIJ/LB previously. Current Functional Impairments (Reported) Functional Limitations- ADL's Interfers with sleeping, getting in/out of tub to shower (move slow and hangs onto sides), limited in bending over,. Balance has changed can't get in/out of tub without hanging onto sometihng. Denies difficulty with transfer up/down from commode. Functional Limitations- Mobility/Gait Interfers with walking, not able to walk to [place] park and back. Difficulty ascending stairs ( no difficulty descending stairs) Limps/Hobbles after prolonged sitting also after weeding. Personal Factors Other Personal Factors That May Effect OA R hip, Dx per pt of blood Therapy/Recovery clotting disorder. PT-OP-C Subjective Start: 08/23/21 17:58 Freq: Status: Active Protocol: Document 10/09/21 09:07 LRN (Rec: 10/09/21 10:08 LRN [id number]) OP-PT Subjective Patient Comments Patient Comments No change. Past 2 wks, LBP adiates into R side, intermittently, hip is doing really well. Pt will be leaving the are on 11/03/21, last PT appt 10/01/21. PT-OP-J Posture/Palpation/Skin Start: 08/23/21 17:58 Freq: Status: Active Protocol: Document 08/31/21 09:57 LRN (Rec: 08/31/21 10:41 LRN [id number]) Palpation Assessment Location Leg length Palpation Location Ankles Palpation Details Supine L leg long > Long sit R leg long. PT-OP-K Range of Motion Start: 08/23/21 17:58 Freq: Status: Active Protocol: Document 08/28/21 09:52 LRN (Rec: 08/28/21 12:46 LRN [id number]) Lumbar Spine Range of Motion Lumbar Spine Active Degrees Testing Position Standing Flexion 40 Extension 12 Rotation Left 10 Rotation Right 5 Lateral Flexion Left 3 Lateral Flexion Right 5 ROM Limitations Pain Comments Trunk flexion is 40 deg's with hip flexion 25 deg's (true trunk flex is 15 deg's). Trunk extension is 12 deg's with hip ext 0 deg's (true trunk ext is 12 deg's). Hip Goniometric Range of Motion Hip Right Passive Hip ROM WFL No Testing Position Supine Straight Leg Raise 75 Abduction 40 Internal Rotation 20 External Rotation 70 Left Passive Testing Position Supine Straight Leg Raise 80 Abduction 40 Internal Rotation 25 External Rotation 75 PT-OP-L Special Tests Start: 08/23/21 17:58 Freq: Status: Active Protocol: Document 08/28/21 09:52 LRN (Rec: 08/28/21 12:46 LRN [id number]) Special Tests Lumbar Spine Special Tests Straight Leg Raise Test Results - bilaterally Comments 75 R, 80 L Compression Test Results neg Comments No increase pain, pt losses stability in L/S extension direction Standing Flexion Test Results neg Comments No change in R LBP Slump Test Results R LE: neg Comments No change in R LBP Hip Special Tests [facility] Resisted Hip Flexion Test Results R hip: Positive Comments Pain Log Roll Test Test Results neg Comments No change in pain WILLIAMS Test Results R hip: Positive Comments Pain deep in R hip joint. PT-OP-M Strength Start: 08/23/21 17:58 Freq: Status: Active Protocol: Document 10/04/21 11:23 LRN (Rec: 10/04/21 12:15 LRN [id number]) Hip Strength Hip Manual Muscle Testing Right Flexion (L2) 5 Normal Extension (S1) 5 Normal Abduction 3 Fair Adduction 2 Poor External Rotation 5 Normal Internal Rotation 3 Fair Left Flexion (L2) 4 Good Extension (S1) 5 Normal Abduction 3 Fair Adduction 5 Normal External Rotation 3+ Fair+ Internal Rotation 3 Fair PT-OP-Q Treatments Start: 08/23/21 17:58 Freq: Status: Active Protocol: Document 10/09/21 09:07 LRN (Rec: 10/09/21 10:08 LRN [id number]) Therapeutic Exercises Supine Exercises bug Supine Exercise Name added to HEP: LE modified ext, hands front stationary Side bilateral Reps/Minutes 8 reps x2 Comments Extra time for positioning/ proper ex, cued PPT/and mvmt LTR Supine Exercise Name LTR (HEP) Side bilateral Reps/Minutes 3-5 sec hold x5 each side Comments Cuing for equal mvmvt side to side piriformis stretch Supine Exercise Name foot over opp knee- (HEP) Side bilateral Equipment Used towel held behind thigh Reps/Minutes 30 x2 Comments cue for directioning R KTC stretch Supine Exercise Name R KTC stretch Reps/Minutes 3' Comments Cuing for positioning: L leg straight Manual Therapy Treatment Soft Tissue Mobilization R Piriformis Body Location R Piriformis < Upper gluteals Mobilization Type Strumming,Sustained Pressure Intensity/Depth Moderate Body Position Prone Comments R piriformis & upper gluteals very tight. R IT Band Body Location R IT Band Body Position Supine Comments No STM due to no tenderness. R Trunk Body Location R QL Mobilization Type Strumming,Sustained Pressure Intensity/Depth Moderate Body Position Prone Comments Mant Manual Traction Lumbar Details Gentle traction with belt Body Position Hooklying Reps/Duration 4' Self-Care/Home Management Treatment Education Patient Education Body Mechanics Other Education Review of proper sup<>sit transfer and proper body mechanics for picking purse off the floor. PT-OP-R Modalities Start: 08/23/21 17:58 Freq: Status: Active Protocol: Document 10/02/21 08:17 SP (Rec: 10/02/21 09:01 SP [id number]) Hot Pack/Cold Pack Treatment MHP LB Location LB Patient Position Sitting Treatment Duration (minutes) 4 Patient Tolerance Good Comments Good feedback response to MHP for LB discomfort. States uses at home. PT-OP-T Assessment and Plan Start: 08/23/21 17:58 Freq: Status: Active Protocol: Document 10/09/21 09:07 LRN (Rec: 10/09/21 10:08 LRN [id number]) Physical Therapy Assessment Goals Four Impairment Decreased function. Impairment Function limited due to pain: LEFS score 50 (20-39% impaired, score 48-62) JOHN: 9/50 = 18/100 (1-19% impaired, score 1-19). Clothing Man Goal (LTG) Improve function per LEFS score > 62 (1-19% impaired, score 63-79), or JOHN score 10 or less. (10/04/21: JOHN score is 10)) LTG Duration 11/25/21 (10/04/21: MET GOAL) Three Impairment Decreased ambulatory ability due to R hip pain. Impairment Antalgic gait. Not able to walk for exercise due to R hip pain. Short Term Goal (STG) Pt will be able to tolerate walking 1/[address] to [place] park and back prior to onset of pain causing antalgic gait. 09/25/21: MET GOAL: was able to walk to park and back with no pain, did sit on bench for rest. STG Duration 10/12/21 (GOAL MET: 09/25/21) Fpc Goal (LTG) Walk daily to [place] park and back easily and without limp. 09/25/21: Progressing: maybe little trunk wt shift/ limp when returned to /from park and seated rest, can't walk there, full loop and back yet. 10/02/21: progressing able walk 1.5 miles with incline only breath recovery stand rest needed. (10/04/21: Able to walk to park and back). LTG Duration 11/25/21 (progressin) Two Impairment R hip pain (6-7) & R LBP (3 -05/27) Impairment Diffculty sleeping due to R hip and R low back pain. Short Term Goal (STG) Pt will be educated in best positions for nighttime sleep to minimize R hip/R LB pain. STG Duration 08/31/21 (09/04/21; MET GOAL) Fpc Goal (LTG) Pt will be able to sleep at night in a comfortable position without disturbing sleep due to pain. 09/28/21: progressing in 7 day incriment waking up 3 nights due to back pain. She reports takes Tylenol pm nightly to assist sleep. 10/02/21: progressing: was doing well but last night had back pain unable to get relief . (10/04/21: Has R LBP most notably when turning, NO R hip pain). LTG Duration 11/25/21 (10/04/21: progressing) One Impairment Lacks appropriate HEP Short Term Goal (STG) Pt will be educated in proper standing posture to minimize LB strain. 09/28/21: progressing: added wall posture for awareness in trunk alignment then away from wall. STG Duration 09/14/21 progressing 09/28/21 Clothing Man Goal (LTG) Pt will be independent with a self care HEP to manage her R hip/LBP. (08/31/21: I/S pt in TA tightening for core stability) (09/04/21: I/S pt in trunk flex stretch in sitting) (09/14/21: HEP: Trunk rot & SB stretch) 09/21/21: added: LTR, HS neural glide, piriformis stretch, trunk flexion stretch, pelvic realignment exercises, see HOs provided. 10/02/21: added , standing rows, shld ext w/ #2 TB, STS. LTG Duration 11/25/21 (10/02/21: Progressed) Assessment Summary Assessment R LB radiating into lateral trunk probably neural related to L/S. Brent Pain and tightness in R lumbar QL/ Paraspinals relieved with manual gentle lumbar traction. Pain not relieved with manual therapy with no pillow under abdomen, although pt felt pillow unnecessary. Physical Therapy Plan Frequency and Duration Frequency of Treatment 2x/Week Plan of Care Start Date 08/28/21 Plan of Care End Date 11/25/21 Next Visit Focus/Plan Next Note Type Treatment Note Next Visit Plan PT DC on 10/01/21. Next tx: LEFS Q, Review proper stand/sit posture with handout issued if needed (STG #1), progress functional mobility/core stability & gait training, Brent flexion ( due to DDD in lower lumbar spine), and gentle core strengthening. Assess: hip ext mobility ( iliopsoas). HEP: Add ex's for hip strengthening: R AB/AD/IR; L AB/ER/IR as tolerated. POC: Improve trunk mobility (flex, R rot, L SB). Manual therapy (scar mob, R Ilipsoas & QL release, ? K-tape abdomen , balance pelvis as needed. End MH only as needed due to hx of blood clots.
--- NOTE | 2021-10-11 09:47 | PT.OTN ---
Current Diagnoses Pain in right hip (10/11/21) Dorsalgia, unspecified (10/11/21) Muscle weakness (generalized) (10/11/21) Physical Therapy Treatment Note PT-OP-A Visit Information Start: 08/23/21 17:58 Freq: Status: Active Protocol: Document 10/11/21 09:06 SP (Rec: 10/11/21 09:58 SP [id number]) Out-Patient Physical Therapy Visit Information Visit Information Visit Type Treatment Note Visit Start Time 09:04 Visit Stop Time 09:47 Total Visit Minutes 43 Visit Number 13 Number of DECKHAND ENGINEER Visits 1 Evaluation Information Evaluation Date 08/28/21 Precautions Precautions Per intake form and pt: Osteoarthritis of R Hip, fingers & L toe (pre-surgery showed arthritis); DVT and 2 clots to R kidney and liver, and mild heart attack - in early 50's that pt attributes to being in bed a lot due sickness from Ulcerative colitis. 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 L TMJ dysfunction-couldn't open mouth x 1 (resolved on own) - 2 months ago. PT-OP-B Current Condition Start: 08/23/21 17:58 Freq: Status: Active Protocol: Document 08/28/21 09:52 LRN (Rec: 08/28/21 12:46 LRN [id number]) Current Condition History of Current Condition Onset Date R Hip pain 1 yr ago, Back pain ~ 6 months ago Current Complaints Deep R lateral hip pain, R LB/ SIJ pain History of Current Condition Started with R hip pain of insidious onset, recent x-rays showing arthritis. R low low back started to hurt because walking different. R Hip pain throbs, deep, Going up stairs painful, not painful descending, but fearful of falling. Denies falls on stairs. 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 Physical therapy for L hip 2017 for bursitis in [facility]. Had cortisone injections (2 in [place], 1 at [facility]), 3rd injection calmed the hip pain down to nothing, wouldn't even call it pain. Future Testing and Treatments Planned None. Developmental History Developmental History Mother of 2 children of vaginal births. Last difficulties due to bladder infections. 2 surgerical scars from hip to hip across abdomen due to 1) bladder lift at age 28-29, and 2) hyste age 40. Treatment Goals Patient/Caregiver Goals Pt goal with therapy: Walk daily to [place] park and back easily and without limp, Not have pain at night because hurting and disturbing sleep. Prior Functional Status Baseline Function- ADL's Independent Baseline Function- Mobility Independent Baseline Function- Work/School Walked 1-3 miles in neighborhoods/[place]. Baseline Function- Other No pain in R hip or R SIJ/LB previously. Current Functional Impairments (Reported) Functional Limitations- ADL's Interfers with sleeping, getting in/out of tub to shower (move slow and hangs onto sides), limited in bending over,. Balance has changed can't get in/out of tub without hanging onto sometihng. Denies difficulty with transfer up/down from commode. Functional Limitations- Mobility/Gait Interfers with walking, not able to walk to [place] park and back. Difficulty ascending stairs ( no difficulty descending stairs) Limps/Hobbles after prolonged sitting also after weeding. Personal Factors Other Personal Factors That May Effect OA R hip, Dx per pt of blood Therapy/Recovery clotting disorder. PT-OP-C Subjective Start: 08/23/21 17:58 Freq: Status: Active Protocol: Document 10/11/21 09:06 SP (Rec: 10/11/21 09:58 SP [id number]) OP-PT Subjective Patient Comments Patient Comments Pt stated LB has been better: slept well and feeling good today. PT-OP-J Posture/Palpation/Skin Start: 08/23/21 17:58 Freq: Status: Active Protocol: Document 08/31/21 09:57 LRN (Rec: 08/31/21 10:41 LRN [id number]) Palpation Assessment Location Leg length Palpation Location Ankles Palpation Details Supine L leg long > Long sit R leg long. PT-OP-K Range of Motion Start: 08/23/21 17:58 Freq: Status: Active Protocol: Document 08/28/21 09:52 LRN (Rec: 08/28/21 12:46 LRN [id number]) Lumbar Spine Range of Motion Lumbar Spine Active Degrees Testing Position Standing Flexion 40 Extension 12 Rotation Left 10 Rotation Right 5 Lateral Flexion Left 3 Lateral Flexion Right 5 ROM Limitations Pain Comments Trunk flexion is 40 deg's with hip flexion 25 deg's (true trunk flex is 15 deg's). Trunk extension is 12 deg's with hip ext 0 deg's (true trunk ext is 12 deg's). Hip Goniometric Range of Motion Hip Right Passive Hip ROM WFL No Testing Position Supine Straight Leg Raise 75 Abduction 40 Internal Rotation 20 External Rotation 70 Left Passive Testing Position Supine Straight Leg Raise 80 Abduction 40 Internal Rotation 25 External Rotation 75 PT-OP-L Special Tests Start: 08/23/21 17:58 Freq: Status: Active Protocol: Document 08/28/21 09:52 LRN (Rec: 08/28/21 12:46 LRN [id number]) Special Tests Lumbar Spine Special Tests Straight Leg Raise Test Results - bilaterally Comments 75 R, 80 L Compression Test Results neg Comments No increase pain, pt losses stability in L/S extension direction Standing Flexion Test Results neg Comments No change in R LBP Slump Test Results R LE: neg Comments No change in R LBP Hip Special Tests [facility] Resisted Hip Flexion Test Results R hip: Positive Comments Pain Log Roll Test Test Results neg Comments No change in pain WILLIAMS Test Results R hip: Positive Comments Pain deep in R hip joint. PT-OP-M Strength Start: 08/23/21 17:58 Freq: Status: Active Protocol: Document 10/04/21 11:23 LRN (Rec: 10/04/21 12:15 LRN [id number]) Hip Strength Hip Manual Muscle Testing Right Flexion (L2) 5 Normal Extension (S1) 5 Normal Abduction 3 Fair Adduction 2 Poor External Rotation 5 Normal Internal Rotation 3 Fair Left Flexion (L2) 4 Good Extension (S1) 5 Normal Abduction 3 Fair Adduction 5 Normal External Rotation 3+ Fair+ Internal Rotation 3 Fair PT-OP-Q Treatments Start: 08/23/21 17:58 Freq: Status: Active Protocol: Document 10/11/21 09:06 SP (Rec: 10/11/21 09:58 SP [id number]) Therapeutic Exercises Supine Exercises bug Supine Exercise Name reviewed HEP: UE/ LE ext alternate, opp UE touches knee Side bilateral Reps/Minutes x15 Comments improved form, painfree piriformis stretch Supine Exercise Name HEP reviewed Side bilateral Equipment Used grasped knee to opp chest Reps/Minutes 30 x2 Comments good stretch on R, no stretch L R KTC stretch Supine Exercise Name KTC stretch w/ knee straight Side right Reps/Minutes 30 x3 Comments good HS stretch Prone Exercises Hip Ext Prone Exercise Name Hip Ext: added to HEP Side bilateral Equipment Used pillows under pelvis Reps/Minutes 2 s hold x10 Comments cued TA awareness, sheron lift, no LB recruitment Sitting Exercises Trunk flex stretch Sitting Exercise Name LS flexion 1. stretch 2. resisted flexion added to HEP Resistance TB #3 Reps/Minutes stretch 30 x3, x10 trunk flexion Comments good feedback TA fac Standing Exercises resisted rows, ext Standing Exercise Name reviewed HEP Side bilateral Resistance TB #2>#3 Equipment Used anchored in door Reps/Minutes x10 each Comments ed for set up and posturing during performance Other Exercises quadruped Other Exercise Name Trialed: UE/ LE slide into ext Comments LB discomfort, challenged with stability engagement- DC PT-OP-R Modalities Start: 08/23/21 17:58 Freq: Status: Active Protocol: Document 10/02/21 08:17 SP (Rec: 10/02/21 09:01 SP [id number]) Hot Pack/Cold Pack Treatment MHP LB Location LB Patient Position Sitting Treatment Duration (minutes) 4 Patient Tolerance Good Comments Good feedback response to MHP for LB discomfort. States uses at home. PT-OP-T Assessment and Plan Start: 08/23/21 17:58 Freq: Status: Active Protocol: Document 10/11/21 09:06 SP (Rec: 10/11/21 09:58 SP [id number]) Physical Therapy Assessment Goals Four Impairment Decreased function. Impairment Function limited due to pain: LEFS score 50 (20-39% impaired, score 48-62) JOHN: 9/50 = 18/100 (1-19% impaired, score 1-19). Concrete Products Machine Operator Goal (LTG) Improve function per LEFS score > 62 (1-19% impaired, score 63-79), or JOHN score 10 or less. (10/04/21: JOHN score is 10)) LTG Duration 11/25/21 (10/04/21: MET GOAL) Three Impairment Decreased ambulatory ability due to R hip pain. Impairment Antalgic gait. Not able to walk for exercise due to R hip pain. Short Term Goal (STG) Pt will be able to tolerate walking 1/[address] to [facility] and back prior to onset of pain causing antalgic gait. 09/25/21: MET GOAL: was able to walk to park and back with no pain, did sit on bench for rest. STG Duration 10/12/21 (GOAL MET: 09/25/21) Longterm Goal (LTG) Walk daily to [place] park and back easily and without limp. 09/25/21: Progressing: maybe little trunk wt shift/ limp when returned to /from park and seated rest, can't walk there, full loop and back yet. 10/02/21: progressing able walk 1.5 miles with incline only breath recovery stand rest needed. (10/04/21: Able to walk to park and back). LTG Duration 11/25/21 (progressin) Two Impairment R hip pain (6-7) & R LBP ( -05/27) Impairment Diffculty sleeping due to R hip and R low back pain. Short Term Goal (STG) Pt will be educated in best positions for nighttime sleep to minimize R hip/R LB pain. STG Duration 08/31/21 (09/04/21; MET GOAL) Longterm Goal (LTG) Pt will be able to sleep at night in a comfortable position without disturbing sleep due to pain. 09/28/21: progressing in 7 day incriment waking up 3 nights due to back pain. She reports takes Tylenol pm nightly to assist sleep. 10/02/21: progressing: was doing well but last night had back pain unable to get relief . (10/04/21: Has R LBP most notably when turning, NO R hip pain). LTG Duration 11/25/21 (10/04/21: progressing) One Impairment Lacks appropriate HEP Short Term Goal (STG) Pt will be educated in proper standing posture to minimize LB strain. 09/28/21: progressing: added wall posture for awareness in trunk alignment then away from wall. STG Duration 09/14/21 progressing 09/28/21 Longterm Goal (LTG) Pt will be independent with a self care HEP to manage her R hip/LBP. (08/31/21: I/S pt in TA tightening for core stability) (09/04/21: I/S pt in trunk flex stretch in sitting) (09/14/21: HEP: Trunk rot & SB stretch) 09/21/21: added: LTR, HS neural glide, piriformis stretch, trunk flexion stretch, pelvic realignment exercises, see HOs provided. 10/02/21: added , standing rows, shld ext w/ #2 TB, STS. : reviewed standign ext/ rows and added trunk flexion # 3 with good TA fac. LTG Duration 11/25/21 (10/11/21: Progressed) Assessment Summary Assessment Pt good feedback to bug, and supine stretching. Trialed quadruped UE/ LE ext but difficult coordination and wrist discomfort so DC. Post seated LS flexion stretching, review resisted increased #3 TB UE ext/row and added resisted LS TB flexion stated LB improved no pain. Cues required for set up. Physical Therapy Plan Frequency and Duration Frequency of Treatment 2x/Week Plan of Care Start Date 08/28/21 Plan of Care End Date 11/25/21 Therapeutic Interventions Therapeutic Interventions Gait Training,Home Exercise Program,Joint Mobilizations, Manual Therapy,Neuromuscular Re-education,Patient/Caregiver Education,Self-Care/Home Management,Soft Tissue Mobilization,Taping, Therapeutic Exercises Modalities Cold Pack/Ice Massage,Hot Packs Other Therapeutic Interventions Iontophoresis with 4mg/ml Dexamethasone with Sodium Phosphate. Next Visit Focus/Plan Next Note Type Treatment Note Next Visit Plan Next tx: Review resisted core/ UE HEP, LEFS Q, Review proper stand/sit posture with handout issued if needed (STG #1), progress functional mobility/core stability & gait training, Brent flexion ( due to DDD in lower lumbar spine), and gentle core strengthening. Assess: hip ext mobility ( iliopsoas). HEP: Add ex's for hip strengthening: R AB/AD/IR; L AB/ER/IR as tolerated. POC: Improve trunk mobility (flex, R rot, L SB). Manual therapy (scar mob, R Ilipsoas & QL release, ? K-tape abdomen , balance pelvis as needed. End MH only as needed due to hx of blood clots.
--- NOTE | 2021-10-16 17:52 | PT.OTN ---
Current Diagnoses Pain in right hip (10/16/21) Dorsalgia, unspecified (10/16/21) Muscle weakness (generalized) (10/16/21) Physical Therapy Treatment Note PT-OP-A Visit Information Start: 08/23/21 17:58 Freq: Status: Active Protocol: Document 10/16/21 09:04 LRN (Rec: 10/16/21 09:49 LRN [id number]) Out-Patient Physical Therapy Visit Information Visit Information Visit Type Treatment Note Visit Start Time 09:04 Visit Stop Time 09:45 Total Visit Minutes 41 Visit Number 14 Evaluation Information Evaluation Date 08/28/21 Precautions Precautions Per intake form and pt: Osteoarthritis of R Hip, fingers & L toe (pre-surgery showed arthritis); DVT and 2 clots to R kidney and liver, and mild heart attack - in early 50's that pt attributes to being in bed a lot due sickness from Ulcerative colitis. 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 L TMJ dysfunction-couldn't open mouth x 1 (resolved on own) - 2 months ago. PT-OP-B Current Condition Start: 08/23/21 17:58 Freq: Status: Active Protocol: Document 08/28/21 09:52 LRN (Rec: 08/28/21 12:46 LRN [id number]) Current Condition History of Current Condition Onset Date R Hip pain 1 yr ago, Back pain ~ 6 months ago Current Complaints Deep R lateral hip pain, R LB/ SIJ pain History of Current Condition Started with R hip pain of insidious onset, recent x-rays showing arthritis. R low low back started to hurt because walking different. R Hip pain throbs, deep, Going up stairs painful, not painful descending, but fearful of falling. Denies falls on stairs. 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 Physical therapy for L hip 2017 for bursitis in [facility]. Had cortisone injections (2 in [place], 1 at [facility]), 3rd injection calmed the hip pain down to nothing, wouldn't even call it pain. Future Testing and Treatments Planned None. Developmental History Developmental History Mother of 2 children of vaginal births. Last difficulties due to bladder infections. 2 surgerical scars from hip to hip across abdomen due to 1) bladder lift at age 28-29, and 2) hyste age 40. Treatment Goals Patient/Caregiver Goals Pt goal with therapy: Walk daily to [facility] and back easily and without limp, Not have pain at night because hurting and disturbing sleep. Prior Functional Status Baseline Function- ADL's Independent Baseline Function- Mobility Independent Baseline Function- Work/School Walked 1-3 miles in neighborhoods/[place]. Baseline Function- Other No pain in R hip or R SIJ/LB previously. Current Functional Impairments (Reported) Functional Limitations- ADL's Interfers with sleeping, getting in/out of tub to shower (move slow and hangs onto sides), limited in bending over,. Balance has changed can't get in/out of tub without hanging onto sometihng. Denies difficulty with transfer up/down from commode. Functional Limitations- Mobility/Gait Interfers with walking, not able to walk to [facility] and back. Difficulty ascending stairs ( no difficulty descending stairs) Limps/Hobbles after prolonged sitting also after weeding. Personal Factors Other Personal Factors That May Effect OA R hip, Dx per pt of blood Therapy/Recovery clotting disorder. PT-OP-C Subjective Start: 08/23/21 17:58 Freq: Status: Active Protocol: Document 10/16/21 09:04 LRN (Rec: 10/16/21 09:49 LRN [id number]) OP-PT Subjective Patient Comments Patient Comments States she had a good weekend, her R hip wasn't bothering her much at all. WAlked to [facility] and [facility] (~1.5 miles) and can walk from house 3/4 of mile in neighborhood with incline without having to stop . No pain while walking but after a day of walking in the evenining the LB is throbbing. Has no pain getting in/out of car. Patient Questionnaires Lower Extremity Functional Scale LEFS Score 57 LEFS Impairment 20 to 39% Impaired (Score 48- 62) PT-OP-J Posture/Palpation/Skin Start: 08/23/21 17:58 Freq: Status: Active Protocol: Document 08/31/21 09:57 LRN (Rec: 08/31/21 10:41 LRN [id number]) Palpation Assessment Location Leg length Palpation Location Ankles Palpation Details Supine L leg long > Long sit R leg long. PT-OP-K Range of Motion Start: 08/23/21 17:58 Freq: Status: Active Protocol: Document 08/28/21 09:52 LRN (Rec: 08/28/21 12:46 LRN [id number]) Lumbar Spine Range of Motion Lumbar Spine Active Degrees Testing Position Standing Flexion 40 Extension 12 Rotation Left 10 Rotation Right 5 Lateral Flexion Left 3 Lateral Flexion Right 5 ROM Limitations Pain Comments Trunk flexion is 40 deg's with hip flexion 25 deg's (true trunk flex is 15 deg's). Trunk extension is 12 deg's with hip ext 0 deg's (true trunk ext is 12 deg's). Hip Goniometric Range of Motion Hip Right Passive Hip ROM WFL No Testing Position Supine Straight Leg Raise 75 Abduction 40 Internal Rotation 20 External Rotation 70 Left Passive Testing Position Supine Straight Leg Raise 80 Abduction 40 Internal Rotation 25 External Rotation 75 PT-OP-L Special Tests Start: 08/23/21 17:58 Freq: Status: Active Protocol: Document 08/28/21 09:52 LRN (Rec: 08/28/21 12:46 LRN [id number]) Special Tests Lumbar Spine Special Tests Straight Leg Raise Test Results - bilaterally Comments 75 R, 80 L Compression Test Results neg Comments No increase pain, pt losses stability in L/S extension direction Standing Flexion Test Results neg Comments No change in R LBP Slump Test Results R LE: neg Comments No change in R LBP Hip Special Tests Stinchfield Resisted Hip Flexion Test Results R hip: Positive Comments Pain Log Roll Test Test Results neg Comments No change in pain WILLIAMS Test Results R hip: Positive Comments Pain deep in R hip joint. PT-OP-M Strength Start: 08/23/21 17:58 Freq: Status: Active Protocol: Document 10/04/21 11:23 LRN (Rec: 10/04/21 12:15 LRN [id number]) Hip Strength Hip Manual Muscle Testing Right Flexion (L2) 5 Normal Extension (S1) 5 Normal Abduction 3 Fair Adduction 2 Poor External Rotation 5 Normal Internal Rotation 3 Fair Left Flexion (L2) 4 Good Extension (S1) 5 Normal Abduction 3 Fair Adduction 5 Normal External Rotation 3+ Fair+ Internal Rotation 3 Fair PT-OP-Q Treatments Start: 08/23/21 17:58 Freq: Status: Active Protocol: Document 10/16/21 09:04 LRN (Rec: 10/16/21 09:49 LRN [id number]) Therapeutic Exercises Supine Exercises bug Supine Exercise Name (HEP)LE ext alternate & same side UE stretches back Side bilateral Reps/Minutes 15x 2 Comments improved form, painfree LTR Supine Exercise Name LTR (HEP) Side bilateral Reps/Minutes 3-5 sec hold x10 each side Comments Cuing for equal mvmvt side to side piriformis stretch Supine Exercise Name Foot over knee and knee to opp shldr - HEP Side bilateral Equipment Used grasped knee to opp chest Reps/Minutes 30 x2 Comments Review needed R KTC stretch Supine Exercise Name KTC stretch w/ knee straight Side right Reps/Minutes 30 x3 Comments good HS stretch Prone Exercises Hip Ext Prone Exercise Name Hip Ext: added to HEP Side bilateral Equipment Used pillows under pelvis Reps/Minutes 2 s hold x10 Comments cued TA awareness, sheron lift, no LB recruitment Sitting Exercises STS Sitting Exercise Name STS training from variable hgt surface including 90/90 at hips/knees Reps/Minutes 12' Comments Much cuing initially needed for getting COG over feet. Trunk flex stretch Sitting Exercise Name LS flexion 1. stretch 2. resisted flexion added to HEP Resistance TB #3 Reps/Minutes stretch 30 x3, x15 trunk flexion Comments Review needed, cuing to tuck elbows in. Self-Care/Home Management Treatment Education Other Education Educated pt in Body Mechanics Basics with handout issued. Discussed use of TA with uphill walking. PT-OP-R Modalities Start: 08/23/21 17:58 Freq: Status: Active Protocol: Document 10/02/21 08:17 SP (Rec: 10/02/21 09:01 SP [id number]) Hot Pack/Cold Pack Treatment MHP LB Location LB Patient Position Sitting Treatment Duration (minutes) 4 Patient Tolerance Good Comments Good feedback response to MHP for LB discomfort. States uses at home. PT-OP-T Assessment and Plan Start: 08/23/21 17:58 Freq: Status: Active Protocol: Document 10/16/21 09:04 LRN (Rec: 10/16/21 09:49 LRN [id number]) Physical Therapy Assessment Goals Four Impairment Decreased function. Impairment Function limited due to pain: LEFS score 50 (20-39% impaired, score 48-62) JOHN: 9/50 = 18/100 (1-19% impaired, score 1-19). Government Services Professional Goal (LTG) Improve function per LEFS score > 62 (1-19% impaired, score 63-79), or JOHN score 10 or less. (10/04/21: JOHN score is 10)) (10/16/21: LEFS is 57/80) LTG Duration 11/25/21 (10/04/21: MET GOAL) Three Impairment Decreased ambulatory ability due to R hip pain. Impairment Antalgic gait. Not able to walk for exercise due to R hip pain. Short Term Goal (STG) Pt will be able to tolerate walking 1/[address] to [place] park and back prior to onset of pain causing antalgic gait. 09/25/21: MET GOAL: was able to walk to park and back with no pain, did sit on bench for rest. STG Duration 10/12/21 (GOAL MET: 09/25/21) Government Services Professional Goal (LTG) Walk daily to [place] park and back easily and without limp. 09/25/21: Progressing: maybe little trunk wt shift/ limp when returned to /from park and seated rest, can't walk there, full loop and back yet. 10/02/21: progressing able walk 1.5 miles with incline only breath recovery stand rest needed. (10/04/21: Able to walk to park and back). (10/16/21: Can easily walk to park and back without a limp and no pain onset in the evening). LTG Duration 11/25/21 (10/16/21: MET GOAL) Two Impairment R hip pain (6-7/10) & R LBP (3 -4/10) Impairment Diffculty sleeping due to R hip and R low back pain. Short Term Goal (STG) Pt will be educated in best positions for nighttime sleep to minimize R hip/R LB pain. STG Duration 08/31/21 (09/04/21; MET GOAL) Government Services Professional Goal (LTG) Pt will be able to sleep at night in a comfortable position without disturbing sleep due to pain. 09/28/21: progressing in 7 day incriment waking up 3 nights due to back pain. She reports takes Tylenol pm nightly to assist sleep. 10/02/21: progressing: was doing well but last night had back pain unable to get relief . (10/04/21: Has R LBP most notably when turning, NO R hip pain). (10/16/21: Past few nights have slept comfortably, 5/7 nights). LTG Duration 11/25/21 (10/16/21: progressing, 5/7 days comfortablee) One Impairment Lacks appropriate HEP Short Term Goal (STG) Pt will be educated in proper standing posture to minimize LB strain. 09/28/21: progressing: added wall posture for awareness in trunk alignment then away from wall. 10/16/21: Pt able to perform STS with good posture. STG Duration 09/14/21 (10/16/21: MET GOAL ) Government Services Professional Goal (LTG) Pt will be independent with a self care HEP to manage her R hip/LBP. (08/31/21: I/S pt in TA tightening for core stability) (09/04/21: I/S pt in trunk flex stretch in sitting) (09/14/21: HEP: Trunk rot & SB stretch) 09/21/21: added: LTR, HS neural glide, piriformis stretch, trunk flexion stretch, pelvic realignment exercises, see HOs provided. 10/02/21: added , standing rows, shld ext w/ #2 TB, STS. : reviewed standing ext/ rows and added trunk flexion # 3 with good TA fac. LTG Duration 11/25/21 (10/11/21: Progressed) Progress Towards Goals Progress Comments Pt is sleeping comfortably at nighttime 5 of 7 nights. Assessment Summary Assessment Pt needs v. assist with ex's and phys assist with bug due to poor coordination of UE /LE mvmt. Fair recall of sitting trunk flex strengthening, but pt able to perform without pain. Pt able to perform sit<>stand with good control and form after training. LEFS is 57/80 (20- 39% impaired, score 48-62). Physical Therapy Plan Frequency and Duration Frequency of Treatment 2x/Week Plan of Care Start Date 08/28/21 Plan of Care End Date 11/25/21 Next Visit Focus/Plan Next Note Type Treatment Note Next Visit Plan Progress functional mobility/ core stability & gait training , Brent flexion (due to DDD in lower lumbar spine), and gentle core strengthening. Assess: hip ext mobility ( iliopsoas) for manual release or ex stretch. HEP: Add ex's for hip strengthening: R AB/AD/IR; L AB/ER/IR as tolerated. POC: Improve trunk mobility (flex, R rot, L SB). Manual therapy (scar mob, R Ilipsoas & QL release, ? K-tape abdomen , balance pelvis as needed. End MH only as needed due to hx of blood clots.
--- NOTE | 2021-10-18 09:00 | PT.OTN ---
Current Diagnoses Pain in right hip (10/18/21) Dorsalgia, unspecified (10/18/21) Muscle weakness (generalized) (10/18/21) Physical Therapy Treatment Note PT-OP-A Visit Information Start: 08/23/21 17:58 Freq: Status: Active Protocol: Document 10/18/21 08:21 SP (Rec: 10/18/21 09:05 SP [id number]) Out-Patient Physical Therapy Visit Information Visit Information Visit Type Treatment Note Visit Start Time 08:21 Visit Stop Time 09:00 Total Visit Minutes 39 Visit Number 15 Number of REGISTERED SALES ASSISTANT Visits 1 Evaluation Information Evaluation Date 08/28/21 Precautions Precautions Per intake form and pt: Osteoarthritis of R Hip, fingers & L toe (pre-surgery showed arthritis); DVT and 2 clots to R kidney and liver, and mild heart attack - in early 50's that pt attributes to being in bed a lot due sickness from Ulcerative colitis. 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 L TMJ dysfunction-couldn't open mouth x 1 (resolved on own) - 2 months ago. PT-OP-B Current Condition Start: 08/23/21 17:58 Freq: Status: Active Protocol: Document 08/28/21 09:52 LRN (Rec: 08/28/21 12:46 LRN [id number]) Current Condition History of Current Condition Onset Date R Hip pain 1 yr ago, Back pain ~ 6 months ago Current Complaints Deep R lateral hip pain, R LB/ SIJ pain History of Current Condition Started with R hip pain of insidious onset, recent x-rays showing arthritis. R low low back started to hurt because walking different. R Hip pain throbs, deep, Going up stairs painful, not painful descending, but fearful of falling. Denies falls on stairs. 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 Physical therapy for L hip 2017 for bursitis in [facility]. Had cortisone injections (2 in [place], 1 at [facility]), 3rd injection calmed the hip pain down to nothing, wouldn't even call it pain. Future Testing and Treatments Planned None. Developmental History Developmental History Mother of 2 children of vaginal births. Last difficulties due to bladder infections. 2 surgerical scars from hip to hip across abdomen due to 1) bladder lift at age 28-29, and 2) hyste age 40. Treatment Goals Patient/Caregiver Goals Pt goal with therapy: Walk daily to [place] park and back easily and without limp, Not have pain at night because hurting and disturbing sleep. Prior Functional Status Baseline Function- ADL's Independent Baseline Function- Mobility Independent Baseline Function- Work/School Walked 1-3 miles in neighborhoods/[place]. Baseline Function- Other No pain in R hip or R SIJ/LB previously. Current Functional Impairments (Reported) Functional Limitations- ADL's Interfers with sleeping, getting in/out of tub to shower (move slow and hangs onto sides), limited in bending over,. Balance has changed can't get in/out of tub without hanging onto sometihng. Denies difficulty with transfer up/down from commode. Functional Limitations- Mobility/Gait Interfers with walking, not able to walk to [place] park and back. Difficulty ascending stairs ( no difficulty descending stairs) Limps/Hobbles after prolonged sitting also after weeding. Personal Factors Other Personal Factors That May Effect OA R hip, Dx per pt of blood Therapy/Recovery clotting disorder. PT-OP-C Subjective Start: 08/23/21 17:58 Freq: Status: Active Protocol: Document 10/18/21 08:21 SP (Rec: 10/18/21 09:05 SP [id number]) OP-PT Subjective Patient Comments Patient Comments Pt stated doing ADLs with more natural movement and less thoughtfulness. Getting out of chair TA awareness still. Stair mgt 1 UE contact for safety balance still. She stated leaving for [place] ( [place]) and wanting to DC with self and gym program during visits left. Might look into going to pool water walking after get instruction of safety in water due cant swim. Started weight watchers and lost 20# since May, feeling better. PT-OP-J Posture/Palpation/Skin Start: 08/23/21 17:58 Freq: Status: Active Protocol: Document 08/31/21 09:57 LRN (Rec: 08/31/21 10:41 LRN [id number]) Palpation Assessment Location Leg length Palpation Location Ankles Palpation Details Supine L leg long > Long sit R leg long. PT-OP-K Range of Motion Start: 08/23/21 17:58 Freq: Status: Active Protocol: Document 08/28/21 09:52 LRN (Rec: 08/28/21 12:46 LRN [id number]) Lumbar Spine Range of Motion Lumbar Spine Active Degrees Testing Position Standing Flexion 40 Extension 12 Rotation Left 10 Rotation Right 5 Lateral Flexion Left 3 Lateral Flexion Right 5 ROM Limitations Pain Comments Trunk flexion is 40 deg's with hip flexion 25 deg's (true trunk flex is 15 deg's). Trunk extension is 12 deg's with hip ext 0 deg's (true trunk ext is 12 deg's). Hip Goniometric Range of Motion Hip Right Passive Hip ROM WFL No Testing Position Supine Straight Leg Raise 75 Abduction 40 Internal Rotation 20 External Rotation 70 Left Passive Testing Position Supine Straight Leg Raise 80 Abduction 40 Internal Rotation 25 External Rotation 75 PT-OP-L Special Tests Start: 08/23/21 17:58 Freq: Status: Active Protocol: Document 08/28/21 09:52 LRN (Rec: 08/28/21 12:46 LRN [id number]) Special Tests Lumbar Spine Special Tests Straight Leg Raise Test Results - bilaterally Comments 75 R, 80 L Compression Test Results neg Comments No increase pain, pt losses stability in L/S extension direction Standing Flexion Test Results neg Comments No change in R LBP Slump Test Results R LE: neg Comments No change in R LBP Hip [facility]isted [facility] Flexion Test Results R hip: Positive Comments Pain Log Roll Test Test Results neg Comments No change in pain WILLIAMS Test Results R hip: Positive Comments Pain deep in R hip joint. PT-OP-M Strength Start: 08/23/21 17:58 Freq: Status: Active Protocol: Document 10/04/21 11:23 LRN (Rec: 10/04/21 12:15 LRN [id number]) Hip Strength Hip Manual Muscle Testing Right Flexion (L2) 5 Normal Extension (S1) 5 Normal Abduction 3 Fair Adduction 2 Poor External Rotation 5 Normal Internal Rotation 3 Fair Left Flexion (L2) 4 Good Extension (S1) 5 Normal Abduction 3 Fair Adduction 5 Normal External Rotation 3+ Fair+ Internal Rotation 3 Fair PT-OP-Q Treatments Start: 08/23/21 17:58 Freq: Status: Active Protocol: Document 10/18/21 08:21 SP (Rec: 10/18/21 09:05 SP [id number]) Gym Equipment Therapeutic Ball green 65 cm Exercise Details pelvic tilts f/b/s, core march Ball Size/Color 65 cm Body Position seated Reps/Duration 5 min Comments good performance, occ cues for neutral pelvis-painfree Sport Cord green Exercise Details f/b/s stepping- next tx Therapeutic Exercises Supine Exercises bug Supine Exercise Name (HEP)LE ext alternate & same side UE stretches back Side bilateral Reps/Minutes 15x 2 Comments improved form, painfree Sitting Exercises STS Sitting Exercise Name STS training from variable hgt surface including 90/90 at hips/knees Equipment Used 17 white folding chair, arms clasped front abdomen Reps/Minutes x10 reps Comments good hip hinge and TA fac, painfree Trunk Rot Sitting Exercise Name Trunk Rot stretch Side bilateral Reps/Minutes 10s hold x5 Trunk flex stretch Sitting Exercise Name LS flexion 1. stretch 2. resisted flexion added to HEP Resistance TB #3 Reps/Minutes stretch 30 x3, x15 trunk flexion Comments Review needed, cuing to tuck elbows in. Standing Exercises step ups Standing Exercise Name next add to HEP for aerobic to continue away in [place] paloff press Standing Exercise Name added to HEP (core press out) Side bilateral Resistance TB #2 Reps/Minutes 2x10 Comments cued neutral pelvis, arms bent at side press front navel, soft knees- pnfre wall posture roll ups Standing Exercise Name reviewed for core engage/ alignment feedback Reps/Minutes x5 reps hold 10 sec Comments good form awareness but not needed for HEP Self-Care/Home Management Treatment Education Patient Education Home Exercise Program Other Education Extra time discussed aquatic and exercise classes [facility] and [place] activities did in past and can do home/gym/classes w / ball, pool water weights etc . Added paloff press TB #2 to HEP. PT-OP-R Modalities Start: 08/23/21 17:58 Freq: Status: Active Protocol: Document 10/02/21 08:17 SP (Rec: 10/02/21 09:01 SP [id number]) Hot Pack/Cold Pack Treatment MHP LB Location LB Patient Position Sitting Treatment Duration (minutes) 4 Patient Tolerance Good Comments Good feedback response to MHP for LB discomfort. States uses at home. PT-OP-T Assessment and Plan Start: 08/23/21 17:58 Freq: Status: Active Protocol: Document 10/18/21 08:21 SP (Rec: 10/18/21 09:05 SP [id number]) Physical Therapy Assessment Goals Two Impairment R hip pain (6-7) & R LBP ( -05/27) Impairment Diffculty sleeping due to R hip and R low back pain. Short Term Goal (STG) Pt will be educated in best positions for nighttime sleep to minimize R hip/R LB pain. STG Duration 08/31/21 (09/04/21; MET GOAL) Jail Goal (LTG) Pt will be able to sleep at night in a comfortable position without disturbing sleep due to pain. 09/28/21: progressing in 7 day incriment waking up 3 nights due to back pain. She reports takes Tylenol pm nightly to assist sleep. 10/02/21: progressing: was doing well but last night had back pain unable to get relief . (10/04/21: Has R LBP most notably when turning, NO R hip pain). (10/16/21 and 10/18/21: Past few nights have slept comfortably , 5/7 nights). LTG Duration 11/25/21 (10/18/21: progressing, 5/7 days comfortablee) One Impairment Lacks appropriate HEP Short Term Goal (STG) Pt will be educated in proper standing posture to minimize LB strain. 09/28/21: progressing: added wall posture for awareness in trunk alignment then away from wall. 10/16/21: Pt able to perform STS with good posture. STG Duration 09/14/21 (10/16/21: MET GOAL ) Jail Goal (LTG) Pt will be independent with a self care HEP to manage her R hip/LBP. (08/31/21: I/S pt in TA tightening for core stability) (09/04/21: I/S pt in trunk flex stretch in sitting) (09/14/21: HEP: Trunk rot & SB stretch) 09/21/21: added: LTR, HS neural glide, piriformis stretch, trunk flexion stretch, pelvic realignment exercises, see HOs provided. 10/02/21: added , standing rows, shld ext w/ #2 TB, STS. : reviewed standing ext/ rows and added trunk flexion # 3 with good TA fac. LTG Duration 11/25/21 (10/18/21: none added Progressed) Assessment Summary Assessment Pt responded well but nervous seated theraball review ther ex took in a class wants to return back to since pre COVID - felt more confident after performance with bar at side contact PRN, improved pelvic stab TA facilitation and other UE contact ball for support needed during april painfree, consider DC bug and continue tball for HEP and continue return to classes. Physical Therapy Plan Frequency and Duration Frequency of Treatment 2x/Week Plan of Care Start Date 08/28/21 Plan of Care End Date 11/25/21 Therapeutic Interventions Therapeutic Interventions Gait Training,Home Exercise Program,Joint Mobilizations, Manual Therapy,Neuromuscular Re-education,Patient/Caregiver Education,Self-Care/Home Management,Soft Tissue Mobilization,Taping, Therapeutic Exercises Modalities Cold Pack/Ice Massage,Hot Packs Other Therapeutic Interventions Iontophoresis with 4mg/ml Dexamethasone with Sodium Phosphate. Next Visit Focus/Plan Next Note Type Treatment Note Next Visit Plan Continue return to classes activities. POC:Progress functional mobility/core stability & gait training, Brent flexion ( due to DDD in lower lumbar spine), and gentle core strengthening. Assess: hip ext mobility ( iliopsoas) for manual release or ex stretch. HEP: Add ex's for hip strengthening: R AB/AD/IR; L AB/ER/IR as tolerated. POC: Improve trunk mobility (flex, R rot, L SB). Manual therapy (scar mob, R Ilipsoas & QL release, ? K-tape abdomen , balance pelvis as needed. End MH only as needed due to hx of blood clots.
--- NOTE | 2021-10-23 12:30 | PT.OTN ---
Current Diagnoses Pain in right hip (10/23/21) Dorsalgia, unspecified (10/23/21) Muscle weakness (generalized) (10/23/21) Physical Therapy Treatment Note PT-OP-A Visit Information Start: 08/23/21 17:58 Freq: Status: Active Protocol: Document 10/23/21 09:55 LRN (Rec: 10/23/21 10:37 LRN [id number]) Out-Patient Physical Therapy Visit Information Visit Information Visit Type Treatment Note Visit Start Time 09:55 Visit Stop Time 10:36 Total Visit Minutes 41 Visit Number 16 PT-OP-B Current Condition Start: 08/23/21 17:58 Freq: Status: Active Protocol: Document 08/28/21 09:52 LRN (Rec: 08/28/21 12:46 LRN [id number]) Current Condition History of Current Condition Onset Date R Hip pain 1 yr ago, Back pain ~ 6 months ago Current Complaints Deep R lateral hip pain, R LB/ SIJ pain History of Current Condition Started with R hip pain of insidious onset, recent x-rays showing arthritis. R low low back started to hurt because walking different. R Hip pain throbs, deep, Going up stairs painful, not painful descending, but fearful of falling. Denies falls on stairs. 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 Physical therapy for L hip 2017 for bursitis in [facility]. Had cortisone injections (2 in [place], 1 at [facility]), 3rd injection calmed the hip pain down to nothing, wouldn't even call it pain. Future Testing and Treatments Planned None. Developmental History Developmental History Mother of 2 children of vaginal births. Last difficulties due to bladder infections. 2 surgerical scars from hip to hip across abdomen due to 1) bladder lift at age 28-29, and 2) hyste age 40. Treatment Goals Patient/Caregiver Goals Pt goal with therapy: Walk daily to [place] park and back easily and without limp, Not have pain at night because hurting and disturbing sleep. Prior Functional Status Baseline Function- ADL's Independent Baseline Function- Mobility Independent Baseline Function- Work/School Walked 1-3 miles in neighborhoods/[place]. Baseline Function- Other No pain in R hip or R SIJ/LB previously. Current Functional Impairments (Reported) Functional Limitations- ADL's Interfers with sleeping, getting in/out of tub to shower (move slow and hangs onto sides), limited in bending over,. Balance has changed can't get in/out of tub without hanging onto sometihng. Denies difficulty with transfer up/down from commode. Functional Limitations- Mobility/Gait Interfers with walking, not able to walk to [place] park and back. Difficulty ascending stairs ( no difficulty descending stairs) Limps/Hobbles after prolonged sitting also after weeding. Personal Factors Other Personal Factors That May Effect OA R hip, Dx per pt of blood Therapy/Recovery clotting disorder. PT-OP-C Subjective Start: 08/23/21 17:58 Freq: Status: Active Protocol: Document 10/23/21 09:55 LRN (Rec: 10/23/21 10:37 LRN [id number]) OP-PT Subjective Patient Comments Patient Comments Last week was best week ever!, but sat at picnic table without back support and last night her back was hurting more and required her taking Tylenol, due to sharp pain that took her breath away. Walking in no sharp pain but can feel her LBP. PT-OP-J Posture/Palpation/Skin Start: 08/23/21 17:58 Freq: Status: Active Protocol: Document 08/31/21 09:57 LRN (Rec: 08/31/21 10:41 LRN [id number]) Palpation Assessment Location Leg length Palpation Location Ankles Palpation Details Supine L leg long > Long sit R leg long. PT-OP-K Range of Motion Start: 08/23/21 17:58 Freq: Status: Active Protocol: Document 08/28/21 09:52 LRN (Rec: 08/28/21 12:46 LRN [id number]) Lumbar Spine Range of Motion Lumbar Spine Active Degrees Testing Position Standing Flexion 40 Extension 12 Rotation Left 10 Rotation Right 5 Lateral Flexion Left 3 Lateral Flexion Right 5 ROM Limitations Pain Comments Trunk flexion is 40 deg's with hip flexion 25 deg's (true trunk flex is 15 deg's). Trunk extension is 12 deg's with hip ext 0 deg's (true trunk ext is 12 deg's). Hip Goniometric Range of Motion Hip Right Passive Hip ROM WFL No Testing Position Supine Straight Leg Raise 75 Abduction 40 Internal Rotation 20 External Rotation 70 Left Passive Testing Position Supine Straight Leg Raise 80 Abduction 40 Internal Rotation 25 External Rotation 75 PT-OP-L Special Tests Start: 08/23/21 17:58 Freq: Status: Active Protocol: Document 08/28/21 09:52 LRN (Rec: 08/28/21 12:46 LRN [id number]) Special Tests Lumbar Spine Special Tests Straight Leg Raise Test Results - bilaterally Comments 75 R, 80 L Compression Test Results neg Comments No increase pain, pt losses stability in L/S extension direction Standing Flexion Test Results neg Comments No change in R LBP Slump Test Results R LE: neg Comments No change in R LBP Hip Special Tests [facility] Resisted Hip Flexion Test Results R hip: Positive Comments Pain Log Roll Test Test Results neg Comments No change in pain WILLIAMS Test Results R hip: Positive Comments Pain deep in R hip joint. PT-OP-M Strength Start: 08/23/21 17:58 Freq: Status: Active Protocol: Document 10/04/21 11:23 LRN (Rec: 10/04/21 12:15 LRN [id number]) Hip Strength Hip Manual Muscle Testing Right Flexion (L2) 5 Normal Extension (S1) 5 Normal Abduction 3 Fair Adduction 2 Poor External Rotation 5 Normal Internal Rotation 3 Fair Left Flexion (L2) 4 Good Extension (S1) 5 Normal Abduction 3 Fair Adduction 5 Normal External Rotation 3+ Fair+ Internal Rotation 3 Fair PT-OP-Q Treatments Start: 08/23/21 17:58 Freq: Status: Active Protocol: Document 10/23/21 09:55 LRN (Rec: 10/23/21 10:37 LRN [id number]) Therapeutic Exercises Supine Exercises TA tight/jerald heel slides Supine Exercise Name TA tight/Jerald heel slide Equipment Used Sliding sheet Reps/Minutes 4' bug Supine Exercise Name (HEP)LE ext alternate & same side UE stretches back Side bilateral Reps/Minutes 15x 2, 15x lying on pillows Comments Cuing needed for arm motions. LTR Supine Exercise Name LTR (HEP) Side bilateral Reps/Minutes 3-5 sec hold x10 each side Comments Cuing for equal mvmvt side to side piriformis stretch Supine Exercise Name Foot over knee and knee to opp shldr - HEP Side bilateral Equipment Used grasped knee to opp chest Reps/Minutes 30 x2 Comments Review needed R KTC stretch Supine Exercise Name KTC stretch w/ knee straight Side right Reps/Minutes 30 x3 Comments good HS stretch Manual Therapy Treatment Soft Tissue Mobilization Jerald Piriformis Release Body Location Jerald Piriformis Release Mobilization Type Sustained Pressure Intensity/Depth Moderate Body Position Supine Comments R harder to release than L. L QL Body Location L QL Mobilization Type Myofascial Release,Strumming, Sustained Pressure Intensity/Depth Moderate Body Position Prone over pillows R Trunk Body Location R QL Mobilization Type Strumming,Sustained Pressure Intensity/Depth Moderate Body Position Supine PT-OP-R Modalities Start: 08/23/21 17:58 Freq: Status: Active Protocol: Document 10/02/21 08:17 SP (Rec: 10/02/21 09:01 SP [id number]) Hot Pack/Cold Pack Treatment MHP LB Location LB Patient Position Sitting Treatment Duration (minutes) 4 Patient Tolerance Good Comments Good feedback response to MHP for LB discomfort. States uses at home. PT-OP-T Assessment and Plan Start: 08/23/21 17:58 Freq: Status: Active Protocol: Document 10/23/21 09:55 LRN (Rec: 10/23/21 10:37 LRN [id number]) Physical Therapy Assessment Goals Two Impairment R hip pain (6-7) & R LBP (3 -05/27) Impairment Diffculty sleeping due to R hip and R low back pain. Short Term Goal (STG) Pt will be educated in best positions for nighttime sleep to minimize R hip/R LB pain. STG Duration 08/31/21 (09/04/21; MET GOAL) Director Business Travel Goal (LTG) Pt will be able to sleep at night in a comfortable position without disturbing sleep due to pain. 09/28/21: progressing in 7 day incriment waking up 3 nights due to back pain. She reports takes Tylenol pm nightly to assist sleep. 10/02/21: progressing: was doing well but last night had back pain unable to get relief . (10/04/21: Has R LBP most notably when turning, NO R hip pain). (10/16/21 and 10/18/21: Past few nights have slept comfortably , 5/7 nights). LTG Duration 11/25/21 (10/18/21: progressing, 5/7 days comfortablee) One Impairment Lacks appropriate HEP Short Term Goal (STG) Pt will be educated in proper standing posture to minimize LB strain. 09/28/21: progressing: added wall posture for awareness in trunk alignment then away from wall. 10/16/21: Pt able to perform STS with good posture. STG Duration 09/14/21 (10/16/21: MET GOAL ) [employer] Business Travel Goal (LTG) Pt will be independent with a self care HEP to manage her R hip/LBP. (08/31/21: I/S pt in TA tightening for core stability) (09/04/21: I/S pt in trunk flex stretch in sitting) (09/14/21: HEP: Trunk rot & SB stretch) 09/21/21: added: LTR, HS neural glide, piriformis stretch, trunk flexion stretch, pelvic realignment exercises, see HOs provided. 10/02/21: added , standing rows, shld ext w/ #2 TB, STS. : reviewed standing ext/ rows and added trunk flexion # 3 with good TA fac. LTG Duration 11/25/21 (10/18/21: none added Progressed) Assessment Summary Assessment Pt reportedly was feeling herself again last week, but after holiday weekend pain worsened. Pt in flare up of LBP (R>L) after sitting over the holiday weekend on a picnic bench and at home with family. Pain with sleeping. Pt feeling LBP with KTC, but not core ex ( bug). Lessening of pain and improved ease of mvmt after therapy reported. Pt R QL tighter than L. Physical Therapy Plan Frequency and Duration Frequency of Treatment 2x/Week Plan of Care Start Date 08/28/21 Plan of Care End Date 11/25/21 Next Visit Focus/Plan Next Note Type Treatment Note Next Visit Plan With setback, slowly progress to painfree before returning to classes activities. POC:Progress functional mobility/core stability & gait training, Brent flexion ( due to DDD in lower lumbar spine), and gentle core strengthening. Assess: hip ext mobility ( iliopsoas) and cont manual release, try ex stretch. HEP: Add ex's for hip strengthening: R AB/AD/IR; L AB/ER/IR when tolerated. POC: Improve trunk mobility (flex, R rot, L SB). Manual therapy (scar mob, R Ilipsoas & R QL release, ? K-tape abdomen, balance pelvis as needed. End MH only as needed due to hx of blood clots.
--- NOTE | 2021-10-25 11:36 | PT-OP ANOTE ---
Pt cancelled at 710 for 945 appt not feeling well.
--- NOTE | 2021-10-30 10:32 | PT.OTN ---
Current Diagnoses Pain in right hip (10/30/21) Dorsalgia, unspecified (10/30/21) Muscle weakness (generalized) (10/30/21) Physical Therapy Treatment Note PT-OP-A Visit Information Start: 08/23/21 17:58 Freq: Status: Active Protocol: Document 10/30/21 09:54 SP (Rec: 10/30/21 10:33 SP [id number]) Out-Patient Physical Therapy Visit Information Visit Information Visit Type Treatment Note Visit Start Time 09:54 Visit Stop Time 10:32 Total Visit Minutes 38 Visit Number 17 Number of CHUCKING MACHINE SET UP OPERATOR TOOL Visits 1 Evaluation Information Evaluation Date 08/28/21 Precautions Precautions Per intake form and pt: Osteoarthritis of R Hip, fingers & L toe (pre-surgery showed arthritis); DVT and 2 clots to R kidney and liver, and mild heart attack - in early 50's that pt attributes to being in bed a lot due sickness from Ulcerative colitis. 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 L TMJ dysfunction-couldn't open mouth x 1 (resolved on own) - 2 months ago. PT-OP-B Current Condition Start: 08/23/21 17:58 Freq: Status: Active Protocol: Document 08/28/21 09:52 LRN (Rec: 08/28/21 12:46 LRN [id number]) Current Condition History of Current Condition Onset Date R Hip pain 1 yr ago, Back pain ~ 6 months ago Current Complaints Deep R lateral hip pain, R LB/ SIJ pain History of Current Condition Started with R hip pain of insidious onset, recent x-rays showing arthritis. R low low back started to hurt because walking different. R Hip pain throbs, deep, Going up stairs painful, not painful descending, but fearful of falling. Denies falls on stairs. 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 Physical therapy for L hip 2017 for bursitis in [facility]. Had cortisone injections (2 in [place], 1 at [facility]), 3rd injection calmed the hip pain down to nothing, wouldn't even call it pain. Future Testing and Treatments Planned None. Developmental History Developmental History Mother of 2 children of vaginal births. Last difficulties due to bladder infections. 2 surgerical scars from hip to hip across abdomen due to 1) bladder lift at age 28-29, and 2) hyste age 40. Treatment Goals Patient/Caregiver Goals Pt goal with therapy: Walk daily to [facility] and back easily and without limp, Not have pain at night because hurting and disturbing sleep. Prior Functional Status Baseline Function- ADL's Independent Baseline Function- Mobility Independent Baseline Function- Work/School Walked 1-3 miles in neighborhoods/[place]. Baseline Function- Other No pain in R hip or R SIJ/LB previously. Current Functional Impairments (Reported) Functional Limitations- ADL's Interfers with sleeping, getting in/out of tub to shower (move slow and hangs onto sides), limited in bending over,. Balance has changed can't get in/out of tub without hanging onto sometihng. Denies difficulty with transfer up/down from commode. Functional Limitations- Mobility/Gait Interfers with walking, not able to walk to [place] park and back. Difficulty ascending stairs ( no difficulty descending stairs) Limps/Hobbles after prolonged sitting also after weeding. Personal Factors Other Personal Factors That May Effect OA R hip, Dx per pt of blood Therapy/Recovery clotting disorder. PT-OP-C Subjective Start: 08/23/21 17:58 Freq: Status: Active Protocol: Document 10/30/21 09:54 SP (Rec: 10/30/21 10:33 SP [id number]) OP-PT Subjective Patient Comments Patient Comments Pt reported doing better, although did sit on picnic table leaning over in conversation and LB started hurting later in the day. Pt states her back is not wakign her up at night anymore. Pt reports leaving for [place] for 3-5 months so next tx will be her last. PT-OP-J Posture/Palpation/Skin Start: 08/23/21 17:58 Freq: Status: Active Protocol: Document 08/31/21 09:57 LRN (Rec: 08/31/21 10:41 LRN [id number]) Palpation Assessment Location Leg length Palpation Location Ankles Palpation Details Supine L leg long > Long sit R leg long. PT-OP-K Range of Motion Start: 08/23/21 17:58 Freq: Status: Active Protocol: Document 08/28/21 09:52 LRN (Rec: 08/28/21 12:46 LRN [id number]) Lumbar Spine Range of Motion Lumbar Spine Active Degrees Testing Position Standing Flexion 40 Extension 12 Rotation Left 10 Rotation Right 5 Lateral Flexion Left 3 Lateral Flexion Right 5 ROM Limitations Pain Comments Trunk flexion is 40 deg's with hip flexion 25 deg's (true trunk flex is 15 deg's). Trunk extension is 12 deg's with hip ext 0 deg's (true trunk ext is 12 deg's). Hip Goniometric Range of Motion Hip Right Passive Hip ROM WFL No Testing Position Supine Straight Leg Raise 75 Abduction 40 Internal Rotation 20 External Rotation 70 Left Passive Testing Position Supine Straight Leg Raise 80 Abduction 40 Internal Rotation 25 External Rotation 75 PT-OP-L Special Tests Start: 08/23/21 17:58 Freq: Status: Active Protocol: Document 08/28/21 09:52 LRN (Rec: 08/28/21 12:46 LRN [id number]) Special Tests Lumbar Spine Special Tests Straight Leg Raise Test Results - bilaterally Comments 75 R, 80 L Compression Test Results neg Comments No increase pain, pt losses stability in L/S extension direction Standing Flexion Test Results neg Comments No change in R LBP Slump Test Results R LE: neg Comments No change in R LBP Hip Special Tests [facility] Resisted Hip Flexion Test Results R hip: Positive Comments Pain Log Roll Test Test Results neg Comments No change in pain WILLIAMS Test Results R hip: Positive Comments Pain deep in R hip joint. PT-OP-M Strength Start: 08/23/21 17:58 Freq: Status: Active Protocol: Document 10/04/21 11:23 LRN (Rec: 10/04/21 12:15 LRN [id number]) Hip Strength Hip Manual Muscle Testing Right Flexion (L2) 5 Normal Extension (S1) 5 Normal Abduction 3 Fair Adduction 2 Poor External Rotation 5 Normal Internal Rotation 3 Fair Left Flexion (L2) 4 Good Extension (S1) 5 Normal Abduction 3 Fair Adduction 5 Normal External Rotation 3+ Fair+ Internal Rotation 3 Fair PT-OP-Q Treatments Start: 08/23/21 17:58 Freq: Status: Active Protocol: Document 10/30/21 09:54 SP (Rec: 10/30/21 10:33 SP [id number]) Therapeutic Exercises Supine Exercises TA tight/jerald heel slides Supine Exercise Name TA tight/Jerald heel slide Equipment Used Sliding folded flat sheet Reps/Minutes x10 reps Comments occasional cue for PPT/TA bracing into B leg ext return into flexion bug Supine Exercise Name (HEP)LE ext alternate & same side UE stretches back Side bilateral Reps/Minutes 15x 2, 15x lying on pillows Comments Cuing needed for arm motions, stated ok not reach to high LTR Supine Exercise Name LTR HEP reviewed Side bilateral Reps/Minutes 3-5 sec hold x10 each side Comments Cuing for equal mvmvt side to side piriformis stretch Supine Exercise Name Foot over knee and knee to opp shldr - HEP Side bilateral Equipment Used grasped knee to opp chest Reps/Minutes 30 x2 Comments good form 10/30/21- reviewed supine and seated for community application Prone Exercises Hip Ext Prone Exercise Name Pt states doesn't like be on stomach so doesn't perform Sidelying Exercises Hip AB/AD Sidelying Exercise Name Hip AB/AD- added to HEP Side bilateral Reps/Minutes x15 Comments cued stacked hip/shld for hip abd, add fac Sitting Exercises Trunk flex stretch Sitting Exercise Name LS flexion 1. stretch 2. resisted flexion added to HEP Resistance TB #3 Reps/Minutes stretch 30 x3, x15 trunk flexion Comments Review needed, cuing to tuck elbows in. Self-Care/Home Management Treatment Education Patient Education Home Exercise Program Other Education -Added hip ADD, ABD on side. -good review stretching HEP -discussed getting on/off motorcycle, safety back posture and movement stretching/ROM in back pre/ post rides. PT-OP-R Modalities Start: 08/23/21 17:58 Freq: Status: Active Protocol: Document 10/02/21 08:17 SP (Rec: 10/02/21 09:01 SP [id number]) Hot Pack/Cold Pack Treatment MHP LB Location LB Patient Position Sitting Treatment Duration (minutes) 4 Patient Tolerance Good Comments Good feedback response to MHP for LB discomfort. States uses at home. PT-OP-T Assessment and Plan Start: 08/23/21 17:58 Freq: Status: Active Protocol: Document 10/30/21 09:54 SP (Rec: 10/30/21 10:33 SP [id number]) Physical Therapy Assessment Goals Two Impairment R hip pain (6-7/10) & R LBP (3 -4/10) Impairment Diffculty sleeping due to R hip and R low back pain. Short Term Goal (STG) Pt will be educated in best positions for nighttime sleep to minimize R hip/R LB pain. STG Duration 08/31/21 (09/04/21; MET GOAL) Assisted Goal (LTG) Pt will be able to sleep at night in a comfortable position without disturbing sleep due to pain. 09/28/21: progressing in 7 day incriment waking up 3 nights due to back pain. She reports takes Tylenol pm nightly to assist sleep. 10/02/21: progressing: was doing well but last night had back pain unable to get relief . (10/04/21: Has R LBP most notably when turning, NO R hip pain). (10/16/21 and 10/18/21: Past few nights have slept comfortably , 5/7 nights). 10/30/21: GOAL MET: Has a been about a week and still no pain waking her up. LTG Duration 11/25/21 (10/30/21: GOAL MET) One Impairment Lacks appropriate HEP Short Term Goal (STG) Pt will be educated in proper standing posture to minimize LB strain. 09/28/21: progressing: added wall posture for awareness in trunk alignment then away from wall. 10/16/21: Pt able to perform STS with good posture. STG Duration 09/14/21 (10/16/21: MET GOAL ) Assisted Goal (LTG) Pt will be independent with a self care HEP to manage her R hip/LBP. (08/31/21: I/S pt in TA tightening for core stability) (09/04/21: I/S pt in trunk flex stretch in sitting) (09/14/21: HEP: Trunk rot & SB stretch) 09/21/21: added: LTR, HS neural glide, piriformis stretch, trunk flexion stretch, pelvic realignment exercises, see HOs provided. 10/02/21: added , standing rows, shld ext w/ #2 TB, STS. : reviewed standing ext/ rows and added trunk flexion # 3 with good TA fac. 10/30/21: added side hip abd, add with good core facilitation reported. LTG Duration 11/25/21 (10/30/21 progressing ) Progress Towards Goals Progress Towards Goals Progressing Toward Goals Progress Comments MET LTG #2 sleeping with no LBP waking herup. Assessment Summary Assessment Pt improving with activity. Still notices if not paying attention to posture, gets stiff and back starts to hurt. Reviewed stretching LB, hip with good feedback response end tx. Good feedback response feel core facilitation to added side hip ABD/ ADD to HEP. Physical Therapy Plan Frequency and Duration Frequency of Treatment 2x/Week Plan of Care Start Date 08/28/21 Plan of Care End Date 11/25/21 Therapeutic Interventions Therapeutic Interventions Gait Training,Home Exercise Program,Joint Mobilizations, Manual Therapy,Neuromuscular Re-education,Patient/Caregiver Education,Self-Care/Home Management,Soft Tissue Mobilization,Taping, Therapeutic Exercises Modalities Cold Pack/Ice Massage,Hot Packs Other Therapeutic Interventions Iontophoresis with 4mg/ml Dexamethasone with Sodium Phosphate. Next Visit Focus/Plan Next Note Type Discharge Summary Next Visit Plan HEP review, how get on/off motorcycle and short ride. Recheck HEP and goals for PT to complete DC. POC:Progress functional mobility/core stability & gait training, Brent flexion ( due to DDD in lower lumbar spine), and gentle core strengthening. Assess: hip ext mobility ( iliopsoas) and cont manual release, try ex stretch. HEP: Add ex's for hip strengthening: R AB/AD/IR; L AB/ER/IR when tolerated. POC: Improve trunk mobility (flex, R rot, L SB). Manual therapy (scar mob, R Ilipsoas & R QL release, ? K-tape abdomen, balance pelvis as needed. End MH only as needed due to hx of blood clots.
--- NOTE | 2021-11-01 10:33 | PT.OTN ---
Current Diagnoses Pain in right hip (11/01/21) Dorsalgia, unspecified (11/01/21) Muscle weakness (generalized) (11/01/21) Physical Therapy Treatment Note PT-OP-A Visit Information Start: 08/23/21 17:58 Freq: Status: Active Protocol: Document 11/01/21 09:53 SP (Rec: 11/01/21 10:40 SP [id number]) Out-Patient Physical Therapy Visit Information Visit Information Visit Type Treatment Note Visit Note DC after this tx, going back to [place] for 3-6 months. Visit Start Time 09:53 Visit Stop Time 10:33 Total Visit Minutes 40 Visit Number 18 Number of BONDERITE OPERATOR Visits 2 Evaluation Information Evaluation Date 08/28/21 Precautions Precautions Per intake form and pt: Osteoarthritis of R Hip, fingers & L toe (pre-surgery showed arthritis); DVT and 2 clots to R kidney and liver, and mild heart attack - in early 50's that pt attributes to being in bed a lot due sickness from Ulcerative colitis. 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 L TMJ dysfunction-couldn't open mouth x 1 (resolved on own) - 2 months ago. PT-OP-B Current Condition Start: 08/23/21 17:58 Freq: Status: Active Protocol: Document 08/28/21 09:52 LRN (Rec: 08/28/21 12:46 LRN [id number]) Current Condition History of Current Condition Onset Date R Hip pain 1 yr ago, Back pain ~ 6 months ago Current Complaints Deep R lateral hip pain, R LB/ SIJ pain History of Current Condition Started with R hip pain of insidious onset, recent x-rays showing arthritis. R low low back started to hurt because walking different. R Hip pain throbs, deep, Going up stairs painful, not painful descending, but fearful of falling. Denies falls on stairs. 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 Physical therapy for L hip 2017 for bursitis in [facility]. Had cortisone injections (2 in [place], 1 at [facility]), 3rd injection calmed the hip pain down to nothing, wouldn't even call it pain. Future Testing and Treatments Planned None. Developmental History Developmental History Mother of 2 children of vaginal births. Last difficulties due to bladder infections. 2 surgerical scars from hip to hip across abdomen due to 1) bladder lift at age 28-29, and 2) hyste age 40. Treatment Goals Patient/Caregiver Goals Pt goal with therapy: Walk daily to [facility] and back easily and without limp, Not have pain at night because hurting and disturbing sleep. Prior Functional Status Baseline Function- ADL's Independent Baseline Function- Mobility Independent Baseline Function- Work/School Walked 1-3 miles in neighborhoods/[place]. Baseline Function- Other No pain in R hip or R SIJ/LB previously. Current Functional Impairments (Reported) Functional Limitations- ADL's Interfers with sleeping, getting in/out of tub to shower (move slow and hangs onto sides), limited in bending over,. Balance has changed can't get in/out of tub without hanging onto sometihng. Denies difficulty with transfer up/down from commode. Functional Limitations- Mobility/Gait Interfers with walking, not able to walk to [facility] and back. Difficulty ascending stairs ( no difficulty descending stairs) Limps/Hobbles after prolonged sitting also after weeding. Personal Factors Other Personal Factors That May Effect OA R hip, Dx per pt of blood Therapy/Recovery clotting disorder. PT-OP-C Subjective Start: 08/23/21 17:58 Freq: Status: Active Protocol: Document 11/01/21 09:53 SP (Rec: 11/01/21 10:40 SP [id number]) OP-PT Subjective Patient Comments Patient Comments Pt reports wants to review some HEP including self massage with ball wall. Wants to know how can make stiffness less after plane ride, was in pain after last flown and had to cancel activities planned when got to destination. PT-OP-J Posture/Palpation/Skin Start: 08/23/21 17:58 Freq: Status: Active Protocol: Document 08/31/21 09:57 LRN (Rec: 08/31/21 10:41 LRN [id number]) Palpation Assessment Location Leg length Palpation Location Ankles Palpation Details Supine L leg long > Long sit R leg long. PT-OP-K Range of Motion Start: 08/23/21 17:58 Freq: Status: Active Protocol: Document 08/28/21 09:52 LRN (Rec: 08/28/21 12:46 LRN [id number]) Lumbar Spine Range of Motion Lumbar Spine Active Degrees Testing Position Standing Flexion 40 Extension 12 Rotation Left 10 Rotation Right 5 Lateral Flexion Left 3 Lateral Flexion Right 5 ROM Limitations Pain Comments Trunk flexion is 40 deg's with hip flexion 25 deg's (true trunk flex is 15 deg's). Trunk extension is 12 deg's with hip ext 0 deg's (true trunk ext is 12 deg's). Hip Goniometric Range of Motion Hip Right Passive Hip ROM WFL No Testing Position Supine Straight Leg Raise 75 Abduction 40 Internal Rotation 20 External Rotation 70 Left Passive Testing Position Supine Straight Leg Raise 80 Abduction 40 Internal Rotation 25 External Rotation 75 PT-OP-L Special Tests Start: 08/23/21 17:58 Freq: Status: Active Protocol: Document 08/28/21 09:52 LRN (Rec: 08/28/21 12:46 LR [id number]) Special Tests Lumbar Spine Special Tests Straight Leg Raise Test Results - bilaterally Comments 75 R, 80 L Compression Test Results neg Comments No increase pain, pt losses stability in L/S extension direction Standing Flexion Test Results neg Comments No change in R LBP Slump Test Results R LE: neg Comments No change in R LBP Hip Special Tests [facility] Resisted [facility] Flexion Test Results R hip: Positive Comments Pain Log Roll Test Test Results neg Comments No change in pain WILLIAMS Test Results R hip: Positive Comments Pain deep in R hip joint. PT-OP-M Strength Start: 08/23/21 17:58 Freq: Status: Active Protocol: Document 10/04/21 11:23 LRN (Rec: 10/04/21 12:15 LRN [id number]) Hip Strength Hip Manual Muscle Testing Right Flexion (L2) 5 Normal Extension (S1) 5 Normal Abduction 3 Fair Adduction 2 Poor External Rotation 5 Normal Internal Rotation 3 Fair Left Flexion (L2) 4 Good Extension (S1) 5 Normal Abduction 3 Fair Adduction 5 Normal External Rotation 3+ Fair+ Internal Rotation 3 Fair PT-OP-Q Treatments Start: 08/23/21 17:58 Freq: Status: Active Protocol: Document 11/01/21 09:53 SP (Rec: 11/01/21 10:40 SP [id number]) Therapeutic Exercises Supine Exercises TA tight/jerald heel slides Supine Exercise Name TA tight/Jerald heel slide- HEP reviewed Equipment Used Sliding folded flat sheet/ pillow case under BLE Reps/Minutes 2x10 reps Comments good PPT/TA bracing into B leg ext return into flexion bug Supine Exercise Name (HEP)LE ext alternate & same side UE stretches back Side bilateral Reps/Minutes 15x 2, 15x lying on pillows Comments cued arms/legs up then move- painfree range- piriformis stretch Supine Exercise Name Foot over knee and knee to opp shldr - HEP Side bilateral Equipment Used grasped knee to opp chest Reps/Minutes 30 x2 Comments reviewed seated plane application Sidelying Exercises Hip AB/AD Sidelying Exercise Name Hip AB/AD- reviewed HEP Side bilateral Reps/Minutes x15 Comments good stacked self corrections, cued knee straight lift, slower Sitting Exercises STS Sitting Exercise Name STS training from variable hgt surface including 90/90 at hips/knees Equipment Used 17 white folding chair, arms clasped front abdomen Reps/Minutes x10 reps Comments good hip hinge and TA fac, painfree Trunk Rot Sitting Exercise Name Trunk Rot stretch Side bilateral Reps/Minutes 10s hold x5 Comments cued perform on plane for mobility and circulation Trunk flex stretch Sitting Exercise Name LS flexion 1. stretch 2. resisted flexion review HEP Resistance AROM stretch, TB #3 Reps/Minutes stretch 30 x3, x15 trunk flexion Comments Review needed, cuing to tuck elbows in. Standing Exercises step ups Standing Exercise Name added to HEP: forward, side Resistance for aerobic, strength, balance Equipment Used 8 step, HR contact x1 for balance recovery Reps/Minutes 10x2 lead each LE Comments cued core fac for balance support paloff press Standing Exercise Name reviewed HEP (core press out) Side bilateral Resistance TB #2+3 together Reps/Minutes x15 Comments cued neutral pelvis, arms bent at side press front navel, soft knees- pnfre self STMs Standing Exercise Name reviewed HEP- ball on wall glut, ES Side right Equipment Used racquetball Reps/Minutes 1 min Comments good feedback response Self-Care/Home Management Treatment Education Patient Education Home Exercise Program Other Education -added step ups forward/ lateral for balance and LE strengthening progression, good feedback. -Discussed and reviewed stretching HEP with physical feedback apply on plane for ROM circulation and decrease stiffness when gets to destination ready to complete activities planned when get there. PT-OP-R Modalities Start: 08/23/21 17:58 Freq: Status: Active Protocol: Document 10/02/21 08:17 SP (Rec: 10/02/21 09:01 SP [id number]) Hot Pack/Cold Pack Treatment MHP LB Location LB Patient Position Sitting Treatment Duration (minutes) 4 Patient Tolerance Good Comments Good feedback response to MHP for LB discomfort. States uses at home. PT-OP-T Assessment and Plan Start: 08/23/21 17:58 Freq: Status: Active Protocol: Document 11/01/21 09:53 SP (Rec: 11/01/21 10:40 SP [id number]) Physical Therapy Assessment Goals Two Impairment R hip pain (-08/26) & R LBP ( -05/27) Impairment Diffculty sleeping due to R hip and R low back pain. Short Term Goal (STG) Pt will be educated in best positions for nighttime sleep to minimize R hip/R LB pain. STG Duration 08/31/21 (09/04/21; MET GOAL) Residential Goal (LTG) Pt will be able to sleep at night in a comfortable position without disturbing sleep due to pain. 09/28/21: progressing in 7 day incriment waking up 3 nights due to back pain. She reports takes Tylenol pm nightly to assist sleep. 10/02/21: progressing: was doing well but last night had back pain unable to get relief . (10/04/21: Has R LBP most notably when turning, NO R hip pain). (10/16/21 and 10/18/21: Past few nights have slept comfortably , 5/7 nights). 10/30/21: GOAL MET: Has a been about a week and still no pain waking her up. LTG Duration 11/25/21 (10/30/21: GOAL MET) One Impairment Lacks appropriate HEP Short Term Goal (STG) Pt will be educated in proper standing posture to minimize LB strain. 09/28/21: progressing: added wall posture for awareness in trunk alignment then away from wall. 10/16/21: Pt able to perform STS with good posture. STG Duration 09/14/21 (10/16/21: MET GOAL ) Residential Goal (LTG) Pt will be independent with a self care HEP to manage her R hip/LBP. (08/31/21: I/S pt in TA tightening for core stability) (09/04/21: I/S pt in trunk flex stretch in sitting) (09/14/21: HEP: Trunk rot & SB stretch) 09/21/21: added: LTR, HS neural glide, piriformis stretch, trunk flexion stretch, pelvic realignment exercises, see HOs provided. 10/02/21: added , standing rows, shld ext w/ #2 TB, STS. : reviewed standing ext/ rows and added trunk flexion # 3 with good TA fac. 10/30/21: added side hip abd, add with good core facilitation reported. 11/01/21: pt feels more confident wtih HEP, added forward/lateral step ups and discussed join class, get out walking more when gets to [facility] to progress activity level and for no LB/R hip pain. LTG Duration 11/25/21 (11/01/21 progressing ) Assessment Summary Assessment Pt reports improving with decrease tightness and R hip and LB recruitment discomfort with HEP stretching, core exercises in all positions, verbalizes better understanding to apply HEP to plane ride for decrease stiffness and circulation. She states is ready to continue on own and will be more active includign, walks, joining call and riding motorcycles with when gets to [place]. Physical Therapy Plan Frequency and Duration Frequency of Treatment 2x/Week Plan of Care Start Date 08/28/21 Plan of Care End Date 11/25/21 Therapeutic Interventions Therapeutic Interventions Gait Training,Home Exercise Program,Joint Mobilizations, Manual Therapy,Neuromuscular Re-education,Patient/Caregiver Education,Self-Care/Home Management,Soft Tissue Mobilization,Taping, Therapeutic Exercises Modalities Cold Pack/Ice Massage,Hot Packs Other Therapeutic Interventions Iontophoresis with 4mg/ml Dexamethasone with Sodium Phosphate. Next Visit Focus/Plan Next Note Type Discharge Summary Next Visit Plan PT to complete DC to HEP.
--- NOTE | 2021-11-06 16:45 | PT.OPDS ---
Current Diagnoses Pain in right hip (11/01/21) Dorsalgia, unspecified (11/01/21) Muscle weakness (generalized) (11/01/21) Visit Care Team Role Provider Type Terrance Barrientos MD Attending Provider Physician Family Provider Primary Care Provider Referring Provider Specialty: Family Practice Address: [address] [place] [address], [id number] Email: [email or web address] Visit Number Visit Number 18 Discharge Summary PT-OP-B Current Condition Start: 08/23/21 17:58 Freq: Status: Active Protocol: Document 08/28/21 09:52 LRN (Rec: 08/28/21 12:46 LRN [id number]) Current Condition History of Current Condition Onset Date R Hip pain 1 yr ago, Back pain ~ 6 months ago Current Complaints Deep R lateral hip pain, R LB/ SIJ pain History of Current Condition Started with R hip pain of insidious onset, recent x-rays showing arthritis. R low low back started to hurt because walking different. R Hip pain throbs, deep, Going up stairs painful, not painful descending, but fearful of falling. Denies falls on stairs. 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 Physical therapy for L hip 2017 for bursitis in [facility]. Had cortisone injections (2 in [place], 1 at [facility]), 3rd injection calmed the hip pain down to nothing, wouldn't even call it pain. Future Testing and Treatments Planned None. Developmental History Developmental History Mother of 2 children of vaginal births. Last difficulties due to bladder infections. 2 surgerical scars from hip to hip across abdomen due to 1) bladder lift at age 28-29, and 2) hyste age 40. Treatment Goals Patient/Caregiver Goals Pt goal with therapy: Walk daily to [place] and back easily and without limp, Not have pain at night because hurting and disturbing sleep. Prior Functional Status Baseline Function- ADL's Independent Baseline Function- Mobility Independent Baseline Function- Work/School Walked 1-3 miles in neighborhoods/[place]. Baseline Function- Other No pain in R hip or R SIJ/LB previously. Current Functional Impairments (Reported) Functional Limitations- ADL's Interfers with sleeping, getting in/out of tub to shower (move slow and hangs onto sides), limited in bending over,. Balance has changed can't get in/out of tub without hanging onto sometihng. Denies difficulty with transfer up/down from commode. Functional Limitations- Mobility/Gait Interfers with walking, not able to walk to [place] park and back. Difficulty ascending stairs ( no difficulty descending stairs) Limps/Hobbles after prolonged sitting also after weeding. Personal Factors Other Personal Factors That May Effect OA R hip, Dx per pt of blood Therapy/Recovery clotting disorder. PT-OP-C Subjective Start: 08/23/21 17:58 Freq: Status: Active Protocol: Document 11/01/21 09:53 SP (Rec: 11/01/21 10:40 SP [id number]) OP-PT Subjective Patient Comments Patient Comments Pt reports wants to review some HEP including self massage with ball wall. Wants to know how can make stiffness less after plane ride, was in pain after last flown and had to cancel activities planned when got to destination. PT-OP-J Posture/Palpation/Skin Start: 08/23/21 17:58 Freq: Status: Active Protocol: Document 08/31/21 09:57 LRN (Rec: 08/31/21 10:41 LRN [id number]) Palpation Assessment Location Leg length Palpation Location Ankles Palpation Details Supine L leg long > Long sit R leg long. PT-OP-K Range of Motion Start: 08/23/21 17:58 Freq: Status: Active Protocol: Document 08/28/21 09:52 LRN (Rec: 08/28/21 12:46 LRN [id number]) Lumbar Spine Range of Motion Lumbar Spine Active Degrees Testing Position Standing Flexion 40 Extension 12 Rotation Left 10 Rotation Right 5 Lateral Flexion Left 3 Lateral Flexion Right 5 ROM Limitations Pain Comments Trunk flexion is 40 deg's with hip flexion 25 deg's (true trunk flex is 15 deg's). Trunk extension is 12 deg's with hip ext 0 deg's (true trunk ext is 12 deg's). Hip Goniometric Range of Motion Hip Right Passive Hip ROM WFL No Testing Position Supine Straight Leg Raise 75 Abduction 40 Internal Rotation 20 External Rotation 70 Left Passive Testing Position Supine Straight Leg Raise 80 Abduction 40 Internal Rotation 25 External Rotation 75 PT-OP-L Special Tests Start: 08/23/21 17:58 Freq: Status: Active Protocol: Document 08/28/21 09:52 LRN (Rec: 08/28/21 12:46 LRN [id number]) Special Tests Lumbar Spine Special Tests Straight Leg Raise Test Results - bilaterally Comments 75 R, 80 L Compression Test Results neg Comments No increase pain, pt losses stability in L/S extension direction Standing Flexion Test Results neg Comments No change in R LBP Slump Test Results R LE: neg Comments No change in R LBP Hip Special Tests [facility] Resisted Hip Flexion Test Results R hip: Positive Comments Pain Log Roll Test Test Results neg Comments No change in pain WILLIAMS Test Results R hip: Positive Comments Pain deep in R hip joint. PT-OP-M Strength Start: 08/23/21 17:58 Freq: Status: Active Protocol: Document 10/04/21 11:23 LRN (Rec: 10/04/21 12:15 LRN [id number]) Hip Strength Hip Manual Muscle Testing Right Flexion (L2) 5 Normal Extension (S1) 5 Normal Abduction 3 Fair Adduction 2 Poor External Rotation 5 Normal Internal Rotation 3 Fair Left Flexion (L2) 4 Good Extension (S1) 5 Normal Abduction 3 Fair Adduction 5 Normal External Rotation 3+ Fair+ Internal Rotation 3 Fair PT-OP-T Assessment and Plan Start: 08/23/21 17:58 Freq: Status: Active Protocol: Document 11/06/21 16:40 LRN (Rec: 11/06/21 16:41 LRN [id number]) Physical Therapy Assessment Goals Four Impairment Decreased function. Impairment Function limited due to pain: LEFS score 50 (20-39% impaired, score 48-62) JOHN: 9/50 = 18/100 (1-19% impaired, score 1-19). Custodial Goal (LTG) Improve function per LEFS score > 62 (1-19% impaired, score 63-79), or JOHN score 10 or less. (10/04/21: JOHN score is 10)) (10/16/21: LEFS is 57/80) LTG Duration 11/25/21 (10/04/21: MET GOAL) Three Impairment Decreased ambulatory ability due to R hip pain. Impairment Antalgic gait. Not able to walk for exercise due to R hip pain. Short Term Goal (STG) Pt will be able to tolerate walking 1/[address] to [place] park and back prior to onset of pain causing antalgic gait. 09/25/21: MET GOAL: was able to walk to park and back with no pain, did sit on bench for rest. STG Duration 10/12/21 (GOAL MET: 09/25/21) Custodial Goal (LTG) Walk daily to [place] park and back easily and without limp. 09/25/21: Progressing: maybe little trunk wt shift/ limp when returned to /from park and seated rest, can't walk there, full loop and back yet. 10/02/21: progressing able walk 1.5 miles with incline only breath recovery stand rest needed. (10/04/21: Able to walk to park and back). (10/16/21: Can easily walk to park and back without a limp and no pain onset in the evening). LTG Duration 11/25/21 (10/16/21: MET GOAL) Two Impairment R hip pain (6-7) & R LBP ( -05/27) Impairment Diffculty sleeping due to R hip and R low back pain. Short Term Goal (STG) Pt will be educated in best positions for nighttime sleep to minimize R hip/R LB pain. STG Duration 08/31/21 (09/04/21; MET GOAL) Printing Estimator Goal (LTG) Pt will be able to sleep at night in a comfortable position without disturbing sleep due to pain. 09/28/21: progressing in 7 day incriment waking up 3 nights due to back pain. She reports takes Tylenol pm nightly to assist sleep. 10/02/21: progressing: was doing well but last night had back pain unable to get relief . (10/04/21: Has R LBP most notably when turning, NO R hip pain). (10/16/21 and 10/18/21: Past few nights have slept comfortably , 5/7 nights). 10/30/21: GOAL MET: Has a been about a week and still no pain waking her up. LTG Duration 11/25/21 (10/30/21: GOAL MET) One Impairment Lacks appropriate HEP Short Term Goal (STG) Pt will be educated in proper standing posture to minimize LB strain. 09/28/21: progressing: added wall posture for awareness in trunk alignment then away from wall. 10/16/21: Pt able to perform STS with good posture. STG Duration 09/14/21 (10/16/21: MET GOAL ) Printing Estimator Goal (LTG) Pt will be independent with a self care HEP to manage her R hip/LBP. (08/31/21: I/S pt in TA tightening for core stability) (09/04/21: I/S pt in trunk flex stretch in sitting) (09/14/21: HEP: Trunk rot & SB stretch) 09/21/21: added: LTR, HS neural glide, piriformis stretch, trunk flexion stretch, pelvic realignment exercises, see HOs provided. 10/02/21: added , standing rows, shld ext w/ #2 TB, STS. : reviewed standing ext/ rows and added trunk flexion # 3 with good TA fac. 10/30/21: added side hip abd, add with good core facilitation reported. 11/01/21: pt feels more confident wtih HEP, added forward/lateral step ups and discussed join class, get out walking more when gets to [facility] to progress activity level and for no LB/R hip pain. LTG Duration 11/25/21 (11/06/21 MET according to verbal report by Laly Majano PTA) Assessment Summary Assessment The pt is being discharged from PT based on the following assessment on the pt's last attended visit 11/01/21 by Laly Majano PTA: Pt reports improving with decrease tightness and R hip and LB recruitment discomfort with HEP stretching, core exercises in all positions, verbalizes better understanding to apply HEP to plane ride for decrease stiffness and circulation. She states is ready to continue on own and will be more active includign, walks, joining call and riding motorcycles with when gets to [place]. Physical Therapy Plan Discharge Physical Therapy Discharge Reasons Goals Met Discharge Comments CLOTH DRIER reviewed pt's HEP on last visit and found pt ready for discharge. Thank you for your referral.
== END 2021-11-09 08:57 | disposition home or self-care (01) ==
LOC: PHYS 09:45
PROVIDERS: Family Provider Family Medicine; PCP Family Medicine; Referring Provider Family Medicine; Visit Provider Family Medicine
DX: M54.9 Dorsalgia, unspecified (principal); M25.551 Pain in right hip; M62.81 Muscle weakness (generalized)
CPT/HCPCS: 97110; 97140; 97162; 97535

== ENCOUNTER → 2022-02-20 11:23 | Outpatient (CLI) | payer MEDICARE, OTHER, SELFPAY | PROVIDERS: Family Provider Family Medicine; PCP Family Medicine; Visit Provider Registered Nurse | DX: R30.0 Dysuria (principal) | CPT/HCPCS: 87086 ==

== ENCOUNTER → 2022-10-17 10:06 | Outpatient (CLI) | payer MEDICARE, OTHER, SELFPAY ==
[2022-10-17 11:09] LABS: Add Manual Diff / Slide Review NO; Basophils Absolute Auto 100 /uL (0-100); Basophils Percent Auto 1.2 % (0-2); Eosinophils Absolute Auto 300 /uL (0-450); Eosinophils Percent Auto 4.7 % (2-4); Lymphocytes Absolute Auto 1100 /uL (1100-4500); Lymphocytes Percent Auto 20.8 % (25-40); Mean Corpuscular HGB Conc 34.7 % (30-36); Mean Corpuscular Volume 100.9 fL (80-100); Monocytes Absolute Auto 700 /uL (0-900); Monocytes Percent Auto 12.1 % (3-14); Neutrophils Absolute Auto 3300 /uL (1500-7000); Neutrophils Percent Auto 61.2 % (50-75); Platelet Count 303 X10^3/uL (150-400); Red Blood Cell Count 4.56 X10^6/uL (4.0-5.2); Red Cell Distribution Width 14.4 % (11.6-14.8); White Blood Cell Count 5.4 X10^3/uL (4.5-11.0)
[2022-10-17 11:22] LABS: Alanine Aminotransferase 114 IU/L (<35); Albumin Globulin Ratio 1.2 (1.0-2.8); Alkaline Phosphatase 68 U/L (38-126); Aspartate Aminotransferase 50 IU/L (14-36); BUN Creatinine Ratio 16.5 (6-22); Blood Urea Nitrogen 13 mg/dL (7-17); Calcium 9.4 mg/dL (8.4-10.2); Carbon Dioxide 29 mmol/L (22-32); Chloride 102 mmol/L (98-107); Cholesterol 220 mg/dL (140-199); Estimated Glomerular Filt Rate > 60 mL/min (>60); Globulin 3.3 g/dL (1.7-4.1); Glucose 101 mg/dL (80-110); HDL Cholesterol 51 mg/dL (40-60); HEMOLYSIS < 15 (0-50); LDL Cholesterol Calculated 138 mg/dL (<100); Potassium 4.5 mmol/L (3.4-5.1); Sodium 138 mmol/L (137-145); Total Protein 7.3 g/dL (6.3-8.2); Triglycerides 155 mg/dL (35-150)
[2022-10-17 11:51] LABS: TSH w/ Reflex to FT4 1.88 uIU/mL (0.47-4.68)
== END ==
PROVIDERS: Family Provider Family Medicine; PCP Family Medicine; Referring Provider Family Medicine; Visit Provider Family Medicine
DX: D68.61 Antiphospholipid syndrome (principal); I48.21 Permanent atrial fibrillation; K51.919 Ulcerative colitis, unspecified with unspecified complications
CPT/HCPCS: 36415; 80053; 80061; 84443; 85025

== ENCOUNTER → 2022-10-29 14:29 | Outpatient (CLI) | payer MEDICARE, OTHER, SELFPAY ==
[2022-10-29 15:03] LABS: INR 4.4 (0.9-1.3); Prothrombin Time 51.2 SECONDS (10.1-12.7)
== END ==
PROVIDERS: Family Provider Family Medicine; PCP Family Medicine; Referring Provider Family Medicine; Visit Provider Family Medicine
DX: I48.91 Unspecified atrial fibrillation (principal)
CPT/HCPCS: 36415; 85610

== ENCOUNTER → 2023-08-27 08:26 | Outpatient (CLI) | payer MEDICARE, OTHER, SELFPAY ==
[2023-08-27 09:39] LABS: Add Manual Diff / Slide Review NO; Basophils Absolute Auto 0 /uL (0-100); Basophils Percent Auto 1.2 % (0-2); Eosinophils Absolute Auto 200 /uL (0-450); Eosinophils Percent Auto 5.4 % (2-4); Hematocrit 47.2 % (36-46); Hemoglobin 15.8 g/dL (12.0-16.0); Lymphocytes Absolute Auto 1000 /uL (1100-4500); Lymphocytes Percent Auto 25.6 % (25-40); Mean Corpuscular HGB Conc 33.5 % (30-36); Mean Corpuscular Hemoglobin 33.7 PG (26-34); Mean Corpuscular Volume 100.4 fL (80-100); Monocytes Absolute Auto 500 /uL (0-900); Monocytes Percent Auto 13.1 % (3-14); Neutrophils Absolute Auto 2200 /uL (1500-7000); Neutrophils Percent Auto 54.7 % (50-75); Platelet Count 329 X10^3/uL (150-400); Red Cell Distribution Width 14.9 % (11.6-14.8); White Blood Cell Count 3.9 X10^3/uL (4.5-11.0)
[2023-08-27 09:46] LABS: Hemoglobin A1C% w Est Avg Glu 5.9 % (4.0-6.0)
[2023-08-27 09:52] LABS: INR 1.7 (0.9-1.3); Prothrombin Time 19.7 SECONDS (9.4-12.5)
[2023-08-27 10:03] LABS: Alanine Aminotransferase 55 IU/L (<35); Albumin 3.8 g/dL (3.5-5.0); Albumin Globulin Ratio 1.2 (1.0-2.8); Alkaline Phosphatase 75 U/L (38-126); Aspartate Aminotransferase 35 IU/L (14-36); BUN Creatinine Ratio 17.1 (6-22); Bilirubin Total 0.6 mg/dL (0.2-1.3); Blood Urea Nitrogen 12 mg/dL (7-17); Calcium 9.5 mg/dL (8.4-10.2); Carbon Dioxide 27 mmol/L (22-32); Chloride 108 mmol/L (98-107); Cholesterol 198 mg/dL (140-199); Estimated Glomerular Filt Rate > 60 mL/min (>60); Globulin 3.2 g/dL (1.7-4.1); Glucose 120 mg/dL (80-110); HDL Cholesterol 58 mg/dL (40-60); HEMOLYSIS < 15 (0-50); LDL Cholesterol Calculated 119 mg/dL (<100); Potassium 4.7 mmol/L (3.4-5.1); Sodium 139 mmol/L (137-145); Triglycerides 106 mg/dL (35-150)
[2023-08-27 10:31] LABS: TSH w/ Reflex to FT4 1.94 uIU/mL (0.47-4.68)
== END ==
PROVIDERS: Family Provider Family Medicine; PCP Family Medicine; Referring Provider Family Medicine; Visit Provider Family Medicine
DX: R73.09 Other abnormal glucose (principal); I48.91 Unspecified atrial fibrillation; K51.90 Ulcerative colitis, unspecified, without complications; D68.61 Antiphospholipid syndrome
CPT/HCPCS: 36415; 80053; 80061; 83036; 84443; 85025; 85610

== ENCOUNTER → 2024-08-13 06:52 | Outpatient (CLI) | payer MEDICARE, OTHER, SELFPAY ==
--- NOTE | 2024-08-13 06:56 | DI.US.S_ITS ---
PROCEDURE: US ABDOMEN COMPLETE INDICATIONS: PAIN TECHNIQUE: Real-time scanning was performed of the abdominal and retroperitoneal organs, with image documentation. Forty-three images. COMPARISON: None. FINDINGS: Liver: Moderate diffuse heterogeneous increased echogenicity of the liver commonly hepatic steatosis or intrinsic hepatic disease. No ultrasound evidence of focal hepatic lesion. Liver measures approximately 13.7 cm in CC dimension of the right lobe within normal limits in size. Gallbladder: Gallbladder is distended normally. No ultrasound evidence of gallstones, no pericholecystic fluid or abnormal gallbladder wall thickening. Biliary ducts: Intrahepatic bile ducts are non-dilated. Extrahepatic bile duct caliber measures 5 mm. Normal is 6-7 mm or less in diameter. Pancreas: Visualized portions of the pancreas are sonographically normal. Spleen: Spleen is normal in size and homogeneous in echotexture. Kidneys: 2.4 cm anechoic cyst right kidney interpolar. Kidneys are normal in size and echotexture. Right kidney measures 11.3 cm long; left kidney measures 11.9 cm long. No hydronephrosis or nephrolithiasis. No solid masses. Aorta: Visualized aorta is normal in caliber at less than 3 cm. Iliacs: Proximal common iliac arteries are normal in caliber at less than 2.5 cm. IVC: Intrahepatic inferior vena cava is patent. Miscellaneous: Intermittent lump to the right of the umbilicus 3.1 x 1.5 x 1.0 cm hernia containing fat only without change with Valsalva. No free abdominal fluid. IMPRESSION: Right periumbilical hernia containing fat only. Diffuse increased echogenicity of the of the liver commonly hepatic steatosis or intrinsic hepatic disease. Right renal cyst. If symptoms persist or worsen, or there is high clinical suspicion of abdominal pelvic abnormality, CT could be performed. Dictated by: Alexei rAvizu M.D. on 08/13/2024 at 8:46 Approved by: Alexei Arvizu M.D. on 08/13/2024 at 9:10
--- NOTE | 2024-08-13 06:56 | DI.MRI.S_ITS ---
PROCEDURE: MR HEAD/BRAIN WO/W CON INDICATIONS: suden onset of hearing loss pulsing in ear on left TECHNIQUE: Noncontrast sagittal T1 spin echo, axial T2 fast spin echo, axial FLAIR, axial gradient echo, axial diffusion and ADC through the brain. Axial/sagittal/coronal 3-D CISS, thin-slice axial T1 spin echo with fat saturation through the skull base. After the administration of contrast, axial and coronal thin-slice T1 spin echo with fat saturation through the skull base, axial and coronal and sagittal T1 spin echo with fat saturation through the brain. COMPARISON: None. FINDINGS: Image quality: Excellent. Trigeminal nerves: No inflammation or mass found. CSF spaces: Ventricles are normal in size and shape. No extra-axial fluid collections. Basal cisterns are patent. Brain: No intracranial bleeds or mass effects. No abnormal intracranial enhancement. Diffusion weighted images show no acute ischemic insults. Velasquez-white matter interface is intact. Brainstem is normal. Normal intravascular flow voids are present. Skull and face: Calvarial marrow signal is normal. Orbits appear normal. Sinuses: Sinuses and mastoids appear clear. IMPRESSION: Source of asymmetric left-sided hearing loss is not identified. Dictated by: Chato Pandey M.D. on 08/13/2024 at 13:53 Approved by: Chato Pandey M.D. on 08/13/2024 at 13:54
[2024-08-13 08:09] LABS: Add Manual Diff / Slide Review NO; Basophils Absolute Auto 100 /uL (0-100); Basophils Percent Auto 1.5 % (0-2); Eosinophils Absolute Auto 300 /uL (0-450); Eosinophils Percent Auto 5.5 % (2-4); Hemoglobin 15.9 g/dL (12.0-16.0); Lymphocytes Absolute Auto 1700 /uL (1100-4500); Lymphocytes Percent Auto 30.2 % (25-40); Mean Corpuscular HGB Conc 33.8 % (30-36); Mean Corpuscular Hemoglobin 33.7 PG (26-34); Mean Corpuscular Volume 99.6 fL (80-100); Monocytes Absolute Auto 500 /uL (0-900); Monocytes Percent Auto 9.2 % (3-14); Neutrophils Absolute Auto 3100 /uL (1500-7000); Neutrophils Percent Auto 53.6 % (50-75); Platelet Count 276 X10^3/uL (150-400); Red Blood Cell Count 4.72 X10^6/uL (4.0-5.2); Red Cell Distribution Width 14.3 % (11.6-14.8); White Blood Cell Count 5.7 X10^3/uL (4.5-11.0)
[2024-08-13 08:41] LABS: Cholesterol 191 mg/dL (140-199); HDL Cholesterol 47 mg/dL (40-60); LDL Cholesterol Calculated 117 mg/dL (<100); Triglycerides 135 mg/dL (35-150)
[2024-08-13 09:08] LABS: TSH w/ Reflex to FT4 2.85 uIU/mL (0.47-4.68)
[2024-08-13 11:01] LABS: Hemoglobin A1C% w Est Avg Glu 5.9 % (4.0-6.0)
== END ==
PROVIDERS: Family Provider Family Medicine; PCP Family Medicine; Referring Provider Family Medicine; Visit Provider Family Medicine
DX: K42.9 Umbilical hernia without obstruction or gangrene (principal); N28.1 Cyst of kidney, acquired; M47.816 Spondylosis without myelopathy or radiculopathy, lumbar region; R10.9 Unspecified abdominal pain; I48.21 Permanent atrial fibrillation; H93.A2 Pulsatile tinnitus, left ear; H91.92 Unspecified hearing loss, left ear; D68.61 Antiphospholipid syndrome; K51.919 Ulcerative colitis, unspecified with unspecified complications; I82.90 Acute embolism and thrombosis of unspecified vein
CPT/HCPCS: 36415; 70553; 76700; 80061; 83036; 84443; 85025; A9579

== ENCOUNTER → 2024-08-17 10:04 | Outpatient (CLI) | payer MEDICARE, OTHER, SELFPAY ==
--- NOTE | 2024-08-17 10:06 | DI.RAD.S_ITS ---
PROCEDURE: XR LUMBAR SPINE 2-3V INDICATIONS: INCREASING LOW BACK PAIN TECHNIQUE: 3 views of the lumbar spine were acquired. COMPARISON: [facility], CR, XR LUMBAR SPINE 2-3V, 07/10/2021, 10:53. FINDINGS: Bones: 5 [id number] vertebrae are present. There is trace retrolisthesis of L1-L2, L2 on L3, L3 on L4. Significant multilevel degenerative disc and foraminal narrowing are present most severe at L3-4, L4-5 and L5-S1. Overall, progressive since 2021. No vertebral body compression fractures. No suspicious bony lesions. Soft tissues: Overlying bowel gas pattern is normal. No suspicious soft tissue calcifications. IVC filter is present. IMPRESSION: Progressive multilevel degenerative changes as above. Dictated by: Michelle East M.D. on 08/17/2024 at 14:16 Approved by: Michelle East M.D. on 08/17/2024 at 14:19
== END ==
PROVIDERS: Family Provider Family Medicine; PCP Family Medicine; Referring Provider Family Medicine; Visit Provider Family Medicine
DX: M47.816 Spondylosis without myelopathy or radiculopathy, lumbar region (principal); M48.061 Spinal stenosis, lumbar region without neurogenic claudication; M48.07 Spinal stenosis, lumbosacral region; R10.9 Unspecified abdominal pain
CPT/HCPCS: 72100

== ENCOUNTER 2024-12-30 18:42 | Emergency (ER) | payer MEDICARE, OTHER, SELFPAY ==
[2024-12-30 18:57] VITALS: BP 141/90; PULSE 97; RESP 16; TEMP 36.8; O2SAT 97; BMI 32.8
--- NOTE | 2024-12-30 19:17 | ED_ITS ---
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 She reports it has been ongoing for the last 2 days she did take some [id number] azo. But now she is having some blood in her urine. She has some mild right low back pain that is not radiating around to her front. She is mildly nauseous no vomiting. Related Data Home Medications ?Medication ?Instructions ?Recorded ?Confirmed infliximab 100 mg intravenous IV Q8W 07/09/21 09/06/24 solution (Remicade) doxycycline hyclate 20 mg tablet 20 mg PO BID 08/05/24 09/06/24 metronidazole 0.75 % topical cream applic topical BID 08/05/24 09/06/24 Previous Rx's ?Medication ?Instructions ?Recorded prothrombin time test strips #6 ea 08/25/18 (Coaguchek PT strips) warfarin 5 mg tablet 5 mg PO DAILY #90 tabs 10/24 levothyroxine 125 mcg tablet 62.5 mcg (1/2 x 125 mcg) PO QAM 10/21/23 #45 tabs carvedilol 3.125 mg tablet 3.125 mg PO BID #180 tabs 0 08/18/24 omeprazole 20 mg capsule,delayed 20 mg PO DAILY #90 ca ps 09/20/24 release amlodipine 5 mg tablet 5 mg PO DAILY #90 tabs 10/06 spironolactone 25 mg tablet 75 mg (3 x 25 mg) PO BID # 540 tabs 12/15/24 semaglutide (weight loss) 1.7 1.7 mg (0.75 mL) SUBCUT QWEEK #3 mL 12/27/24 mg/0.75 mL subcutaneous pen injector cephalexin 500 mg capsule 500 mg PO BID 5 days #10 cap s 12/30/24 Allergies Allergy/AdvReac Type Severity Reaction Status Date / Time sulfamethoxazole (From Allergy Mild Verified 12/30/24 18:59 Bactrim) trimethoprim (From Bactrim) Allergy Mild Verified 12/30/24 18:59 Patient History Medical History (Updated 12/30/24 @ 20:11 by Brittani Peterson DO) Antiphospholipid antibody syndrome Depression Psoriasis Ulcerative colitis Deep vein thrombosis Surgical History S/P total abdominal hysterectomy and bilateral salpingo-oophorectomy Family History Mother Depression Father No problems noted. Exam Initial Vital Signs Initial Vital Signs: Vital Signs Temperature 98.3 F 12/30/24 18:57 Pulse Rate 97 H 12/30/24 18:57 Respiratory Rate 16 12/30/24 18:57 Blood Pressure 141/90 H 12/30/24 18:57 Pulse Oximetry 97 12/30/24 18:57 Oxygen Delivery Method Room Air 12/30/24 18:57 GENERAL: [Well-appearing, well-nourished] and in [no acute] distress. HEENT: Head atraumatic,EOMI, pupils reactive, face symmetric, [moist] mucous membranes CARDIOVASCULAR: Regular rate and rhythm without murmurs, rubs or gallops. RESPIRATORY: Breath sounds equal bilaterally, no wheezes rales or rhonchi. ABDOMEN: Soft, nontender. Normoactive bowel sounds all 4 quadrants. No guarding or rebound. : No CVA tenderness EXTREMITIES: Normal range of motion, no clubbing or edema. Neurovascularly intact NEUROLOGICAL: Alert and oriented x4.Normal gait and speech. SKIN: Warm, dry, no laceration, no petechiae, no rashes or lesions. Course Orders Ordered: ED Orders 12/30/24 19:00 Urinalysis and Microscopic Stat Urine Culture Stat Discontinued Medications Cephalexin HCl (Cephalexin 250 Mg Capsule) 500 mg PO NOW ONE Stop: 12/30/24 20:10 Last Admin: 12/30/24 20:15 Dose: 500 mg Documented By: NONI Vital Signs Vital signs: Vital Signs - 8 hr 12/30/24 18:57 12/30/24 20:16 Temperature 98.3 F 98 F Pulse Rate 97 H 90 Respiratory Rate 16 18 Blood Pressure 141/90 H 122/82 Pulse Oximetry 97 95 Oxygen Delivery Method Room Air Room Air MDM - Female Genitourinary Lab Data Labs: Lab Results 12/30/24 Range/Units 19:00 Urine Color [place] Urine Appearance Clear Urine pH TNP Ur Specific [place] TNP Urine Protein TNP Urine Glucose (UA) TNP Urine Ketones TNP Urine Occult Blood TNP Urine Nitrate TNP Urine Bilirubin TNP Urine Urobilinogen TNP Ur Leukocyte Esterase TNP Urine RBC 0-1/hpf (0-5/HPF) Urine WBC 0-1/hpf (0-5/HPF) Ur Squamous Epith Cells 0-1 /hpf (0-5/HPF) Urine Bacteria Moderate (10-30) H (None) Ur Culture Indicated? Specimen cultured Vol Urine Centrifuged 10ml (spun) MDM Narrative Medical decision making narrative: Patient 69-year-old female having UTI symptoms urinalysis does have some bacteria in it due to [id number] medication unable to analyze. Vitals are stable abdomen is soft nontender no concern for nephrolithiasis or sepsis. Given 1st dose of antibiotic here in the ED with prescription at patient choice of pharmacy Discharge Plan Departure Patient Disposition: Home Clinical Impression: Urinary tract infection Instructions: DI for Urinary Tract Infection (UTI) Activity Restrictions/Additional Instructions: *You have been diagnosed with UTI *What to do: At this time it does look like you have simple UTI *Continue to take medications as directed Keflex 500 mg twice a day for 5 days *Follow up with your primary care provider in 2-3 days or call [phone] *Return to ER if you should have increasing pain nausea vomiting inability to tolerate fluids or any new, worsening or concerning symptoms Prescriptions: New cephalexin 500 mg capsule 500 mg PO BID 5 Days Qty: 10 0RF No Action infliximab [Remicade] 100 mg recon soln IV Q8W warfarin 5 mg tablet 5 mg PO DAILY Qty: 90 3RF Protocol: Dose Management Condition: Friday Dose/Route: 5 mg Instruction: 1 x 5 mg tablet Condition: Friday Dose/Route: 5 mg Instruction: 1 x 5 mg tablet Condition: Friday Dose/Route: 5 mg Instruction: 1 x 5 mg tablet Condition: Friday Dose/Route: 5 mg Instruction: 1 x 5 mg tablet Condition: Dose/Route: 5 mg Instruction: 1 x 5 mg tablet Condition: Friday Dose/Route: 5 mg Instruction: 1 x 5 mg tablet Condition: Friday Dose/Route: 5 mg Instruction: 1 x 5 mg tablet Protocol Text: Adjustment Start Date: Friday12/21/24 INR Value: 1.7 INR Date: 12/20/24 Recheck Date: 12/28/24 Rx Instructions: Take one tablet daily or as directed (DME) Coaguchek PT strip See Dose Instructions .ROUTE .MEDSUPPLY Qty: 6 11RF Dose Instruction: As directed Rx Instructions: As directed for blood coagulation testing every 2 weeks levothyroxine 125 mcg tablet 62.5 mcg PO QAM Qty: 45 3RF carvedilol 3.125 mg tablet 3.125 mg PO BID Qty: 180 1RF omeprazole 20 mg capsule,delayed release(DR/EC) 20 mg PO DAILY Qty: 90 3RF amlodipine 5 mg tablet 5 mg PO DAILY Qty: 90 2RF spironolactone 25 mg tablet 75 mg PO BID Qty: 540 1RF semaglutide (weight loss) 1.7 mg/0.75 mL pen injector 1.7 mg SUBCUT QWEEK Qty: 3 1RF metronidazole 0.75 % cream topical BID doxycycline hyclate 20 mg tablet 20 mg PO BID Referrals: Terrance Barrientos MD [Primary Care Provider, Family Practice] Stand Alone Forms: Patient Portal/API
[2024-12-30 19:22] LABS: Appearance Urine UA Clear; Color Urine UA ORANGE
[2024-12-30 19:35] LABS: Culture Indicated Urine Specimen Cultured
[2024-12-30 20:16] VITALS: BP 122/82; PULSE 90; RESP 18; TEMP 36.6; O2SAT 95
== END 2024-12-30 20:21 | disposition home or self-care (01) ==
PROVIDERS: Emergency Provider Emergency Medicine; PCP Family Medicine
DX: N39.0 Urinary tract infection, site not specified (principal); Z79.01 Long term (current) use of anticoagulants; M54.50 Low back pain, unspecified; R31.9 Hematuria, unspecified
CPT/HCPCS: 81001; 87086; 99283

== ENCOUNTER → 2025-01-05 13:32 | Outpatient (CLI) | payer MEDICARE, OTHER, SELFPAY | PROVIDERS: PCP Family Medicine; Visit Provider Physician Assistant | DX: L29.9 Pruritus, unspecified (principal); R30.0 Dysuria | CPT/HCPCS: 87086; 87210 ==